=== PATIENT | male | born 1935 | race Caucasian/White ===

== ENCOUNTER 2017-03-26 10:22 | Emergency (ER) | payer MEDICARE ==
[~2017-03-26] VITALS: Ht 170.2 cm; Wt 74.0 kg
[~2017-03-26 10:22] MED LIST: ALBU2.5I INH; ALFU10TA2 PO; CARD240C6 PO; CHOL1CAP6 PO; CLOP75 PO; CO Q100C9 PO; COLE625 PO; COMBAER INH; FURO1TAB93 PO; GABA100C2 PO; GLYB1TAB51 PO; IPRA0.03; LANO0.2510 PO; LANTUSP SQ; LISI20 PO; NOVOLOGP2 SQ; OLIV250C PO; OMEGCAP28 PO; POTA20IN2 PO; PRAV10 PO; PRED1 PO; RAPA8CAP PO; ST J81CH PO; SYMB160A INH; TAB-TAB PO; TRIA.1%T TOP; VIT250TA PO; [UNRECOGNIZED DRUG - CODE] EX; [UNRECOGNIZED DRUG - OTHER] PO
[2017-03-26 10:26] VITALS: BP 129/59; PULSE 94; RESP 28; TEMP 97.8; O2SAT 96
[2017-03-26] MEDS ORDERED: GABA100C4 PO (11:04)
[2017-03-26] MEDS ORDERED: NOVOLOGP2 SQ (11:04)
[2017-03-26] MEDS ORDERED: PRED1 PO (11:04)
[2017-03-26] MEDS ORDERED: ASPI-110 PO (11:04)
[2017-03-26] MEDS ORDERED: TAMS0.4C4 PO (11:04)
[2017-03-26] MEDS ORDERED: VITA250T3 PO (11:04)
[2017-03-26] MEDS ORDERED: LANTUS2P SQ ×2 (11:04)
[2017-03-26] MEDS ORDERED: VENTAER INH (11:04)
[2017-03-26] MEDS ORDERED: SYMB80AE INH (11:04)
[2017-03-26 11:22] VITALS: O2SAT 97
--- NOTE | 2017-03-26 11:26 | PD ---
HPI Chief Complaint: Respiratory Symptoms Time Seen by Provider: 11:26 Travel History International Travel<30 days: No Contact w/Intl Traveler<30days: No Traveled to known affect area: No History of Present Illness HPI 81-year-old male with history of CAD, COPD, CABG, recent diagnosis of pulmonary aspergillosis, presents to the emergency department for evaluation of this. Patient states that he has been unable to fill his ITRACONAZOLE and will not be able to for 3 days due to [facility] not having it on stock. He states that he has been short of breath and feels that he needs his antibiotic today for this to get any better. I give him today's dose and the next 3 days dose to take home. States that he has not been feeling well however he is not feeling any acutely worse. Dates he has been taking his breathing treatments but his breathing has not been getting any better. Denies any significant pain. Denies any fever or chills. He has no other symptoms to report. Patient verbalizes marked frustration with this medication being so difficult to obtain. PFSH Past Medical History Hx Anticoagulant Therapy: No Arthritis: No Asthma: Yes Atrial Fibrillation: No Blood Disorders: No Heart Rhythm Problems: Yes Cancer: No Cardiac Catheterization: Yes (X7) Cardiovascular Problems: Yes High Cholesterol: Yes Chemotherapy: No Chest Pain: Yes Congestive Heart Failure: No COPD: Yes Cerebrovascular Accident: No Coronary Artery Disease: Yes Diabetes: Yes Patient Takes Glucophage: No Diminished Hearing: No Endocrine: Yes Gastrointestinal Disorders: No GERD: No Glaucoma: No Genitourinary: No Headaches: No Hepatitis: No Hiatal Hernia: No Hypertension: No Immune Disorder: No Musculoskeletal: No Neurologic: No Psychiatric: No Reproductive: No Respiratory: Yes Migraines: No Myocardial Infarction: Yes (X7) Pancreatitis: Yes Radiation Therapy: No Seizures: No Sleep Apnea: No Ulcer: No Past Surgical History AICD: No Appendectomy: No Arteriovenous Shunt: No Cardiac Surgery: Yes (ANGIOPLASTY AND STENT) Cholecystectomy: No Coronary Artery Bypass Graft: Yes Coronary Stent: Yes (X1) Insulin Pump: No Joint Replacement: No Pacemaker: No Tonsillectomy: Yes Other Surgery: Yes Social History Alcohol Use: No Tobacco Use: No Substance Use: No Allergies-Medications (Allergen,Severity, Reaction): Coded Allergies: Cephalosporins (Verified Allergy, Severe, 03/26/17) Chlor-Trimeton (Verified Allergy, Severe, "MAKES ME FEEL SICK, 04/03/13) Contrast Media (Verified Allergy, Severe, 03/26/17) Hydroxyzine (Verified Allergy, Severe, 03/26/17) Levofloxacin (Verified Allergy, Severe, 03/26/17) Penicillin (Verified Allergy, Severe, RASH,FEVER, 04/03/13) Rocephin (Verified Allergy, Severe, 03/26/17) Sulfa (Verified Allergy, Severe, 03/26/17) Versed (Verified Allergy, Severe, HURT ALL OVER, 04/03/13) Uncoded Allergies: metopro (Allergy, Severe, 03/26/17) Reported Meds & Prescriptions Reported Meds & Active Scripts Active Itraconazole 100 Mg Cap 100 Mg PO BID 7 Days Reported Astragalus Root (Tragacanth) 1 Pow Pow 500 Mg PO DAILY Fish Oil ([place]-3 Fatty Acids) 300 Mg Capsule 1,200 Mg PO Coq10 (Coenzyme Q10 (Ubidecarenone)) 30 Mg Cap 10 Mg PO DAILY Lisinopril 10 Mg Tab 10 Mg PO DAILY Tamsulosin (Tamsulosin HCl) 0.4 Mg Cap 0.4 Mg PO HS Symbicort Inh (Budesonide/Formoterol Fumarate) 80-4.5 Mcg/Act Aero 1 Puff INH Q12HR Novolog Inj (Insulin Aspart) 1,000 Unit/10 Ml Vial 0 SQ DIRECTED Sliding Scale as directed. Lantus Inj (Insulin Glargine) 1,000 Unit/10 Ml Vial 6 Units SQ HS Lantus Inj (Insulin Glargine) 1,000 Unit/10 Ml Vial 30 Units SQ AM Gabapentin 100 Mg Cap 100 Mg PO TID Prednisone 1 Mg Tab 1 Mg PO DAILY Aspirin 81 (Aspirin) 81 Mg Tabdr 81 Mg PO DAILY Vitamin C (Ascorbic Acid) 250 Mg Tab 250 Mg PO Ventolin Hfa 18 GM Inh (Albuterol Sulfate) 90 Mcg/Act Aer 2.5 Puff INH Q4-6H PRN Review of Systems Except as stated in HPI: all other systems reviewed are Neg Physical Exam Narrative GENERAL: Elderly male patient, lying in bed in no acute distress SKIN: Focused skin assessment warm/dry. HEAD: Atraumatic. Normocephalic. EYES: Pupils equal and round. No scleral icterus. No injection or drainage. ENT: No nasal bleeding or discharge. Mucous membranes pink and moist. NECK: Trachea midline. No JVD. CARDIOVASCULAR: Elevated rate and irregular rhythm. No murmur appreciated. RESPIRATORY: No accessory muscle use. Diminished to auscultation. Breath sounds equal bilaterally. GASTROINTESTINAL: Abdomen soft, non-tender, nondistended. Hepatic and splenic margins not palpable. MUSCULOSKELETAL: No obvious deformities. No clubbing. No cyanosis. No edema. NEUROLOGICAL: Awake and alert. No obvious cranial nerve deficits. Motor grossly within normal limits. Normal speech. PSYCHIATRIC: Appropriate mood and affect; insight and judgment normal. Data Data Last Documented VS Vital Signs Date Time Temp Pulse Resp B/P Pulse Ox O2 Delivery O2 Flow Rate FiO2 03/26/17 12:27 96 18 149/89 98 Room Air 03/26/17 11:22 2 03/26/17 10:26 97.8 Orders Complete Blood Count With Diff (03/26/17 11:20) Comprehensive Metabolic Panel (03/26/17 11:20) B-Type Natriuretic Peptide (03/26/17 11:20) Act Partial Throm Time (Ptt) (03/26/17 11:20) Prothrombin Time / Inr (Pt) (03/26/17 11:20) Ckmb (Isoenzyme) Profile (03/26/17 11:20) Troponin I (03/26/17 11:20) Urinalysis - C+S If Indicated (03/26/17 11:20) Blood Culture (03/26/17 11:20) Iv Access Insert/Monitor (03/26/17 11:20) Electrocardiogram (03/26/17 11:20) Ecg Monitoring (03/26/17 11:20) Oximetry (03/26/17 11:20) Oxygen Administration (03/26/17 11:20) Chest, Single Ap (03/26/17 11:20) Sodium Chloride 0.9% Flush (Ns Flush) (03/26/17 11:30) Albuterol-Ipratropium Neb (Duoneb Neb) (03/26/17 11:30) CKMB (03/26/17 11:25) CKMB% (03/26/17 11:25) Itraconazole (Sporanox) (03/26/17 12:15) Dexamethasone Inj (Decadron Inj) (8/12/17 12:45) Labs Laboratory Tests Test 03/26/17 03/26/17 11:25 12:26 White Blood Count 10.1 TH/MM3 Red Blood Count 4.36 MIL/MM3 Hemoglobin 13.6 GM/DL Hematocrit 40.5 % Mean Corpuscular Volume 92.9 FL Mean Corpuscular Hemoglobin 31.1 PG Mean Corpuscular Hemoglobin 33.5 % Concent Red Cell Distribution Width 13.7 % Platelet Count 177 TH/MM3 Mean Platelet Volume 8.8 FL Neutrophils (%) (Auto) 70.6 % Lymphocytes (%) (Auto) 13.4 % Monocytes (%) (Auto) 8.5 % Eosinophils (%) (Auto) 6.8 % Basophils (%) (Auto) 0.7 % Neutrophils # (Auto) 7.1 TH/MM3 Lymphocytes # (Auto) 1.3 TH/MM3 Monocytes # (Auto) 0.9 TH/MM3 Eosinophils # (Auto) 0.7 TH/MM3 Basophils # (Auto) 0.1 TH/MM3 CBC Comment DIFF FINAL Differential Comment Prothrombin Time 10.7 SEC Prothromb Time International 1.0 RATIO Ratio Activated Partial 26.5 SEC Thromboplast Time Sodium Level 140 MEQ/L Potassium Level 4.8 MEQ/L Chloride Level 105 MEQ/L Carbon Dioxide Level 28.4 MEQ/L Anion Gap 7 MEQ/L Blood Urea Nitrogen 33 MG/DL Creatinine 1.46 MG/DL Estimat Glomerular Filtration 46 ML/MIN Rate Random Glucose 210 MG/DL Calcium Level 9.1 MG/DL Total Bilirubin 0.6 MG/DL Aspartate Amino Transf 20 U/L (AST/SGOT) Alanine Aminotransferase 28 U/L (ALT/SGPT) Alkaline Phosphatase 82 U/L Total Creatine Kinase 145 U/L Creatine Kinase MB 3.7 NG/ML Troponin I LESS THAN 0.02 NG/ML B-Type Natriuretic Peptide 76 PG/ML Total Protein 7.2 GM/DL Albumin 3.4 GM/DL Urine Color LIGHT-YELLOW Urine Turbidity CLEAR Urine pH 5.0 Urine Specific [place] 1.007 Urine Protein NEG mg/dL Urine Glucose (UA) NEG mg/dL Urine Ketones NEG mg/dL Urine Occult Blood NEG Urine Nitrite NEG Urine Bilirubin NEG Urine Urobilinogen LESS THAN 2.0 MG/DL Urine Leukocyte Esterase NEG Urine RBC 1 /hpf Urine WBC LESS THAN 1 /hpf Microscopic Urinalysis Comment CULT NOT INDICATED MDM Medical Decision Making Medical Screen Exam Complete: Yes Emergency Medical Condition: Yes Medical Record Reviewed: Yes Differential Diagnosis Aspergillosis versus pneumonia versus influenza versus COPD versus COPD exacerbation Narrative Course 81-year-old male presents to the emergency department requesting itraconazole as he has been unable to obtain it as prescribed due to [facility] been out of it. Dr. Reyna has described 100 mg 2 times a day for the next 30 days for pulmonary aspergillosis. He prescribed this on March 15 in the patient has not yet filled it. He states that he was "holding off" at first but feels that since his breathing has not improved with his breathing treatments, he needs it filled now. Patient appears without distress. He is slightly tachycardic. Breathing treatment is provided with some improvement but not complete improvement in his symptoms. Laboratory Tests Test 03/26/17 03/26/17 11:25 12:26 White Blood Count 10.1 TH/MM3 Red Blood Count 4.36 MIL/MM3 Hemoglobin 13.6 GM/DL Hematocrit 40.5 % Mean Corpuscular Volume 92.9 FL Mean Corpuscular Hemoglobin 31.1 PG Mean Corpuscular Hemoglobin 33.5 % Concent Red Cell Distribution Width 13.7 % Platelet Count 177 TH/MM3 Mean Platelet Volume 8.8 FL Neutrophils (%) (Auto) 70.6 % Lymphocytes (%) (Auto) 13.4 % Monocytes (%) (Auto) 8.5 % Eosinophils (%) (Auto) 6.8 % Basophils (%) (Auto) 0.7 % Neutrophils # (Auto) 7.1 TH/MM3 Lymphocytes # (Auto) 1.3 TH/MM3 Monocytes # (Auto) 0.9 TH/MM3 Eosinophils # (Auto) 0.7 TH/MM3 Basophils # (Auto) 0.1 TH/MM3 CBC Comment DIFF FINAL Differential Comment Prothrombin Time 10.7 SEC Prothromb Time International 1.0 RATIO Ratio Activated Partial 26.5 SEC Thromboplast Time Sodium Level 140 MEQ/L Potassium Level 4.8 MEQ/L Chloride Level 105 MEQ/L Carbon Dioxide Level 28.4 MEQ/L Anion Gap 7 MEQ/L Blood Urea Nitrogen 33 MG/DL Creatinine 1.46 MG/DL Estimat Glomerular Filtration 46 ML/MIN Rate Random Glucose 210 MG/DL Calcium Level 9.1 MG/DL Total Bilirubin 0.6 MG/DL Aspartate Amino Transf 20 U/L (AST/SGOT) Alanine Aminotransferase 28 U/L (ALT/SGPT) Alkaline Phosphatase 82 U/L Total Creatine Kinase 145 U/L Creatine Kinase MB 3.7 NG/ML Troponin I LESS THAN 0.02 NG/ML B-Type Natriuretic Peptide 76 PG/ML Total Protein 7.2 GM/DL Albumin 3.4 GM/DL Urine Color LIGHT-YELLOW Urine Turbidity CLEAR Urine pH 5.0 Urine Specific [place] 1.007 Urine Protein NEG mg/dL Urine Glucose (UA) NEG mg/dL Urine Ketones NEG mg/dL Urine Occult Blood NEG Urine Nitrite NEG Urine Bilirubin NEG Urine Urobilinogen LESS THAN 2.0 MG/DL Urine Leukocyte Esterase NEG Urine RBC 1 /hpf Urine WBC LESS THAN 1 /hpf Microscopic Urinalysis Comment CULT NOT INDICATED Last Impressions Chest X-Ray 03/26/17 1120 Signed Impressions: Service Date/Time: Tuesday, March 26, 2017 11:17 - CONCLUSION: 1. Streaky opacity at the lung bases this may represent atelectasis or early infiltrate. 2. Status post median sternotomy with no perihilar edema. Kevin Shea MD Findings are discussed with the patient and his . I explained the patient that until he gets his infection taken care of, his symptoms will likely not improve. He is given a dose of itraconazole here. His tells me that [facility] has a partial supply so I provided him with a 7 day prescription so he can at least fill this. I have called [facility] and [facility] in neither of them have this in stock. I planed to the patient that if he does not get better or symptoms get acutely worse he'll need to come back to the emergency department. Him and his agree with this plan of care. They'll be discharged at this time. Diagnosis Primary Impression: Pulmonary aspergillosis Referrals: Primary Care Physician Director Of Provider Relations Patient Instructions: COPD (Chronic Obstructive Pulmonary Disease) (ED), Community Acquired Pneumonia (GEN), General Instructions Additional Instructions: Follow-up with your shake cutter Follow-up with your primary care provider I have provided you with a seven-day prescription for your itraconazole. First is has been given here in the emergency department. Take as prescribed. Monitor blood glucose closely as you received a steroid here in the ED; this may cause a transient increase in your blood glucose. Return immediately with any acute worsening of symptoms Med/Other Pt SpecificInfo: Prescription(s) given Scripts Itraconazole 100 Mg [id number] Mg PO BID 7 Days Ref 0 Prov:Ashlyn Talley 03/26/17 Disposition: 01 DISCHARGE HOME Condition: Stable Ashlyn Talley Mar 26, 2017 11:26
[2017-03-26] MEDS ORDERED: SODIUM CHLORIDE 0.9% FLUSH 10 ML FLUSH IVF PRN (11:30)
[2017-03-26] MEDS ORDERED: RESP: ALBUTEROL 2.5 MG/IPRATROPIUM 0.5 MG NEB (SCH) INH ONE (11:30)
--- NOTE | 2017-03-26 11:41 | RADRPT ---
EXAM DATE/TIME: 03/26/2017 11:17 [facility] COMPARISON: No previous studies available for comparison. INDICATIONS : Short of breath. MEDICAL HISTORY : Carcinoma, prostatic. Diabetes mellitus type II. Bronchitis SURGICAL HISTORY : CABG. ENCOUNTER: Initial ACUITY: 2 days PAIN SCORE: 0/10 LOCATION: Bilateral chest FINDINGS: A single view of the chest demonstrates of the lungs to be symmetrically aerated without evidence of mass, and solid if infiltrate or effusion. There is streaky opacity at the lung bases. The patient is status post median sternotomy for bypass grafting procedure. There are multiple overlying electrocar diogram leads. The cardiomediastinal contours are unremarkable. Osseous structures are intact. CONCLUSION: 1. Streaky opacity at the lung bases this may represent atelectasis or early infiltrate. 2. Status post median sternotomy with no perihilar edema. Kevin Shea MD on March 26, 2017 at 11:38 Board Certified Radiologist. This report was verified electronically.
[2017-03-26 11:43] LABS: AUTOMATED NEUTROPHIL # 7.1 TH/MM3 (1.8-7.7); BASOPHIL # 0.1 TH/MM3 (0-0.2); BASOPHIL % 0.7 % (0.0-2.0); EOSINOPHIL # 0.7 TH/MM3 (0-0.4); EOSINOPHIL % 6.8 % (0.0-4.0); HEMATOCRIT 40.5 % (39.0-51.0); HEMO FLAGS DIFF FINAL; LYMPH % 13.4 % (9.0-44.0); LYMPHOCYTE # 1.3 TH/MM3 (1.0-4.8); MEAN CELL VOLUME 92.9 FL (80.0-100.0); MEAN CORPUSCULAR HEMOGLOBIN 31.1 PG (27.0-34.0); MEAN CORPUSCULAR HGB CONC 33.5 % (32.0-36.0); MONO % 8.5 % (0.0-8.0); NEUT % 70.6 % (16.0-70.0); PLATELET COUNT 177 TH/MM3 (150-450); RED BLOOD COUNT 4.36 MIL/MM3 (4.50-5.90); RED CELL DISTRIBUTION WIDTH 13.7 % (11.6-17.2); WHITE BLOOD COUNT 10.1 TH/MM3 (4.0-11.0)
[2017-03-26 11:53] LABS: APTT (PATIENT) 26.5 SEC (24.3-30.1); PROTHROMBIN TIME - PATIENT 10.7 SEC (9.8-11.6)
[2017-03-26 11:54] LABS: ANION GAP 7 MEQ/L (5-15); AST (GOT) 20 U/L (15-37); BICARBONATE 28.4 MEQ/L (21.0-32.0); BLOOD UREA NITROGEN 33 MG/DL (7-18); CHLORIDE 105 MEQ/L (98-107); GLOMERULAR FILTRATION RATE 46 ML/MIN (>89); POTASSIUM 4.8 MEQ/L (3.5-5.1); SODIUM (NA) 140 MEQ/L (136-145)
[2017-03-26 12:00] LABS: ALKALINE PHOSPHATASE 82 U/L (45-117); ALT (GPT) 28 U/L (12-78); CREATINE KINASE 145 U/L (39-308); TOTAL BILIRUBIN ADULT 0.6 MG/DL (0.2-1.0)
[2017-03-26 12:13] LABS: CKMB 3.7 NG/ML (0.5-3.6)
[2017-03-26] MEDS ORDERED: ITRACONAZOLE 100 MG CAP PO ONE (12:15)
[2017-03-26] MEDS ORDERED: COQ130CA PO (12:21)
[2017-03-26] MEDS ORDERED: OMEG300C5 PO (12:21)
[2017-03-26] MEDS ORDERED: LISI10TA3 PO (12:21)
[2017-03-26] MEDS ORDERED: ASTRPOW4 PO (12:21)
[2017-03-26 12:27] VITALS: BP 149/89; PULSE 96; RESP 18; O2SAT 98
[2017-03-26] MEDS ORDERED: DEXAMETHASONE SOD PHOS 4 MG/ML VIAL IV PUSH ONE (12:45)
[2017-03-26 12:47] LABS: BLOOD, URINE NEG (NEG); COMMENT (UR) CULT NOT INDICATED; CULTURE IF INDICATED CULT NOT INDICATED; GLUCOSE,URINE NEG (NEG); KETONE, URINE NEG (NEG); NITRITE,URINE NEG (NEG); URINE COLOR LIGHT-YELLOW (YELLW/STRAW)
[2017-03-26] MEDS ORDERED: ITRA100C PO (12:56)
--- NOTE | 2017-03-27 12:25 | EKG ---
Date Performed: 03/26/2017 Time Performed: 11:22:11 PTAGE: 81 years EKG: Sinus rhythm WITH OCCASIONAL SUPRAVENTRICULAR PREMATURE COMPLEXES BORDERLINE ECG PREVIOUS TRACING 08/13/11 Compared to prior tracing no significant change DOCTOR: Gio Sears Interpretating Date/Time 03/27/2017 12:22:36
== END 2017-03-26 13:33 | disposition home or self-care (01) ==
LOC: NEPE 10:22
DX: B44.9 Aspergillosis, unspecified (principal); I25.10 Atherosclerotic heart disease of native coronary artery without angina pectoris; J44.9 Chronic obstructive pulmonary disease, unspecified; E11.9 Type 2 diabetes mellitus without complications; I25.2 Old myocardial infarction; E78.00 Pure hypercholesterolemia, unspecified; K85.90 Acute pancreatitis without necrosis or infection, unspecified; Z79.4 Long term (current) use of insulin; Z79.899 Other long term (current) drug therapy
CPT/HCPCS: 71010; 80053; 81001; 82550; 82552; 83880; 84484; 85025; 85610; 85730; 87040; 93005; 94664; 96374; 99285; J1100

== ENCOUNTER 2017-04-08 09:44 | Inpatient (IN) | payer MEDICARE ==
[2017-04-08] VITALS (7 sets, daily range): BP systolic 101–124; BP diastolic 50–68; PULSE 64–88; RESP 18–21; TEMP 98.2–99.1; O2SAT 93–97
[~2017-04-08] VITALS: Ht 175.3 cm; Wt 78.5 kg
[~2017-04-08 09:44] MED LIST changes: -ALBU2.5I INH; -ALFU10TA2 PO; +ASPI-110 PO; +ASTRPOW4 PO; -CARD240C6 PO; -CHOL1CAP6 PO; -CLOP75 PO; -CO Q100C9 PO; -COLE625 PO; -COMBAER INH; +COQ130CA PO; -FURO1TAB93 PO; -GABA100C2 PO; +GABA100C4 PO; -GLYB1TAB51 PO; -IPRA0.03; +ITRA100C PO; -LANO0.2510 PO; +LANTUS2P SQ; -LANTUSP SQ; +LISI10TA3 PO; -LISI20 PO; -OLIV250C PO; +OMEG300C5 PO; -OMEGCAP28 PO; -POTA20IN2 PO; -PRAV10 PO; -RAPA8CAP PO; -ST J81CH PO; -SYMB160A INH; +SYMB80AE INH; -TAB-TAB PO; +TAMS0.4C4 PO; -TRIA.1%T TOP; +VENTAER INH; -VIT250TA PO; +VITA250T3 PO; -[UNRECOGNIZED DRUG - CODE] EX; -[UNRECOGNIZED DRUG - OTHER] PO
--- NOTE | 2017-04-08 11:07 | PD ---
HPI Chief Complaint: Respiratory Distress Time Seen by Provider: 10:58 Travel History International Travel<30 days: No Contact w/Intl Traveler<30days: No Traveled to known affect area: No History of Present Illness HPI 81-year-old male came to the emergency room with history of difficulty breathing this morning. Patient has history of COPD and has been recently diagnosed with pulmonary aspergillosis. He took his inhaler but did not feel better. After that he took his 's oxygen from the concentrator and says that usually that helps within 20 minutes but when it didn't he decided to come to the emergency room. He checked his oxygen saturation at home and it was 76% on room air. However upon arrival in the ER triage his oxygen saturation was 96 % on room air. Patient says that when he walks around it drops. Patient was discharged from the hospital not too long ago after being treated for pulmonary aspergillosis. He was discharged home on Itraconazole. He does not appear to be in any significant distress. There is a sputum sample that he has collected in a specimen cup. [facility] Past Medical History Narrative Medical List of his past medical, surgical, social and family history is reviewed from the nursing note. Hx Anticoagulant Therapy: No Arthritis: No Asthma: Yes Atrial Fibrillation: No Blood Disorders: No Heart Rhythm Problems: Yes Cancer: No Cardiac Catheterization: Yes (X7) Cardiovascular Problems: Yes High Cholesterol: Yes Chemotherapy: No Chest Pain: Yes Congestive Heart Failure: No COPD: Yes Cerebrovascular Accident: No Coronary Artery Disease: Yes Diabetes: Yes Diminished Hearing: No Endocrine: Yes Gastrointestinal Disorders: No GERD: No Glaucoma: No Genitourinary: No Headaches: No Hepatitis: No Hiatal Hernia: No Hypertension: No Immune Disorder: No Musculoskeletal: No Neurologic: No Psychiatric: No Reproductive: No Respiratory: Yes Migraines: No Myocardial Infarction: Yes (X7) Pancreatitis: Yes Radiation Therapy: No Seizures: No Sleep Apnea: No Ulcer: No ?: Not Past Surgical History AICD: No Appendectomy: No Arteriovenous Shunt: No Cardiac Surgery: Yes (ANGIOPLASTY AND STENT) Cholecystectomy: No Coronary Artery Bypass Graft: Yes Coronary Stent: Yes (X1) Insulin Pump: No Joint Replacement: No Pacemaker: No Tonsillectomy: Yes Other Surgery: Yes Social History Alcohol Use: No Tobacco Use: No Substance Use: No Allergies-Medications (Allergen,Severity, Reaction): Coded Allergies: Sulfa (Sulfonamide Antibiotics) (Unverified Allergy, Severe, 03/29/17) cefepime (Unverified Allergy, Severe, 03/29/17) ceftaroline fosamil (Unverified Allergy, Severe, 03/29/17) ceftriaxone (Unverified Allergy, Severe, 03/29/17) chlorpheniramine (Unverified Allergy, Severe, "MAKES ME FEEL SICK, 03/29/17 ) diatrizoate meglumine (Unverified Allergy, Severe, 03/29/17) gadobenic acid (Unverified Allergy, Severe, 03/29/17) gadodiamide (Unverified Allergy, Severe, 03/29/17) gadoteridol (Unverified Allergy, Severe, 03/29/17) hydroxyzine (Unverified Allergy, Severe, 03/29/17) iodixanol (Unverified Allergy, Severe, 03/29/17) iohexol (Unverified Allergy, Severe, 03/29/17) levofloxacin (Unverified Allergy, Severe, 03/29/17) midazolam (Unverified Allergy, Severe, HURT ALL OVER, 03/29/17) penicillin G (Unverified Allergy, Severe, RASH,FEVER, 03/29/17) Uncoded Allergies: metopro (Allergy, Severe, 03/26/17) Comments This extensive list of his allergies reviewed from the nursing note. Reported Meds & Prescriptions Reported Meds & Active Scripts Active Reported Itraconazole 100 Mg Cap 100 Mg PO BID Astragalus Root (Tragacanth) 1 Pow Pow 500 Mg PO DAILY Fish Oil ([place]-3 Fatty Acids) 300 Mg Capsule 1,200 Mg PO Coq10 (Coenzyme Q10 (Ubidecarenone)) 30 Mg Cap 10 Mg PO DAILY Lisinopril 10 Mg Tab 10 Mg PO DAILY Tamsulosin (Tamsulosin HCl) 0.4 Mg Cap 0.4 Mg PO HS Symbicort Inh (Budesonide/Formoterol Fumarate) 80-4.5 Mcg/Act Aero 1 Puff INH Q12HR Novolog Inj (Insulin Aspart) 1,000 Unit/10 Ml Vial 0 SQ DIRECTED Sliding Scale as directed. Lantus Inj (Insulin Glargine) 1,000 Unit/10 Ml Vial 6 Units SQ HS Lantus Inj (Insulin Glargine) 1,000 Unit/10 Ml Vial 30 Units SQ AM Gabapentin 100 Mg Cap 100 Mg PO TID Prednisone 1 Mg Tab 1 Mg PO DAILY Aspirin 81 (Aspirin) 81 Mg Tabdr 81 Mg PO DAILY Vitamin C (Ascorbic Acid) 250 Mg Tab 250 Mg PO Ventolin Hfa 18 GM Inh (Albuterol Sulfate) 90 Mcg/Act Aer 2.5 Puff INH Q4-6H PRN Narrative Medication List of his home medications reviewed from the nursing note. Review of Systems Except as stated in HPI: all other systems reviewed are Neg Physical Exam Narrative GENERAL: Patient is awake alert, no obvious distress SKIN: Focused skin assessment warm/dry. HEAD: Atraumatic. Normocephalic. EYES: Pupils equal and round. No scleral icterus. No injection or drainage. ENT: No nasal bleeding or discharge. Mucous membranes pink and moist. NECK: Trachea midline. No JVD. CARDIOVASCULAR: Regular rate and rhythm. No murmur appreciated. RESPIRATORY: No accessory muscle use. Clear to auscultation. Breath sounds equal bilaterally. GASTROINTESTINAL: Abdomen soft, non-tender, nondistended. Hepatic and splenic margins not palpable. MUSCULOSKELETAL: No obvious deformities. No clubbing. No cyanosis. No edema. NEUROLOGICAL: Awake and alert. No obvious cranial nerve deficits. Motor grossly within normal limits. Normal speech. PSYCHIATRIC: Appropriate mood and affect; insight and judgment normal. Data Data Last Documented VS Vital Signs Date Time Temp Pulse Resp B/P (MAP) Pulse Ox O2 Delivery O2 Flow Rate FiO2 04/08/17 11:09 18 96 Room Air 04/08/17 10:11 75 04/08/17 10:10 99.0 Orders Orders Electrocardiogram (04/08/17 09:57) Complete Blood Count With Diff (04/08/17 11:01) Basic Metabolic Panel (Bmp) (04/08/17 11:01) Chest, Pa & Lat (04/08/17 11:01) Blood Culture (04/08/17 11:01) Iv Access Insert/Monitor (04/08/17 11:01) Ecg Monitoring (04/08/17 11:01) Oxygen Administration (04/08/17 11:01) Oximetry (04/08/17 11:01) Troponin I (04/08/17 11:06) B-Type Natriuretic Peptide (04/08/17 11:07) Lactic Acid (04/08/17 12:07) Azithromycin Inj (Zithromax Inj) (04/08/17 12:15) Admit Order (Ed Use Only) (04/08/17 12:53) Labs Laboratory Tests Test 04/08/17 11:05 White Blood Count 16.6 TH/MM3 Red Blood Count 3.60 MIL/MM3 Hemoglobin 11.2 GM/DL Hematocrit 33.4 % Mean Corpuscular Volume 92.7 FL Mean Corpuscular Hemoglobin 31.0 PG Mean Corpuscular Hemoglobin Concent 33.5 % Red Cell Distribution Width 13.9 % Platelet Count 139 TH/MM3 Mean Platelet Volume 10.3 FL Neutrophils (%) (Auto) 85.4 % Lymphocytes (%) (Auto) 5.7 % Monocytes (%) (Auto) 6.6 % Eosinophils (%) (Auto) 2.1 % Basophils (%) (Auto) 0.2 % Neutrophils # (Auto) 14.2 TH/MM3 Lymphocytes # (Auto) 0.9 TH/MM3 Monocytes # (Auto) 1.1 TH/MM3 Eosinophils # (Auto) 0.3 TH/MM3 Basophils # (Auto) 0.0 TH/MM3 CBC Comment DIFF FINAL Differential Comment Blood Urea Nitrogen 36 MG/DL Creatinine 1.49 MG/DL Random Glucose 167 MG/DL Calcium Level 8.2 MG/DL Sodium Level 136 MEQ/L Potassium Level 3.8 MEQ/L Chloride Level 101 MEQ/L Carbon Dioxide Level 25.8 MEQ/L Anion Gap 9 MEQ/L Estimat Glomerular Filtration Rate 45 ML/MIN Troponin I LESS THAN 0.02 NG/ML B-Type Natriuretic Peptide 415 PG/ML MDM Medical Decision Making Medical Screen Exam Complete: Yes Emergency Medical Condition: Yes Medical Record Reviewed: Yes Interpretation(s) Twelve-lead EKG was reviewed by me. Normal sinus rhythm, normal axis, peaked T waves. Heart rate of 71 bpm. Differential Diagnosis Pneumonia, bronchitis, COPD exacerbation, CHF Narrative Course 1 PM blood test results of back and patient has leukocytosis. Chest x-ray shows an early infiltrate. Patient has extensive list of antibiotic allergies. The only thing that patient felt comfortable and was safe to receive was IV Zithromax. I discussed the case with the hospitalist who has agreed to admit. I discussed with the patient as well as his for an extended amount of time regarding his diagnosis and findings and answered all the questions to the best of my ability. Procedures EKG Prior to Arrival: No Diagnosis Primary Impression: Pneumonia Qualified Codes: J18.1 - Lobar pneumonia, unspecified organism Additional Impression: Respiratory distress Admitting Information Admitting Physician Requests: Riaz Hernandez MD Apr 08, 2017 11:07
--- NOTE | 2017-04-08 11:50 | RADRPT ---
EXAM DATE/TIME: 04/08/2017 11:13 [facility] COMPARISON: CHEST SINGLE AP, March 26, 2017, 11:17. INDICATIONS : Short of breath. MEDICAL HISTORY : Chronic obstructive pulmonary disease. Aspergillus infection found recently. SURGICAL HISTORY : CABG. ENCOUNTER: Initial ACUITY: 1 day PAIN SCORE: 4/10 LOCATION: Bilateral chest FINDINGS: AP and lateral views of the chest demonstrate a normal-sized cardiac silhouette in this patient post median sternotomy and CABG. Epicardial pacing wire remains present. There is new mild interstitial op acity in the right mid to upper lung zone. Linear subpleural opacities are visualized in the right lo wer lung zone likely representing [place] B-lines. There is blunting of the costophrenic sulci bilater ally on the lateral projection. No acute osseous abnormality is visualized. CONCLUSION: Mild interstitial opacity in the right midlung zone with [place] B-lines on the right. These findings favor asymmetric pulmonary edema as the cause. The right midlung zone changes could also be related t o infection. There are trace bilateral pleural effusions. Ronnell Fernandes MD on April 08, 2017 at 11:46 Board Certified Radiologist. This report was verified electronically.
[2017-04-08 11:52] LABS: AUTOMATED NEUTROPHIL # 14.2 TH/MM3 (1.8-7.7); BASOPHIL % 0.2 % (0.0-2.0); EOSINOPHIL # 0.3 TH/MM3 (0-0.4); EOSINOPHIL % 2.1 % (0.0-4.0); HEMATOCRIT 33.4 % (39.0-51.0); HEMO FLAGS DIFF FINAL; LYMPH % 5.7 % (9.0-44.0); LYMPHOCYTE # 0.9 TH/MM3 (1.0-4.8); MEAN CELL VOLUME 92.7 FL (80.0-100.0); MEAN CORPUSCULAR HGB CONC 33.5 % (32.0-36.0); MONO % 6.6 % (0.0-8.0); NEUT % 85.4 % (16.0-70.0); PLATELET COUNT 139 TH/MM3 (150-450); RED CELL DISTRIBUTION WIDTH 13.9 % (11.6-17.2); WHITE BLOOD COUNT 16.6 TH/MM3 (4.0-11.0)
[2017-04-08 11:54] LABS: BICARBONATE 25.8 MEQ/L (21.0-32.0); POTASSIUM 3.8 MEQ/L (3.5-5.1)
[2017-04-08] MEDS ORDERED: AZITHROMYCIN INJ 500 MG in SODIUM CHLOR 0.9% 250 ML INJ 250 ML IV ONE (12:15)
[2017-04-08] MEDS ORDERED: SODIUM CHLOR 0.9% 1000 ML INJ 1,000 ML IV SCH (13:38)
[2017-04-08] MEDS ORDERED: NALOXONE HCL 0.4 MG/ML AMP IV PRN (13:45)
[2017-04-08] MEDS ORDERED: BISACODYL 10 MG SUPP RECTAL PRN (13:45)
[2017-04-08] MEDS ORDERED: ACETAMINOPHEN 325 MG TAB PO PRN (13:45)
[2017-04-08] MEDS ORDERED: SODIUM CHLORIDE 0.9% FLUSH 10 ML FLUSH IV FLUSH PRN (13:45)
[2017-04-08] MEDS ORDERED: ONDANSETRON HCL 4 MG/2 ML VIAL IVP PRN (13:45)
--- NOTE | 2017-04-08 15:37 | HHI.HP ---
HPI Service [facility] Primary Care Physician Germán Monzon MD Admission Diagnosis pneumonia, respiratory distress Diagnoses: Chief Complaint: sob, cp (Jessa Esteban) Travel History International Travel<30 Days: No Contact w/Intl Traveler <30 Da: No Traveled to Known Affected Are: No (Jessa Esteban) History of Present Illness This a pleasant 81-year-old male with significant past medical history of COPD, asthma, chronic bronchitis, CAD, prior myocardial infarction, type 2 diabetes. Patient presented to the emergency room with complaint of worsening shortness of breath. According to the patient, he has been feeling sick for the last 2 weeks. He went to see his primary care physician who ordered sputum culture, culture came back positive for pulmonary aspergillosis and he was instructed to start taking Itraconazole. Patient was actually seen here on March 26, 2017 and was given his first IV dose at that time as the pharmacy did not have the medication. Patient states that he has been using nebulizers at home without much relief. He denies any fever, has had chills. Has had increased cough with sputum that is dark brown. He has been using his 's oxygen. He doesn' t follow-up regularly with the outside salesman. Dr. Reyna is his financial management whom he sees regularly for management of his asthma and pulmonary disorder. He is on chronic oral steroids. Patient states that he checked his oxygen at home and was 76 on room air. When he arrived in the emergency room, he sats were 96 % on room air. Patient indicated that when he walks his oxygen drops. Patient came in caring a sputum sample from home. Patient was evaluated in emergency room, laboratory workup was completed. CBC remarkable for leukocytosis, WBC 16.6. Chest x-ray shows early infiltrate. BMP remarkable for chronic kidney disease, creatinine 1.49. B natruretic peptide 4:15, lactic acid 1.3 . Patient has extensive list of antibiotics, he received IV Zithromax. At this time, patient is hemodynamically stable. He is noted with frequent PVCs on telemetry monitoring. Denies any chest pain, no palpitations. Patient also endorses that he has a chronic ulcerated area to the right great toe, he has been under the care of a assistant associate professor who has done approximately 2 grafts and he receives daily wound care. Patient is admitted for further evaluation and treatment. (Jessa Esteban) Review of Systems Constitutional: COMPLAINS OF: Fatigue, Weight loss, Chills, Dizziness Respiratory: COMPLAINS OF: Cough, Wheezing, Sputum production Cardiovascular: COMPLAINS OF: Dyspnea on Exertion Genitourinary: COMPLAINS OF: Nocturia Other CHRONIC rIGH FOOT ULCER , being followed by Dr Leigh . Otherwise ROS is negative for 12 systems. (Indira Tom MD) Past Family Social History Past Medical History Coronary artery disease Stents Hypertension Hyperlipidemia Recent diagnosis of aspergillosis COPD Chronic bronchitis Asthma Type 2 diabetes Peripheral neuropathy Chronic right great toe ulceration, has been treated by assistant associate professor for the last 4 months Past Surgical History Cardiac catheter with stent and angioplasty Tonsillectomy Reported Medications Reported Meds & Active Scripts Active Reported Astragalus Root (Tragacanth) 1 Pow Pow 500 Mg PO DAILY Fish Oil ([place]-3 Fatty Acids) 300 Mg Capsule 1,200 Mg PO Coq10 (Coenzyme Q10 (Ubidecarenone)) 30 Mg Cap 10 Mg PO DAILY Lisinopril 10 Mg Tab 10 Mg PO DAILY Tamsulosin (Tamsulosin HCl) 0.4 Mg Cap 0.4 Mg PO HS Symbicort Inh (Budesonide/Formoterol Fumarate) 80-4.5 Mcg/Act Aero 1 Puff INH Q12HR Novolog Inj (Insulin Aspart) 1,000 Unit/10 Ml Vial 0 SQ DIRECTED Sliding Scale as directed. Lantus Inj (Insulin Glargine) 1,000 Unit/10 Ml Vial 6 Units SQ HS Lantus Inj (Insulin Glargine) 1,000 Unit/10 Ml Vial 30 Units SQ AM Gabapentin 100 Mg Cap 100 Mg PO TID Prednisone 1 Mg Tab 1 Mg PO DAILY Aspirin 81 (Aspirin) 81 Mg Tabdr 81 Mg PO DAILY Vitamin C (Ascorbic Acid) 250 Mg Tab 250 Mg PO Ventolin Hfa 18 GM Inh (Albuterol Sulfate) 90 Mcg/Act Aer 2.5 Puff INH Q4-6H PRN (Jessa Esteban) Allergies: Coded Allergies: Sulfa (Sulfonamide Antibiotics) (Unverified Allergy, Severe, 03/29/17) cefepime (Unverified Allergy, Severe, 03/29/17) ceftaroline fosamil (Unverified Allergy, Severe, 03/29/17) ceftriaxone (Unverified Allergy, Severe, 03/29/17) chlorpheniramine (Unverified Allergy, Severe, "MAKES ME FEEL SICK, 03/29/17 ) diatrizoate meglumine (Unverified Allergy, Severe, 03/29/17) gadobenic acid (Unverified Allergy, Severe, 03/29/17) gadodiamide (Unverified Allergy, Severe, 03/29/17) gadoteridol (Unverified Allergy, Severe, 03/29/17) hydroxyzine (Unverified Allergy, Severe, 03/29/17) iodixanol (Unverified Allergy, Severe, 03/29/17) iohexol (Unverified Allergy, Severe, 03/29/17) levofloxacin (Unverified Allergy, Severe, 03/29/17) midazolam (Unverified Allergy, Severe, HURT ALL OVER, 03/29/17) penicillin G (Unverified Allergy, Severe, RASH,FEVER, 03/29/17) Uncoded Allergies: metopro (Allergy, Severe, 03/26/17) Active Ordered Medications Inpatient Medications Acetaminophen (Tylenol) 650 mg Q4H PRN PO TEMP > 100.4; Start 04/08/17 at 13:45 Albuterol/ Ipratropium (Duoneb Neb) 1 ampule QID NEB PRN NEB WHEEZING; Start at 13:45 Aspirin (Ecotrin Ec) 81 mg DAILY PO ; Start 04/09/17 at 09:00 Azithromycin 500 mg/Sodium Chloride 250 ml @ 250 mls/hr Q24H IV ; Start at 12:00; Status UNV Bisacodyl (Dulcolax Supp) 10 mg DAILY PRN RECTAL SEVERE CONSITIPATION; Start at 13:45 Budesonide/ Formoterol Fumarate (Symbicort 80-4.5 Mcg Inh) 1 puff Q12HR INH ; Start 04/08/17 at 21:00 Gabapentin (Neurontin) 100 mg TID PO ; Start 04/08/17 at 18:00 Lisinopril (Prinivil) 10 mg DAILY PO ; Start 04/09/17 at 09:00 Naloxone HCl (Narcan Inj) 0.4 mg UNSCH PRN IV SEE LABEL COMMENTS; Start at 13:45 Ondansetron HCl (Zofran Inj) 4 mg Q6H PRN IVP NAUSEA OR VOMITING; Start at 13:45 Prednisone (Deltasone) 1 mg DAILY PO ; Start 04/09/17 at 09:00 Senna/Docusate Sodium (Yana-Colace) 1 tab BID PO ; Start 04/08/17 at 21:00 Sodium Chloride (NS Flush) 2 ml BID IV FLUSH ; Start 04/08/17 at 21:00 Tamsulosin HCl (Flomax) 0.4 mg HS PO ; Start 04/09/17 at 21:00 Family History Reviewed, non contributory Social History , lives with . Has grown children. Quit smoking 20 years, no substance abuse, no ETOH (Jessa Esteban) Physical Exam Vital Signs Vital Signs Date Time Temp Pulse Resp B/P (MAP) Pulse Ox O2 Delivery O2 Flow Rate FiO2 04/08/17 15:08 64 18 101/56 (71) 96 Room Air 04/08/17 13:32 69 18 114/62 (79) 97 Nasal Cannula 2.00 04/08/17 11:09 18 96 Room Air 04/08/17 11:09 97 Room Air 04/08/17 10:11 75 18 95 Room Air 04/08/17 10:10 99.0 73 18 124/63 (83) 96 Room Air Physical Exam GENERAL: This is a well-nourished, well-developed patient, in no apparent distress. SKIN: No rashes, ecchymoses or lesions. Cool and dry. HEAD: Atraumatic. Normocephalic. No temporal or scalp tenderness. EYES: Pupils equal round and reactive. Extraocular motions intact. No scleral icterus. No injection or drainage. ENT: Nose without bleeding, purulent drainage or septal hematoma. Throat without erythema, tonsillar hypertrophy or exudate. Uvula midline. Airway patent. NECK: Trachea midline. No JVD or lymphadenopathy. Supple, nontender, no meningeal signs. CARDIOVASCULAR: Regular rate and rhythm without murmurs, gallops, or rubs. RESPIRATORY: Diminished, faint ronchi. + cough, sputum brown GASTROINTESTINAL: Abdomen soft, non-tender, nondistended. No hepato-splenomegaly , or palpable masses. No guarding. MUSCULOSKELETAL: Right foot with chronic ulcer to plantar area great toe, fibrous tissue noted, no exudate, no odor. Right pedal edema trace, pedal pulses 2+. No other joint abnormality. NEUROLOGICAL: Awake, alert, oriented x 3. No focal deficits. Laboratory Laboratory Tests Test 04/08/17 11:05 04/08/17 12:57 White Blood Count 16.6 Red Blood Count 3.60 Hemoglobin 11.2 Hematocrit 33.4 Mean Corpuscular Volume 92.7 Mean Corpuscular Hemoglobin 31.0 Mean Corpuscular Hemoglobin Concent 33.5 Red Cell Distribution Width 13.9 Platelet Count 139 Mean Platelet Volume 10.3 Neutrophils (%) (Auto) 85.4 Lymphocytes (%) (Auto) 5.7 Monocytes (%) (Auto) 6.6 Eosinophils (%) (Auto) 2.1 Basophils (%) (Auto) 0.2 Neutrophils # (Auto) 14.2 Lymphocytes # (Auto) 0.9 Monocytes # (Auto) 1.1 Eosinophils # (Auto) 0.3 Basophils # (Auto) 0.0 CBC Comment DIFF FINAL Differential Comment Blood Urea Nitrogen 36 Creatinine 1.49 Random Glucose 167 Calcium Level 8.2 Sodium Level 136 Potassium Level 3.8 Chloride Level 101 Carbon Dioxide Level 25.8 Anion Gap 9 Estimat Glomerular Filtration Rate 45 Troponin I LESS THAN 0.02 B-Type Natriuretic Peptide 415 Lactic Acid Level 1.3 Date/Time Source Procedure Growth Status 04/08/17 11:05 Blood Peripheral Aerobic Blood Culture Pending Received 04/08/17 11:05 Blood Peripheral Anaerobic Blood Culture Pending Received (Jessa Esteban) Result Diagram: 04/08/17 1105 04/08/17 1105 Imaging Last Impressions Chest X-Ray 04/08/17 1101 Signed Impressions: Service Date/Time: Saturday, April 08, 2017 11:13 - CONCLUSION: Mild interstitial opacity in the right midlung zone with Edita B-lines on the right. These findings favor asymmetric pulmonary edema as the cause. The right midlung zone changes could also be related to infection. There are trace bilateral pleural effusions. Ronnell Fernandes MD (Jessa Esteban) Caprini VTE Risk Assessment Caprini VTE Risk Assessment: Mod/High Risk (score >= 2) Caprini Risk Assessment Model Point Value = 1 Point Value = 2 Point Value = 3 Point Value = 5 Age 41-60 Minor surgery BMI > 25 kg/m2 Swollen legs Varicose veins or History of unexplained or recurrent spontaneous Oral contraceptives or hormone replacement Sepsis (< 1 month) Serious lung disease, including pneumonia (< 1 month) Abnormal pulmonary function Acute myocardial infarction Congestive heart failure (< 1 month) History of inflammatory bowel disease Medical patient at bed rest Age 61-74 Arthroscopic surgery Major open surgery (> 45 min) Laparoscopic surgery (> 45 min) Malignancy Confined to bed (> 72 hours) Immobilizing plaster cast Central venous access Age >= 75 History of VTE Family history of VTE Factor V Leiden Prothrombin [id number] Lupus anticoagulant Anticardiolipin antibodies Elevated serum homocysteine Heparin-induced thrombocytopenia Other congenital or acquired thrombophilia Stroke (< 1 month) Elective arthroplasty Hip, pelvis, or leg fracture Acute spinal cord injury (< 1 month) Prophylaxis Regimen Total Risk Factor Score Risk Level Prophylaxis Regimen 0-1 Low Early ambulation 2 Moderate Order ONE of the following: *Sequential Compression Device (SCD) *Heparin 5000 units SQ BID 3-4 Higher Order ONE of the following medications: *Heparin 5000 units SQ TID *Enoxaparin/Lovenox 40 mg SQ daily (WT < 150 kg, CrCl > 30 mL/min) *Enoxaparin/Lovenox 30 mg SQ daily (WT < 150 kg, CrCl > 10-29 mL/min) *Enoxaparin/Lovenox 30 mg SQ BID (WT < 150 kg, CrCl > 30 mL/min) AND/OR *Sequential Compression Device (SCD) 5 or more Highest Order ONE of the following medications: *Heparin 5000 units SQ TID (Preferred with Epidurals) *Enoxaparin/Lovenox 40 mg SQ daily (WT < 150 kg, CrCl > 30 mL/min) *Enoxaparin/Lovenox 30 mg SQ daily (WT < 150 kg, CrCl > 10-29 mL/min) *Enoxaparin/Lovenox 30 mg SQ BID (WT < 150 kg, CrCl > 30 mL/min) AND *Sequential Compression Device (SCD) (Jessa Esteban) Assessment and Plan Problem List: (1) Pulmonary aspergillosis ICD Codes: B44.1 - Other pulmonary aspergillosis Status: Acute (2) Respiratory distress ICD Codes: R06.00 - Dyspnea, unspecified Status: Acute (3) Pneumonia ICD Codes: J18.9 - Pneumonia, unspecified organism Status: Acute (4) Diabetes 1.5, managed as type 2 ICD Codes: E10.9 - Type 1 diabetes mellitus without complications Status: Chronic (5) Chronic ulcer of right foot ICD Codes: L97.519 - Non-pressure chronic ulcer of other part of right foot with unspecified severity Status: Chronic (6) Neuropathy ICD Codes: G62.9 - Polyneuropathy, unspecified Status: Chronic (7) Coronary artery disease ICD Codes: I25.10 - Atherosclerotic heart disease of [place] coronary artery without angina pectoris Status: Chronic (8) Renal insufficiency ICD Codes: N28.9 - Disorder of kidney and ureter, unspecified (9) Leukocytosis ICD Codes: D72.829 - Elevated white blood cell count, unspecified Status: Acute (10) Asthma ICD Codes: J45.909 - Unspecified asthma, uncomplicated Status: Chronic (11) COPD (chronic obstructive pulmonary disease) ICD Codes: J44.9 - Chronic obstructive pulmonary disease, unspecified Status: Chronic Assessment and Plan Admit to Dr. Tom 81-year-old elderly male with history of COPD, bronchitis, asthma. Presented to emergency room with increasing shortness of breath, reported hypoxia at home , recent diagnosis of pulmonary aspergillosis. Pulmonary aspergillosis COPD Asthma -Consult pulmonology for evaluation -Consult infectious disease for assistance with antibiotic management -We will obtain a sputum culture -Continue with Zithromax for now, patient has multiple allergies -DuoNeb's 4 times a day as needed -Continue with by mouth steroids -Continue Symbicort -continue with supplemental oxygen Chronic kidney disease -Monitor renal function closely -Continue with cautious hydration Type 2 diabetes -Accu-Cheks before meals and at bedtime with insulin therapy Chronic right great toe ulceration Peripheral neuropathy -Consult wound care -Continue with ortho shoe Hypertension -Continue home meds CAD -Continue home meds Home medications reviewed, initiated as indicated Heparin for DVT prophylaxis Plan of care discussed with the patient, attending and registered nurse. Further management of the patient will be dependent on the hospital course This patient was seen by myself and Dr. Tom, this H&P is written on his behalf (Jessa Esteban) Physician Certification 2 Midnight Certification Type: Admission for Inpatient Services Order for Inpatient Services The services are ordered in accordance with Medicare regulations or non- Medicare payer requirements, as applicable. In the case of services not specified as inpatient-only, they are appropriately provided as inpatient services in accordance with the 2-midnight benchmark. Estimated LOS (days): 2 2 days is the estimated time the patient will need to remain in the hospital, assuming treatment plan goals are met and no additional complications. Post-Hospital Plan: Home Health (Jessa Esteban) Problem Qualifiers (1) Pneumonia: Qualified Codes: J18.1 - Lobar pneumonia, unspecified organism (2) Chronic ulcer of right foot: Qualified Codes: L97.512 - Non-pressure chronic ulcer of other part of right foot with fat layer exposed (3) Coronary artery disease: Qualified Codes: I25.10 - Atherosclerotic heart disease of [place] coronary artery without angina pectoris (4) Leukocytosis: Qualified Codes: D72.829 - Elevated white blood cell count, unspecified (5) Asthma: Qualified Codes: J45.909 - Unspecified asthma, uncomplicated (6) COPD (chronic obstructive pulmonary disease): Qualified Codes: J44.0 - Chronic obstructive pulmonary disease with acute lower respiratory infection Jessa Esteban Apr 08, 2017 15:37 Indira Tom MD Apr 09, 2017 09:23
[2017-04-08] MEDS ORDERED: GLUCAGON 1 MG/ML VIAL OTHER PRN (16:00)
[2017-04-08] MEDS: INSULIN ASPART SUPPLEMENTAL SCALE SQ SCH ×2 (16:00→21:00)
[2017-04-08] MEDS ORDERED: DEXTROSE 50% IN WATER 50 ML VIAL(D50) IV PRN (16:00)
--- NOTE | 2017-04-08 17:56 | HHI.PR ---
Objective Objective Results - Vital Signs Date Time Temp Pulse Resp B/P (MAP) Pulse Ox O2 Delivery O2 Flow Rate FiO2 04/08/17 16:00 98.2 75 19 114/50 (71) 93 04/08/17 15:08 64 18 101/56 (71) 96 Room Air 04/08/17 13:32 69 18 114/62 (79) 97 Nasal Cannula 2.00 04/08/17 11:09 18 96 Room Air 04/08/17 11:09 97 Room Air 04/08/17 10:11 75 18 95 Room Air 04/08/17 10:10 99.0 73 18 124/63 (83) 96 Room Air Result Diagram: 04/08/17 1105 04/08/17 1105 Imaging Last Impressions Chest X-Ray 04/08/17 1101 Signed Impressions: Service Date/Time: Saturday, April 08, 2017 11:13 - CONCLUSION: Mild interstitial opacity in the right midlung zone with Edita B-lines on the right. These findings favor asymmetric pulmonary edema as the cause. The right midlung zone changes could also be related to infection. There are trace bilateral pleural effusions. Ronnell Fernandes MD Other Results Laboratory Tests Test 04/08/17 11:05 04/08/17 12:57 White Blood Count 16.6 Red Blood Count 3.60 Hemoglobin 11.2 Hematocrit 33.4 Mean Corpuscular Volume 92.7 Mean Corpuscular Hemoglobin 31.0 Mean Corpuscular Hemoglobin Concent 33.5 Red Cell Distribution Width 13.9 Platelet Count 139 Mean Platelet Volume 10.3 Neutrophils (%) (Auto) 85.4 Lymphocytes (%) (Auto) 5.7 Monocytes (%) (Auto) 6.6 Eosinophils (%) (Auto) 2.1 Basophils (%) (Auto) 0.2 Neutrophils # (Auto) 14.2 Lymphocytes # (Auto) 0.9 Monocytes # (Auto) 1.1 Eosinophils # (Auto) 0.3 Basophils # (Auto) 0.0 CBC Comment DIFF FINAL Differential Comment Blood Urea Nitrogen 36 Creatinine 1.49 Random Glucose 167 Calcium Level 8.2 Sodium Level 136 Potassium Level 3.8 Chloride Level 101 Carbon Dioxide Level 25.8 Anion Gap 9 Estimat Glomerular Filtration Rate 45 Troponin I LESS THAN 0.02 B-Type Natriuretic Peptide 415 Lactic Acid Level 1.3 Date/Time Source Procedure Growth Status 04/08/17 11:05 Blood Peripheral Aerobic Blood Culture Pending Received 04/08/17 11:05 Blood Peripheral Anaerobic Blood Culture Pending Received 04/08/17 17:05 Sputum Expectorated Sputum Fungal Smear Pending Received 04/08/17 17:05 Sputum Expectorated Sputum Fungal Culture Pending Received Physical Exam Physical Exam pt is seen & examined d/w PT d/w Jessa possible Pneumonia hx asthma hx aspergillosis multipple drug allergies DM ch R foot ulcer see orders will f/u Indira Tom MD Apr 08, 2017 17:56
[2017-04-08] MEDS: GABAPENTIN 100 MG CAP PO SCH (18:09)
--- NOTE | 2017-04-08 19:39 | PD.ID.CON ---
History of Present Illness Service ID Consult Requested By Dr Tom Reason for Consult aspergillosis Primary Care Physician Germán Monzon MD Diagnoses: History of Present Illness Pt 's history obtained thru dgtr -in-law who is a nurse 81 yo tobacco positive , quit > 20 yrs ago developped worsening SOB x months to years He went to allergologist for asthma treatment , he gets Rx 'd with intermittent systemic sterroids He developped chronic productive cough He has spuitum culture done @ Dr Bishop 's office and his sputum grew Aspergillaus and also serologies showe aspergillus antibodies He was started on Itraconazole He has fevers. chills x 1 week, low grade No weight loss He uses NC O2 @ home PRN with increasing use lately He presented to the hospital with SOB and his CXR showed interstitial opacity in the right midlung zone He has no fever on presentation, but WBC is 16K + Past Family Social History Allergies: Coded Allergies: Sulfa (Sulfonamide Antibiotics) (Unverified Allergy, Severe, 03/29/17) cefepime (Unverified Allergy, Severe, 03/29/17) ceftaroline fosamil (Unverified Allergy, Severe, 03/29/17) ceftriaxone (Unverified Allergy, Severe, 03/29/17) chlorpheniramine (Unverified Allergy, Severe, "MAKES ME FEEL SICK, 03/29/17 ) diatrizoate meglumine (Unverified Allergy, Severe, 03/29/17) gadobenic acid (Unverified Allergy, Severe, 03/29/17) gadodiamide (Unverified Allergy, Severe, 03/29/17) gadoteridol (Unverified Allergy, Severe, 03/29/17) hydroxyzine (Unverified Allergy, Severe, 03/29/17) iodixanol (Unverified Allergy, Severe, 03/29/17) iohexol (Unverified Allergy, Severe, 03/29/17) levofloxacin (Unverified Allergy, Severe, 03/29/17) midazolam (Unverified Allergy, Severe, HURT ALL OVER, 03/29/17) penicillin G (Unverified Allergy, Severe, RASH,FEVER, 03/29/17) Uncoded Allergies: metopro (Allergy, Severe, 03/26/17) Past Medical History Coronary artery disease Stents Hypertension Hyperlipidemia Recent diagnosis of aspergillosis COPD Chronic bronchitis Asthma Type 2 diabetes Peripheral neuropathy Chronic right great toe ulceration, has been treated by male infertility specialist for the last 4 months Past Surgical History Cardiac catheter with stent and angioplasty Tonsillectomy CABG x 3 about 5 yrs ago Active Ordered Medications Medications where reviewed in EMR Antibiotics Include: david Family History Reviewed, non contributory Social History , lives with . Has grown child . Quit smoking 20 years, no substance abuse, no ETOH Physical Exam Vital Signs Vital Signs Date Time Temp Pulse Resp B/P (MAP) Pulse Ox O2 Delivery O2 Flow Rate FiO2 04/08/17 16:00 98.2 75 19 114/50 (71) 93 04/08/17 15:08 64 18 101/56 (71) 96 Room Air 04/08/17 13:32 69 18 114/62 (79) 97 Nasal Cannula 2.00 04/08/17 11:09 18 96 Room Air 04/08/17 11:09 97 Room Air 04/08/17 10:11 75 18 95 Room Air 04/08/17 10:10 99.0 73 18 124/63 (83) 96 Room Air Physical Exam CONSTITUTIONAL/GENERAL: This is an adequately nourished patient, in no apparent distress. TUBES/LINES/DRAINS: SKIN: No jaundice, rashes, or lesions. Skin temperature appropriate. Not diaphoretic. HEAD: Atraumatic. Normocephalic. EYES: Pupils equal and round and reactive. Extraocular motions intact. No scleral icterus. No injection or drainage. Fundi not examined. ENT: Hearing grossly normal. Nose without bleeding or purulent drainage. Throat without visible erythema, exudates, masses, or lesions. NECK: Trachea midline. Supple, nontender. CARDIOVASCULAR: Regular rate and rhythm without murmurs, gallops, or rubs. No JVD. Peripheral pulses symmetric. RESPIRATORY/CHEST: Symmetric, unlabored respirations. Clear to auscultation. Breath sounds equal bilaterally. No wheezes, rales, or rhonchi. GASTROINTESTINAL: Abdomen soft, non-tender, nondistended. No hepato-splenomegaly , or palpable masses. No guarding. Bowel sounds present. MUSCULOSKELETAL: Extremities without clubbing, cyanosis, or edema. No joint tenderness or effusion noted. No calf tenderness. No mottling or clubbing. LYMPHATICS: No palpable cervical or supraclavicular adenopathy. NEUROLOGICAL: Awake and alert. Motor and sensory grossly within normal limits. Follows commands. Clear speech. Moves all extremities. PSYCHIATRIC: No obvious anxiety/depression. no apparent hallucinations or other psychotic thought process. Laboratory Laboratory Tests Test 04/08/17 11:05 04/08/17 12:57 White Blood Count 16.6 Red Blood Count 3.60 Hemoglobin 11.2 Hematocrit 33.4 Mean Corpuscular Volume 92.7 Mean Corpuscular Hemoglobin 31.0 Mean Corpuscular Hemoglobin Concent 33.5 Red Cell Distribution Width 13.9 Platelet Count 139 Mean Platelet Volume 10.3 Neutrophils (%) (Auto) 85.4 Lymphocytes (%) (Auto) 5.7 Monocytes (%) (Auto) 6.6 Eosinophils (%) (Auto) 2.1 Basophils (%) (Auto) 0.2 Neutrophils # (Auto) 14.2 Lymphocytes # (Auto) 0.9 Monocytes # (Auto) 1.1 Eosinophils # (Auto) 0.3 Basophils # (Auto) 0.0 CBC Comment DIFF FINAL Differential Comment Blood Urea Nitrogen 36 Creatinine 1.49 Random Glucose 167 Calcium Level 8.2 Sodium Level 136 Potassium Level 3.8 Chloride Level 101 Carbon Dioxide Level 25.8 Anion Gap 9 Estimat Glomerular Filtration Rate 45 Troponin I LESS THAN 0.02 B-Type Natriuretic Peptide 415 Lactic Acid Level 1.3 Date/Time Source Procedure Growth Status 04/08/17 11:05 Blood Peripheral Aerobic Blood Culture Pending Received 04/08/17 11:05 Blood Peripheral Anaerobic Blood Culture Pending Received 04/08/17 17:05 Sputum Expectorated Sputum Fungal Smear Pending Received 04/08/17 17:05 Sputum Expectorated Sputum Fungal Culture Pending Received Result Diagram: 04/08/17 1105 04/08/17 1105 Imaging Last Impressions Chest X-Ray 04/08/17 1101 Signed Impressions: Service Date/Time: Saturday, April 08, 2017 11:13 - CONCLUSION: Mild interstitial opacity in the right midlung zone with Edita B-lines on the right. These findings favor asymmetric pulmonary edema as the cause. The right midlung zone changes could also be related to infection. There are trace bilateral pleural effusions. Ronnell Fernandes MD Assessment and Plan Assessment and Plan COPD , asthma , with worsning asthma exacerbations Aspergilla in the sputum BPAA vs invasive aspergillosis (less likelY) Atypical PNA - cont azythromycin - fu sputum clx Discussed Condition With pt and his dgtr in Vidya Garrido MD Apr 08, 2017 19:39
[2017-04-08] MEDS: RESP: ALBUTEROL 2.5 MG/IPRATROPIUM 0.5 MG NEB (PRN) NEB (20:11)
[2017-04-08] MEDS ORDERED: ITRA100C PO (20:56)
[2017-04-08] MEDS: DOCUSATE SODIUM 50 MG/SENNA 8.6 MG TAB PO SCH (21:00)
[2017-04-08] MEDS: SODIUM CHLORIDE 0.9% FLUSH 10 ML FLUSH IV FLUSH SCH (21:00)
--- NOTE | 2017-04-08 21:09 | MB ---
cc: NANCY GRIGGS DATE OF CONSULTATION 04/08/[address] Tom REASON FOR CONSULTATION Evaluate for shortness of breath and chronic bronchitis. HISTORY OF PRESENT ILLNESS Mr. Skinner is an 81-year-old male who has a longstanding history of asthma and chronic bronchitis. He was following with Dr. He and Dr. Kevin Reyna for the last 40 years or so. He recently saw Dr. Kevin Reyna and he had a sputum test done. 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 He was started on nitroconazole. He came to the hospital with worsening of his shortness of breath. He has occasional cough, small amount of sputum production, no fever or chills. No night sweats. He did notice some swelling in his legs. In the hospital, he had a workup done. His chest x-ray shows mild interstitial opacity right mid Edita B lines suggestive of pulmonary edema. His CBC showed WBC count 16.6, hemoglobin 11.2, hematocrit 33.4 MCV 92, platelet count 139, sodium 130, potassium 3.8, chloride 101, CO2 25, BUN 36, creatinine 1.49. PAST MEDICAL HISTORY 1. History of coronary artery disease status post coronary artery bypass graft 2. History of bronchial asthma, 3. Chronic bronchitis 4. Cancer of the prostate status post radiation treatment 5. History of recent callus surgery on the foot. MEDICATIONS Currently, 1. Flovent 0.4 mg 2. Zithromax 5 mg a day 3. aspirin 81 mg a day 4. Lisinopril 10 mg a day 5. Prednisone 1 mg a day, 6. Neurontin 100 mg three times a day 7. Albuterol/Atrovent ALLERGIES SULFA CEFEPIME CEFTRIAXONE CHLORPHENIRAMINE GADOBENIC ACID SOCIAL HISTORY Has history of smoking which he quit 20 years ago. No alcohol abuse. 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 FAMILY HISTORY He is . He has one son. REVIEW OF SYSTEMS Normally he is up, around and active. Weight is stable. No headache or dizziness. No seizure, stroke or epilepsy. PHYSICAL EXAMINATION GENERAL: A pleasant elderly male not in acute distress. VITAL SIGNS: Blood pressure 114/50, heart rate 75, respiration 19, temperature 98.2 HEENT: Pupils are equal and reactive. He has bilateral cataract surgery done. Oral mucosa and nasal mucosa normal. NECK: JVP not raised. CHEST: Equal bilaterally. He has basilar rales. CARDIOVASCULAR: S1, S2 normal. ABDOMEN: Benign. EXTREMITIES: 1+ pedal edema. FINANCIAL SERVICES AUDITOR: Alert and oriented times three. No focal deficit. IMPRESSION 1. Bronchial asthma. 2. Chronic bronchitis. 3. Likely developing CHF 4. History of aspergillosis 5. History of CA of the prostate. 6. Coronary artery disease Status post coronary artery bypass graft. PLAN I discussed with the patient. He will check his PFT pulmonary function study. Continue aerosol treatment, supplement his oxygen. ID is consulted. Further treatment will depend on the course in the hospital. Thank you, Dr. Tom, for this consultation. MD PORFIRIO Starkey/ /6:39 PM /8:50 PM MTDCooper
--- NOTE | 2017-04-08 21:25 | RADRPT ---
EXAM DATE/TIME: 04/08/2017 21:04 [place] COMPARISON: CHEST PA & LAT, April 08, 2017, 11:13. INDICATIONS : Pulmonary disease, dyspnea RADIATION DOSE: 9.41 CTDIvol (mGy) MEDICAL HISTORY : Cardiovascular disease. Pancreatitis. Diabetes mellitus type 1. SURGICAL HISTORY : CABG ENCOUNTER: Initial ACUITY: 1 day PAIN SCALE: 0/10 LOCATION: chest TECHNIQUE: Volumetric scanning of the chest was performed. Using automated exposure control and adjustment of t he mA and/or kV according to patient size, radiation dose was kept as low as reasonably achievable to obtain optimal diagnostic quality images. DICOM format image data is available electronically for r eview and comparison. Follow-up recommendations for detected pulmonary nodules are based at a minimum on nodule size and pa tient risk factors according to Fleischner Society Guidelines. FINDINGS: A central interstitial and alveolar infiltrate is seen of the right mid lung. There is streaky atelec tasis in both bases, right worse than left. Small to moderate right and small left pleural effusions are present. There are scattered mediastinal lymph nodes. Largest mediastinal lymph node is pretracheal in locatio n and measures 14 x 22 mm. No hilar lymphadenopathy demonstrated on these noncontrast images. Heart size within normal limits. Patient has had previous median sternotomy CONCLUSION: 1. There is an atypical appearing nonspecific pneumonia in the right midlung, most likely infectious or inflammatory. 2. Small to moderate right and small left pleural effusions. 3. Streaky atelectasis at both bases, right worse than left. 4. Upper limits of normal to mildly enlarged mediastinal lymph nodes. Ronnell Sheffield MD on April 08, 2017 at 21:20 Board Certified Radiologist. This report was verified electronically.
[2017-04-08] MEDS ORDERED: ITRACONAZOLE 100 MG CAP PO ONE (22:00)
[2017-04-08] MEDS: HEPARIN SODIUM - SQ 10,000 UNITS/ML VIAL SQ SCH (22:10)
[2017-04-08] MEDS: BUDESONIDE-FORMOTEROL 80/4.5 MCG INHALER INH SCH (22:20)
[2017-04-09] VITALS (9 sets, daily range): BP systolic 111–148; BP diastolic 54–65; PULSE 68–96; RESP 20–21; TEMP 98–100.2; O2SAT 92–97
[2017-04-09] MEDS: RESP: ALBUTEROL 2.5 MG/IPRATROPIUM 0.5 MG NEB (PRN) NEB ×3 (00:24→20:40)
[2017-04-09] MEDS: INSULIN ASPART SUPPLEMENTAL SCALE SQ SCH ×4 (06:11→21:16)
[2017-04-09 08:05] LABS: AUTOMATED NEUTROPHIL # 13.7 TH/MM3 (1.8-7.7); BASOPHIL % 0.1 % (0.0-2.0); EOSINOPHIL # 0.2 TH/MM3 (0-0.4); EOSINOPHIL % 0.9 % (0.0-4.0); HEMATOCRIT 34.7 % (39.0-51.0); HEMO FLAGS DIFF FINAL; LYMPH % 5.4 % (9.0-44.0); LYMPHOCYTE # 0.9 TH/MM3 (1.0-4.8); MEAN CORPUSCULAR HEMOGLOBIN 30.7 PG (27.0-34.0); MONO % 8.5 % (0.0-8.0); NEUT % 85.1 % (16.0-70.0); PLATELET COUNT 162 TH/MM3 (150-450); RED BLOOD COUNT 3.73 MIL/MM3 (4.50-5.90); WHITE BLOOD COUNT 16.1 TH/MM3 (4.0-11.0)
[2017-04-09] MEDS: DOCUSATE SODIUM 50 MG/SENNA 8.6 MG TAB PO SCH ×2 (08:38→21:01)
[2017-04-09] MEDS: LISINOPRIL 10 MG TAB PO SCH (08:38)
[2017-04-09] MEDS: ASPIRIN EC 81 MG TABEC PO SCH (08:38)
[2017-04-09] MEDS: GABAPENTIN 100 MG CAP PO SCH ×3 (08:39→17:20)
[2017-04-09] MEDS: HEPARIN SODIUM - SQ 10,000 UNITS/ML VIAL SQ SCH ×2 (08:39→21:01)
[2017-04-09] MEDS: predniSONE 1 MG TAB PO SCH (08:40)
[2017-04-09 08:41] LABS: BICARBONATE 22.8 MEQ/L (21.0-32.0)
[2017-04-09] MEDS: SODIUM CHLORIDE 0.9% FLUSH 10 ML FLUSH IV FLUSH SCH ×2 (08:41→21:01)
[2017-04-09] MEDS: BUDESONIDE-FORMOTEROL 80/4.5 MCG INHALER INH SCH ×2 (08:44→21:02)
[2017-04-09] MEDS: AZITHROMYCIN INJ 500 MG in SODIUM CHLOR 0.9% 250 ML INJ 250 ML IV SCH (12:44)
--- NOTE | 2017-04-09 13:35 | HHI.PR ---
Subjective History of Present Illness Still coughing a lot, producing brownish sputum No Fever or chills Denies chest pain No nausea or vomiting Good appetite No melena or bright red blood per rectum Offers no other complaints Vitals/Results Vital Signs Vital Signs Date Time Temp Pulse Resp B/P (MAP) Pulse Ox O2 Delivery O2 Flow Rate FiO2 04/09/17 08:00 98.5 79 20 111/54 (73) 96 04/09/17 07:15 Room Air 04/09/17 05:47 92 Nasal Cannula 3.00 04/09/17 04:00 99.7 96 21 120/61 (80) 93 04/09/17 00:00 98.9 81 20 148/65 (92) 96 04/08/17 22:25 Nasal Cannula 3.00 04/08/17 20:14 93 Nasal Cannula 3.00 04/08/17 20:00 99.1 88 21 118/68 (85) 94 04/08/17 20:00 99.1 88 21 118/64 (82) 94 04/08/17 16:00 98.2 75 19 114/50 (71) 93 04/08/17 15:08 64 18 101/56 (71) 96 Room Air CBC/BMP: 04/09/17 0728 04/09/17 0728 Lab Results Laboratory Tests Test 04/09/17 07:28 White Blood Count 16.1 TH/MM3 Red Blood Count 3.73 MIL/MM3 Hemoglobin 11.5 GM/DL Hematocrit 34.7 % Mean Corpuscular Volume 93.0 FL Mean Corpuscular Hemoglobin 30.7 PG Mean Corpuscular Hemoglobin Concent 33.0 % Red Cell Distribution Width 14.0 % Platelet Count 162 TH/MM3 Mean Platelet Volume 10.5 FL Neutrophils (%) (Auto) 85.1 % Lymphocytes (%) (Auto) 5.4 % Monocytes (%) (Auto) 8.5 % Eosinophils (%) (Auto) 0.9 % Basophils (%) (Auto) 0.1 % Neutrophils # (Auto) 13.7 TH/MM3 Lymphocytes # (Auto) 0.9 TH/MM3 Monocytes # (Auto) 1.4 TH/MM3 Eosinophils # (Auto) 0.2 TH/MM3 Basophils # (Auto) 0.0 TH/MM3 CBC Comment DIFF FINAL Differential Comment Blood Urea Nitrogen 31 MG/DL Creatinine 1.43 MG/DL Random Glucose 155 MG/DL Calcium Level 8.1 MG/DL Sodium Level 138 MEQ/L Potassium Level 4.0 MEQ/L Chloride Level 105 MEQ/L Carbon Dioxide Level 22.8 MEQ/L Anion Gap 10 MEQ/L Estimat Glomerular Filtration Rate 47 ML/MIN Microbiology Microbiology 04/08/17 Gram Stain - Final, Resulted 04/08/17 Sputum Culture, Resulted Pending 04/08/17 Fungal Smear - Final, Resulted NO FUNGAL ELEMENTS SEEN. 04/08/17 Fungal Culture, Resulted Pending Physical Exam General General Appearance: No Acute Distress, Comfortable Appearance Remarks Elderly male resting in bed Eyes Eye Exam: Pupils Equal, Sclera White Ears & Nose Ears & Nose Exam: Nasal Mucosa [place] Throat Throat Exam: Oral Mucosa [place] & Moist Neck Neck Exam: Neck Supple, Trachea Midline Pulmonary Resp Exam: Breath Sounds Equal, No Distress, Rhonchi Cardiology CV Exam: Regular, Normal Sinus Rhythm Gastrointestinal/Abdomen GI Exam: Soft, Non-Tender, Bowel Sounds Present Musculoskeletal MS Remarks Chronic right big toe ulcer appears clean no drainage no pus Integumentary Skin Exam: Warm, Dry Extremeties Extremities Exam: No Edema, Pedal Pulses Palpable Neurologic Neuro Exam: Alert, Awake, Oriented, Speech Clear, Moving All Extremities Psychiatric Psych Exam: Appropriate Responses VTE Prophylaxis VTE Prophylaxis Meds: Heparin Assessment/Plan Assessment/Plan Pulmonary aspergillosis COPD Asthma -sputum culture [p] -Continue with Zithromax for now, patient has multiple allergies -ID input appreciated -CT chest done, results noted -DuoNeb's 4 times a day as needed -Continue with by mouth steroids -Continue Symbicort -continue with supplemental oxygen -MULTIPLE DRUG ALLERGIES. Chronic kidney disease -Monitor renal function closely -Continue with cautious hydration Type 2 diabetes -Accu-Cheks before meals and at bedtime with insulin therapy Chronic right great toe ulceration Peripheral neuropathy -Consult wound care -Continue with ortho shoe Hypertension -Continue home meds CAD -s/p stenting in past. -Continue home meds History of prostate cancer, status post radiation treatment Currently in remission. Home medications reviewed, initiated as indicated Heparin for DVT prophylaxis Discussed patient in detail Disposition [id number] Yasmin Will follow Indira Tom MD Apr 09, 2017 13:35
--- NOTE | 2017-04-09 18:23 | HHI.PR ---
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 Has SOB, wheezing Cough with sp No Fever Objective Vital Signs Vital Signs Date Time Temp Pulse Resp B/P (MAP) Pulse Ox O2 Delivery O2 Flow Rate FiO2 04/09/17 12:00 98.0 68 20 126/58 (80) 96 04/09/17 08:30 78 04/09/17 08:00 98.5 79 20 111/54 (73) 96 04/09/17 07:15 Room Air 04/09/17 05:47 92 Nasal Cannula 3.00 04/09/17 04:00 99.7 96 21 120/61 (80) 93 04/09/17 00:00 98.9 81 20 148/65 (92) 96 04/08/17 22:25 Nasal Cannula 3.00 04/08/17 20:14 93 Nasal Cannula 3.00 04/08/17 20:00 99.1 88 21 118/68 (85) 94 04/08/17 20:00 99.1 88 21 118/64 (82) 94 I/O 04/08/17 04/08/17 04/08/17 04/09/17 04/09/17 04/09/17 06:59 14:59 22:59 06:59 14:59 22:59 Intake Total 560 ml Output Total 850 ml Balance -290 ml Intake Oral 560 ml Output Urine Total 850 ml # Bowel Movements 0 Result Diagram: 04/09/1772704/09/17727 Objective Remarks GENERAL: Elderly male mild sob SKIN: Warm and dry. HEAD: Normocephalic. EYES: No scleral icterus. No injection or drainage. NECK: Supple, trachea midline. No JVD or lymphadenopathy. CARDIOVASCULAR: Regular rate and rhythm without murmurs, gallops, or rubs. RESPIRATORY: Breath sounds equal bilaterally. No accessory muscle use. Exp rhonchi GASTROINTESTINAL: Abdomen soft, non-tender, nondistended. MUSCULOSKELETAL: No cyanosis, or edema. BACK: Nontender without obvious deformity. No CVA tenderness. A/P Assessment and Plan Bronchial asthma exac Ch. Bronchitis Aspergillous in sp H/O ca prostate CAD PLAN: Aerosol nebs Solumedrol 40 mg q 8 hrs Cont Abx Supplement 02 Check sputum culture Davis Valentino MD Apr 09, 2017 18:23
--- NOTE | 2017-04-09 18:52 | EKG ---
Date Performed: 04/08/2017 Time Performed: 09:57:15 PTAGE: 81 years EKG: Sinus rhythm WITH OCCASIONAL SUPRAVENTRICULAR PREMATURE COMPLEXES BORDERLINE ECG Compared to prior tracing no sig nificant change DOCTOR: Bruce Whelan Interpretating Date/Time 04/09/2017 18:50:55
[2017-04-09] MEDS: TAMSULOSIN HCL 0.4 MG CAP PO SCH (21:01)
[2017-04-09] MEDS: FAMOTIDINE 20 MG TAB PO SCH (21:01)
[2017-04-09] MEDS: methylPREDNISolone SOD SUCC 40 MG/1 ML VIAL IV PUSH SCH (22:44)
[2017-04-10] VITALS (8 sets, daily range): BP systolic 106–136; BP diastolic 53–61; PULSE 60–82; RESP 20–22; TEMP 97.2–99.4; O2SAT 93–97
[2017-04-10] MEDS: methylPREDNISolone SOD SUCC 40 MG/1 ML VIAL IV PUSH SCH ×3 (05:07→20:44)
[2017-04-10] MEDS: RESP: ALBUTEROL 2.5 MG/IPRATROPIUM 0.5 MG NEB (PRN) NEB (05:30)
[2017-04-10] MEDS: INSULIN ASPART SUPPLEMENTAL SCALE SQ SCH ×4 (06:13→20:48)
[2017-04-10] MEDS: DOCUSATE SODIUM 50 MG/SENNA 8.6 MG TAB PO SCH ×2 (08:01→20:45)
[2017-04-10] MEDS: HEPARIN SODIUM - SQ 10,000 UNITS/ML VIAL SQ SCH ×2 (08:01→20:45)
[2017-04-10] MEDS: SODIUM CHLORIDE 0.9% FLUSH 10 ML FLUSH IV FLUSH SCH ×2 (08:01→20:44)
[2017-04-10] MEDS: ASPIRIN EC 81 MG TABEC PO SCH (08:01)
[2017-04-10] MEDS: GABAPENTIN 100 MG CAP PO SCH ×3 (08:02→17:00)
[2017-04-10] MEDS: predniSONE 1 MG TAB PO SCH (08:02)
[2017-04-10] MEDS: BUDESONIDE-FORMOTEROL 80/4.5 MCG INHALER INH SCH ×2 (08:07→20:45)
[2017-04-10] MEDS: LISINOPRIL 10 MG TAB PO SCH (08:10)
[2017-04-10 10:37] LABS: HEMATOCRIT 35.5 % (39.0-51.0); MEAN CELL VOLUME 94.3 FL (80.0-100.0); MEAN CORPUSCULAR HEMOGLOBIN 31.4 PG (27.0-34.0); MEAN CORPUSCULAR HGB CONC 33.3 % (32.0-36.0); PLATELET COUNT 160 TH/MM3 (150-450); RED BLOOD COUNT 3.77 MIL/MM3 (4.50-5.90); RED CELL DISTRIBUTION WIDTH 14.3 % (11.6-17.2); REVIEW FLAG FINAL; WHITE BLOOD COUNT 11.8 TH/MM3 (4.0-11.0)
[2017-04-10] MEDS ORDERED: DEXTROSE 50% IN WATER 50 ML VIAL(D50) IV PRN (12:15)
[2017-04-10] MEDS ORDERED: GLUCAGON 1 MG/ML VIAL OTHER PRN (12:15)
[2017-04-10] MEDS: AZITHROMYCIN INJ 500 MG in SODIUM CHLOR 0.9% 250 ML INJ 250 ML IV SCH (12:43)
--- NOTE | 2017-04-10 15:48 | HHI.PR ---
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 Has SOB, wheezing Cough with sp No Fever BS went high, on insulin has diarrhoea Objective Vital Signs Vital Signs Date Time Temp Pulse Resp B/P (MAP) Pulse Ox O2 Delivery O2 Flow Rate FiO2 04/10/17 12:00 97.5 71 20 120/57 (78) 94 04/10/17 08:20 60 04/10/17 08:00 97.3 71 20 106/53 (70) 97 04/10/17 08:00 97.3 67 20 106/53 (70) 97 04/10/17 07:15 Nasal Cannula 3.50 04/10/17 04:00 97.8 73 20 112/59 (76) 94 04/10/17 00:00 99.4 82 22 122/58 (79) 93 04/09/17 20:41 95 Nasal Cannula 4.00 04/09/17 20:00 Nasal Cannula 3.00 04/09/17 20:00 72 04/09/17 20:00 100.2 76 20 145/61 (89) 93 04/09/17 16:00 98.2 77 20 128/57 (80) 97 I/O 04/09/17 04/09/17 04/09/17 04/10/17 04/10/17 04/10/17 06:59 14:59 22:59 06:59 14:59 22:59 Intake Total 560 ml 720 ml 240 ml Output Total 850 ml 425 ml 700 ml Balance -290 ml 295 ml -460 ml Intake Oral 560 ml 720 ml 240 ml Output Urine Total 850 ml 425 ml 700 ml # Bowel Movements 0 Result Diagram: 04/10/17 1000 04/10/17 1330 Objective Remarks GENERAL: Elderly male mild sob SKIN: Warm and dry. HEAD: Normocephalic. EYES: No scleral icterus. No injection or drainage. NECK: Supple, trachea midline. No JVD or lymphadenopathy. CARDIOVASCULAR: Regular rate and rhythm without murmurs, gallops, or rubs. RESPIRATORY: Breath sounds equal bilaterally. No accessory muscle use. Exp rhonchi GASTROINTESTINAL: Abdomen soft, non-tender, nondistended. MUSCULOSKELETAL: No cyanosis, or edema. BACK: Nontender without obvious deformity. No CVA tenderness. A/P Assessment and Plan Bronchial asthma exac Ch. Bronchitis Aspergillous in sp H/O ca prostate CAD PLAN: Aerosol nebs Decrease Solumedrol 40 mg q128 hrs Cont Abx Supplement 02 Check sputum culture DW . Davis Valentino MD Apr 10, 2017 15:48
--- NOTE | 2017-04-10 16:12 | HHI.PR ---
Subjective History of Present Illness Cough is much better Breathing is okay Blood sugars are running high Also reports swelling in the legs No Fever or chills Denies chest pain No nausea or vomiting Good appetite No melena or bright red blood per rectum Offers no other complaints Vitals/Results Vital Signs Vital Signs Date Time Temp Pulse Resp B/P (MAP) Pulse Ox O2 Delivery O2 Flow Rate FiO2 04/10/17 12:00 97.5 71 20 120/57 (78) 94 04/10/17 08:20 60 04/10/17 08:00 97.3 71 20 106/53 (70) 97 04/10/17 08:00 97.3 67 20 106/53 (70) 97 04/10/17 07:15 Nasal Cannula 3.50 04/10/17 04:00 97.8 73 20 112/59 (76) 94 04/10/17 00:00 99.4 82 22 122/58 (79) 93 04/09/17 20:41 95 Nasal Cannula 4.00 04/09/17 20:00 Nasal Cannula 3.00 04/09/17 20:00 72 04/09/17 20:00 100.2 76 20 145/61 (89) 93 CBC/BMP: 04/10/17 1000 04/10/17 1330 Lab Results Laboratory Tests Test 04/10/17 10:00 04/10/17 13:30 White Blood Count 11.8 TH/MM3 Red Blood Count 3.77 MIL/MM3 Hemoglobin 11.8 GM/DL Hematocrit 35.5 % Mean Corpuscular Volume 94.3 FL Mean Corpuscular Hemoglobin 31.4 PG Mean Corpuscular Hemoglobin Concent 33.3 % Red Cell Distribution Width 14.3 % Platelet Count 160 TH/MM3 Mean Platelet Volume 10.4 FL Random Glucose 556 MG/DL Physical Exam General General Appearance: No Acute Distress, Comfortable Appearance Remarks Elderly male resting in bed Eyes Eye Exam: Pupils Equal, Sclera White Ears & Nose Ears & Nose Exam: Nasal Mucosa [place] Throat Throat Exam: Oral Mucosa [place] & Moist Neck Neck Exam: Neck Supple, Trachea Midline Pulmonary Resp Exam: Breath Sounds Equal, No Distress, Rhonchi Cardiology CV Exam: Regular, Normal Sinus Rhythm Gastrointestinal/Abdomen GI Exam: Soft, Non-Tender, Bowel Sounds Present Musculoskeletal MS Remarks Chronic right big toe ulcer appears clean no drainage no pus Integumentary Skin Exam: Warm, Dry Extremeties Extremities Exam: Pedal Pulses Palpable Extremeties Remarks Bilateral pedal edema 2+ pitting type Neurologic Neuro Exam: Alert, Awake, Oriented, Speech Clear, Moving All Extremities Psychiatric Psych Exam: Appropriate Responses VTE Prophylaxis VTE Prophylaxis Meds: Heparin Assessment/Plan Assessment/Plan Pulmonary aspergillosis COPD Asthma -sputum culture normal flaco -Continue with Zithromax -CT chest done, results noted -DuoNeb's 4 times a day as needed -Taper steroids -Continue Symbicort -continue with supplemental oxygen -Start IV Lasix 20 mm of due to lower with potassium replacement -Check 2-D echocardiogram to assess LV function. -Fluid restriction -MULTIPLE DRUG ALLERGIES. Chronic kidney disease -Monitor renal function closely -Continue with cautious hydration Type 2 diabetes -Diabetic diet -Resume insulin -Accu-Cheks before meals and at bedtime with high-dose insulin therapy -Controlled blood sugar Chronic right great toe ulceration Peripheral neuropathy -Continue with ortho shoe Hypertension -Continue home meds CAD -s/p stenting in past. -Continue home meds History of prostate cancer, status post radiation treatment Currently in remission. Heparin for DVT prophylaxis Discussed patient Discussed with STEPHAN Hyatt labs Will follow Indira Tom MD Apr 10, 2017 16:12
[2017-04-10] MEDS: FUROSEMIDE 20 MG/2 ML VIAL IV PUSH SCH (18:23)
[2017-04-10] MEDS: TAMSULOSIN HCL 0.4 MG CAP PO SCH (20:43)
[2017-04-10] MEDS: POTASSIUM CHLORIDE 10 MEQ CONTROLLED RELEASE TAB PO SCH (20:43)
[2017-04-10] MEDS: FAMOTIDINE 20 MG TAB PO SCH (20:43)
[2017-04-10] MEDS: INSULIN DETEMIR 100 UNITS/ML VIAL SQ SCH (20:49)
[2017-04-11] VITALS (10 sets, daily range): BP systolic 128–177; BP diastolic 56–76; PULSE 56–92; RESP 16–20; TEMP 97.3–97.8; O2SAT 94–98
[2017-04-11] MEDS: RESP: ALBUTEROL 2.5 MG/IPRATROPIUM 0.5 MG NEB (PRN) NEB ×2 (04:22→22:24)
[2017-04-11] MEDS: INSULIN ASPART SUPPLEMENTAL SCALE SQ SCH ×4 (05:50→21:28)
[2017-04-11 06:13] LABS: HEMATOCRIT 34.3 % (39.0-51.0); MEAN CELL VOLUME 92.1 FL (80.0-100.0); MEAN CORPUSCULAR HEMOGLOBIN 31.3 PG (27.0-34.0); PLATELET COUNT 171 TH/MM3 (150-450); RED BLOOD COUNT 3.72 MIL/MM3 (4.50-5.90); RED CELL DISTRIBUTION WIDTH 13.6 % (11.6-17.2); REVIEW FLAG FINAL; WHITE BLOOD COUNT 11.4 TH/MM3 (4.0-11.0)
[2017-04-11 06:59] LABS: BICARBONATE 21.6 MEQ/L (21.0-32.0); POTASSIUM 4.2 MEQ/L (3.5-5.1)
[2017-04-11] MEDS: INSULIN DETEMIR 100 UNITS/ML VIAL SQ SCH ×2 (09:00→21:29)
[2017-04-11] MEDS: DOCUSATE SODIUM 50 MG/SENNA 8.6 MG TAB PO SCH ×2 (09:00→21:30)
[2017-04-11] MEDS: BUDESONIDE-FORMOTEROL 80/4.5 MCG INHALER INH SCH ×2 (09:00→21:31)
[2017-04-11] MEDS: FUROSEMIDE 20 MG/2 ML VIAL IV PUSH SCH ×2 (09:05→18:12)
[2017-04-11] MEDS: POTASSIUM CHLORIDE 10 MEQ CONTROLLED RELEASE TAB PO SCH ×2 (09:06→21:30)
[2017-04-11] MEDS: methylPREDNISolone SOD SUCC 40 MG/1 ML VIAL IV PUSH SCH (09:06)
[2017-04-11] MEDS: ASPIRIN EC 81 MG TABEC PO SCH (09:06)
[2017-04-11] MEDS: GABAPENTIN 100 MG CAP PO SCH ×3 (09:06→18:11)
[2017-04-11] MEDS: LISINOPRIL 10 MG TAB PO SCH (09:06)
[2017-04-11] MEDS: HEPARIN SODIUM - SQ 10,000 UNITS/ML VIAL SQ SCH ×2 (09:07→21:30)
[2017-04-11] MEDS: SODIUM CHLORIDE 0.9% FLUSH 10 ML FLUSH IV FLUSH SCH ×2 (09:08→21:31)
--- NOTE | 2017-04-11 10:44 | HHI.PR ---
Subjective Subjective Remarks Right toe wounds open to air, has been in outpatient treatment for several months Has outpatient treatment orders, Afebrile Shortness of breath, more pronounced today patient states Coughing up brown sputum Occasional cough (Charmaine Dey) Review of Systems Constitutional Constitutional: Fatigue, Weakness Constitutional Remarks 10 point review obtained positives noted More weak today (Charmaine Dey) Pulmonary Respiratory: Coughing, Shortness of Breath (Charmaine Dey) Musculoskeletal MS: Weakness (Charmaine Dey) Integumentary Skin: Wounds (right posterior great toe) (Charmaine Dey) Psychiatric Psychiatric: Normal Mood, Anxiety (over multiple current conditions) (Charmaine Dey) Vitals/Results Vital Signs Vital Signs Date Time Temp Pulse Resp B/P (MAP) Pulse Ox O2 Delivery O2 Flow Rate FiO2 04/11/17 08:04 97.3 92 19 177/76 (109) 98 04/11/17 04:25 95 21 04/11/17 04:00 97.4 60 20 130/62 (84) 95 04/11/17 03:46 Room Air 04/11/17 00:00 97.8 70 20 132/66 (88) 97 04/11/17 00:00 Room Air 04/10/17 20:00 97.2 72 20 136/61 (86) 96 04/10/17 20:00 Nasal Cannula 3.00 04/10/17 19:51 71 04/10/17 16:00 97.4 68 20 128/60 (82) 95 04/10/17 12:00 97.5 71 20 120/57 (78) 94 (Charmaine Dey) CBC/BMP: 04/11/17 0528 04/11/17 0528 Lab Results Laboratory Tests Test 04/10/17 13:30 04/11/17 05:28 Random Glucose 556 MG/DL 249 MG/DL White Blood Count 11.4 TH/MM3 Red Blood Count 3.72 MIL/MM3 Hemoglobin 11.7 GM/DL Hematocrit 34.3 % Mean Corpuscular Volume 92.1 FL Mean Corpuscular Hemoglobin 31.3 PG Mean Corpuscular Hemoglobin Concent 34.0 % Red Cell Distribution Width 13.6 % Platelet Count 171 TH/MM3 Mean Platelet Volume 10.7 FL Blood Urea Nitrogen 61 MG/DL Creatinine 1.38 MG/DL Calcium Level 8.2 MG/DL Sodium Level 130 MEQ/L Potassium Level 4.2 MEQ/L Chloride Level 98 MEQ/L Carbon Dioxide Level 21.6 MEQ/L Anion Gap 10 MEQ/L Estimat Glomerular Filtration Rate 49 ML/MIN Imaging Remarks Last Impressions Chest X-Ray 04/08/17 1101 Signed Impressions: Service Date/Time: Saturday, April 08, 2017 11:13 - CONCLUSION: Mild interstitial opacity in the right midlung zone with Edita B-lines on the right. These findings favor asymmetric pulmonary edema as the cause. The right midlung zone changes could also be related to infection. There are trace bilateral pleural effusions. Ronnell Fernandes MD Chest CT 04/08/17 0000 Signed Impressions: Service Date/Time: Saturday, April 08, 2017 21:04 - CONCLUSION: 1. There is an atypical appearing nonspecific pneumonia in the right midlung, most likely infectious or inflammatory. 2. Small to moderate right and small left pleural effusions. 3. Streaky atelectasis at both bases, right worse than left. 4. Upper limits of normal to mildly enlarged mediastinal lymph nodes. Ronnell Sheffield MD Current Medications Administered Medications Medications (Trade) Dose Ordered Sig/Will Route PRN Reason Start Time Stop Time Status Last Admin Dose Admin Sodium Chloride (NS Flush) 2 ml BID IV FLUSH 04/08/17 21:00 04/11/17 09:08 Senna/Docusate Sodium (Yana-Colace) 1 tab BID PO 04/08/17 21:00 04/10/17 08:01 Aspirin (Ecotrin Ec) 81 mg DAILY PO 04/09/17 09:00 04/11/17 09:06 Budesonide/ Formoterol Fumarate (Symbicort 80-4.5 Mcg Inh) 1 puff Q12HR INH 04/08/17 21:00 04/11/17 09:00 Gabapentin (Neurontin) 100 mg TID PO 04/08/17 18:00 04/11/17 09:06 Lisinopril (Prinivil) 10 mg DAILY PO 04/09/17 09:00 04/11/17 09:06 Prednisone (Deltasone) 1 mg DAILY PO 04/09/17 09:00 04/10/17 08:02 Tamsulosin HCl (Flomax) 0.4 mg HS PO 04/09/17 21:00 04/10/17 20:43 Albuterol/ Ipratropium (Duoneb Neb) 1 ampule QID NEB PRN NEB WHEEZING 04/08/17 13:45 04/11/17 04:22 Azithromycin 500 mg/Sodium Chloride 250 ml @ 250 mls/hr Q24H IV 04/09/17 12:00 04/10/17 12:43 Heparin Sodium (Porcine) (Heparin Inj) 5,000 units Q12HR SQ 04/08/17 21:00 04/11/17 09:07 Famotidine (Pepcid) 20 mg HS PO 04/09/17 21:00 04/10/17 20:43 Methylprednisolone Sodium Succinate (SoluMEDROL INJ) 40 mg Q12HR IV PUSH 04/10/17 21:00 04/11/17 09:06 Insulin Detemir (Levemir Inj) 15 units HS SQ 04/10/17 21:00 04/10/17 20:49 Insulin Aspart (NovoLOG SUPPLEMENTAL SCALE) 1 ACHS SLIDING SCALE SQ 04/10/17 16:00 04/11/17 05:50 Furosemide (Lasix Inj) 20 mg BID@09,18 IV PUSH 04/10/17 18:00 04/11/17 09:05 Potassium Chloride (KCl) 10 meq Q12HR PO 04/10/17 21:00 04/11/17 09:06 (Charmaine Dey) Physical Exam General General Appearance: No Acute Distress, Comfortable, Pale, Anxious (Charmaine DeyP) Eyes Eye Exam: Pupils Equal, Sclera White (Charmaine DeyP) Ears & Nose Ears & Nose Exam: Nasal Mucosa [place] (Charmaine DeyP) Throat Throat Exam: Oral Mucosa [place] & Moist (Charmaine DeyP) Neck Neck Exam: Neck Supple, Trachea Midline (Charmaine DeyP) Pulmonary Resp Exam: Breath Sounds Equal, No Distress, Rhonchi, Decreased Bases, Diminished Breath Sounds Resp Remarks Bibasilar rales (Charmaine Dey) Cardiology CV Exam: Regular, Normal Sinus Rhythm (Charmaine Dey) Gastrointestinal/Abdomen GI Exam: Soft, Non-Tender, Bowel Sounds Present GI Remarks Loose stools, acute on chronic patient states worse with taking antibiotics (Charmaine Dey) Integumentary Skin Exam: Warm, Dry (Charmaine Dey) Extremeties Extremities Exam: Pedal Pulses Palpable, Moderate Edema (lower extremities) (Charmaine Dey) Neurologic Neuro Exam: Alert, Awake, Oriented, Speech Clear, Moving All Extremities Neuro Remarks Anxiety and focus, conversation jumps around (Charmaine Dey) Psychiatric Psych Exam: Appropriate Responses (Charmaine Dey) VTE Prophylaxis VTE Prophylaxis Meds: Heparin (Charmaine Dey) Assessment/Plan Assessment/Plan Pulmonary aspergillosis, previously being treated before this hospital admission COPD, chronic bronchitis, asthma sputum culture normal flaco, patient states brown thick Treatment with Zithromax , DuoNeb's, oxygen, steroids Possible Congestive heart failure, pulmonary edema Continues with bilateral lower extremity edema, IV Lasix continues, monitor I&O Chronic kidney disease -Monitor renal function closely -Continue with cautious hydration Type 2 diabetes, uncontrolled -Diabetic diet, Accu-Cheks before meals and at bedtime, currently steroids are being tapered, Chronic right great toe ulceration, has been seen for the past several months and when care outpatient therapy Will have nurse wound care team evaluate and set a plan of care, currently wound is open to air needs a dry dressing intact Hypertension -Continue home meds CAD -s/p stenting in past., Continue medical management Heparin for DVT prophylaxis Discussed patient Discussed with RN Discussed with patient Discuss with Dr. tom, seen on his behalf (Charmaine Dey) Assessment/Plan pt is seen & examined d/w PT & his at bedside chaneg abx to po taper steroids cont IV l;asix, inc dsoe fluid restriction echo [p] consult card , dr austin am labs will f/u (Indira Tom MD) Charmaine Dey Apr 11, 2017 10:44 Indira Tom MD Apr 11, 2017 13:04
[2017-04-11] MEDS: AZITHROMYCIN INJ 500 MG in SODIUM CHLOR 0.9% 250 ML INJ 250 ML IV SCH (12:33)
--- NOTE | 2017-04-11 13:19 | PD.WCN.NOT ---
Wound Consult Description: Consult received for wound management for R great toe Communicated with: RN Danika Littlejohn morriston and spoke with Doctor Tom regarding orders Recommendation: Please follow outpatient podiatry orders from Doctor Leigh for continuity of care as follows: Acetic acid solution: Mix together the indicated amounts of white vinegar and sterile water: 1/4 cup of white vinegar (acetic acid) 3/4 cup sterile water Soak gauze in acetic acid solution and place on wound for 30 minutes let dry and then remove. Apply Betadine , alginate (Maxorb II), and a sterile 2x2, and wrap with dry dressing. Change dressing every other day Additional Information: Patient seen on for evaluation of R toe wound management. Patient states ,"I see a fingerprint clerk regularly, Doctor Leigh and she wrote orders."Removed gauze wrap in place to reveal wound to R great toe plantar surface. Wound bed is noted with 100% dry red clean tissue. Wound has scant serous drainage that is without odor. Wound measures ~2cm x~2cm x~0.1cmPeriwound is noted with mild hyperkeratotic tissue.Changed dressing per Doctor Leigh's order as follows: Applied vinegar and sterile water over wound bed and left in place to dry for 30 minutes. Removed acetic acid solution soaked gauze. Applied povidone-iodine solution over wound bed and covered with small piece of calcium alginate ( Maxorb II) dressing. Covered with sterile 2x2 gauze. Secured dressing with dry 4x4 gauze pad, rolled gauze and paper tape. Qing Grewal [facility] Apr 11, 2017 13:19
--- NOTE | 2017-04-11 14:48 | RADRPT ---
EXAM DATE/TIME: 04/11/2017 13:42 [place] COMPARISON: CHEST SINGLE AP, March 26, 2017, 11:17. INDICATIONS : Shortness of breath; CHF. MEDICAL HISTORY : Cardiovascular disease. Pancreatitis. Diabetes mellitus type 1. SURGICAL HISTORY : CABG. ENCOUNTER: Subsequent ACUITY: 2 weeks PAIN SCORE: 0/10 LOCATION: Bilateral chest FINDINGS: A single portable frontal view of the chest show small bilateral pleural effusions and bibasilar infi ltrates. These are new. Median sternotomy wires. Normal heart size. CONCLUSION: New small bilateral pleural effusions and bibasilar infiltrates. Guy Banuelos Jr., MD on April 11, 2017 at 14:46 Board Certified Radiologist. This report was verified electronically.
--- NOTE | 2017-04-11 20:44 | ECHRPT ---
Indication: heart failure CONCLUSIONS Normal left ventricular size. Wall thickness is normal. The left ventricular systolic function is normal with an estimated ejection fraction in the range of 60-65%. Mitral anular calcification. Calcification of the posterior mitral valve leaflet. Trace aortic valve regurgitation. Aortic valve sclerosis is present. There is mild tricuspid valve regurgitation. There is estimated moderate pulmonary hypertension present (58 mmHg). BP: / HR: Rhythm: Sinus MEASUREMENTS (Male / Female) Normal Values Technical Quality:Technically difficult study 2D ECHO LV Diastolic Diameter PLAX 4.4 cm 4.2 - 5.9 / 3.9 - 5.3 cm LV Systolic Diameter PLAX 3.1 cm IVS Diastolic Thickness 0.8 cm 0.6 - 1.0 / 0.6 - 0.9 cm LVPW Diastolic Thickness 0.6 cm 0.6 - 1.0 / 0.6 - 0.9 cm LV Relative Wall Thickness 0.3 RV Internal Dim ED PLAX 1.6 cm LA Systolic Diameter LX 3.3 cm 3.0 - 4.0 / 2.7 - 3.8 cm DOPPLER MV Peak Velocity 189.0 cm/s MV Peak Gradient 14.3 mmHg MV Mean Velocity 93.8 cm/s MV Mean Gradient 5.0 mmHg MV Area PHT 3.3 cm MR Peak Velocity 429.0 cm/s MR Peak Gradient 73.6 mmHg Mitral E Point Velocity 165.0 cm/s Mitral A Point Velocity 112.0 cm/s Mitral E to A Ratio 1.5 TR Peak Velocity 345.0 cm/s TR Peak Gradient 47.6 mmHg FINDINGS LEFT VENTRICLE Normal left ventricular size. Wall thickness is normal. The left ventricular systolic function is normal with an estimated ejection fraction in the range of 60-65%. MITRAL VALVE Severe thickening of the teresa anulus. Mitral anular calcification. AORTIC VALVE Trace aortic valve regurgitation. Aortic valve sclerosis is present. TRICUSPID VALVE There is mild tricuspid valve regurgitation. There is estimated moderate pulmonary hypertension present (58 mmHg). Bruce Whelan MD, FACC (Electronically Signed) Final Date:11 April 2017 20:43
--- NOTE | 2017-04-11 21:19 | HHI.PR ---
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 Has SOB, wheezing Cough with sp No Fever Objective Vital Signs Vital Signs Date Time Temp Pulse Resp B/P (MAP) Pulse Ox O2 Delivery O2 Flow Rate FiO2 04/11/17 16:04 97.5 70 18 130/60 (83) 94 04/11/17 12:04 97.5 71 19 131/59 (83) 95 04/11/17 08:04 97.3 92 19 177/76 (109) 98 04/11/17 08:00 96 Room Air 3.00 21 04/11/17 08:00 86 04/11/17 04:25 95 21 04/11/17 04:00 97.4 60 20 130/62 (84) 95 04/11/17 03:46 Room Air 04/11/17 00:00 97.8 70 20 132/66 (88) 97 04/11/17 00:00 Room Air I/O 04/10/17 04/10/17 04/10/17 04/11/17 04/11/17 04/11/17 07:00 15:00 23:00 07:00 15:00 23:00 Intake Total 240 ml 960 ml 280 ml 250 ml Output Total 700 ml 300 ml 600 ml Balance -460 ml 660 ml -320 ml 250 ml Intake Oral 240 ml 960 ml 280 ml IV Total 250 ml Output Urine Total 700 ml 300 ml 600 ml # Voids 2 # Bowel Movements 1 0 Result Diagram: 04/11/1752704/11/17527 Objective Remarks GENERAL: Elderly male mild sob SKIN: Warm and dry. HEAD: Normocephalic. EYES: No scleral icterus. No injection or drainage. NECK: Supple, trachea midline. No JVD or lymphadenopathy. CARDIOVASCULAR: Regular rate and rhythm without murmurs, gallops, or rubs. RESPIRATORY: Breath sounds equal bilaterally. No accessory muscle use. Exp rhonchi GASTROINTESTINAL: Abdomen soft, non-tender, nondistended. MUSCULOSKELETAL: No cyanosis, or edema. BACK: Nontender without obvious deformity. No CVA tenderness. A/P Assessment and Plan Bronchial asthma exac Ch. 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 Davis Valentino MD Apr 11, 2017 21:19
[2017-04-11] MEDS: TAMSULOSIN HCL 0.4 MG CAP PO SCH (21:30)
[2017-04-11] MEDS: FAMOTIDINE 20 MG TAB PO SCH (21:30)
[2017-04-12] VITALS (10 sets, daily range): BP systolic 114–126; BP diastolic 52–70; PULSE 62–86; RESP 16–20; TEMP 97–97.8; O2SAT 95–98
--- NOTE | 2017-04-12 05:21 | MB ---
cc: SALLY SEO DO DATE OF CONSULTATION April 11, 2017 IMPRESSIONS 1. Shortness of breath, progressive. Positive sputum culture for aspergillosi. The patient has had some hemoptysis and a productive cough of brownish sputum. Rule out invasive aspergillosis versus colonization. 2. Diabetes uncontrolled. 3. Atherosclerotic heart disease, [place] [employer] Functional Class II. History of coronary bypass grafting x 3 approximately 3 years ago including a TRIPATHI graft to the LAD, reverse saphenous vein graft, circ marginal branch and reverse saphenous vein graft to the right posterior descending artery. 4. Dyslipidemia. 5. Lower extremity edema. 6. Nonhealing ulcer great toe right foot. Rule out osteomyelitis although the patient states this was healing slowly. 7. Hypothyroidism. 8. History of abdominal aortic aneurysm. 9. Remote tobacco usage. COPD. The patient does have oxygen at home. RECOMMENDATIONS Cardiac-marin, the patient seems to be very stable. He is having no anginal symptoms, no real signs of congestive heart failure though a CT scan suggested bilateral pleural effusions. CLINICAL DATA Mr. Skinner is an 81-year-old male with known coronary artery disease admitted to the hospital with shortness of breath. He apparently has a nonhealing ulcer for 3 months. This has been gradually debrided by his filter tank tender helper who he has been seeing twice a month. It is unclear if cultures have ever been taken of his wound on his toe. He began to develop progressive shortness of breath with productive cough. He has even had some hemoptysis. He has been started on several antibiotics including Cipro which he has been taking for the past two weeks. He went to his warm in worker; a sputum culture demonstrated aspergillosis and he was started on antifungal medication. He states he took three of these a day for several days and was okay. He then increased it to four a day and he began to feel very poorly. His shortness of breath apparently progressed, he did have some lower extremity edema. He has had no angina. He has had no palpitations, dizzy spells or syncope. Since he has had this infection he states his blood sugars have been very difficult to control. He has been on steroids intermittently. He tells me he has not been on steroids in the recent past. OTHER MEDICATIONS 1. Local Acetic acid/vinegar solution for his great toe. 2. Clindamycin 150 t.i.d. intermittently. 3. Atorvastatin either 20 or 40 mg at night. 4. Potassium chloride 20 mEq daily. 5. Lasix 40 mg daily which she uses on a p.r.n. basis. 6. Symbicort inhaler. 7. Flomax 0.4 daily. 8. Short-acting and long-acting insulin - Lantus and NovoLog. 9. Gabapentin 100 t.i.d. 10. Multivitamins. 11. Montelukast 10 mg daily. 12. Fish oil capsules. 13. Astragalus capsules. 14. Aspirin 81 daily. 15. Lisinopril 10 daily. 16. CoQ10. 17. Turmeric. He has no history of recent congestive heart failure or cardiac arrhythmias. He has had no anginal type symptoms but as I recall he did not have angina prior to his surgical revascularization. He has no history of seizure or stroke. There is no history of TIA. There is a history of COPD and a history of asthma. He does have chronic bronchitis. His cardiac risk factors include hypertension, dyslipidemia, diabetes and remote tobacco usage. He has no history of pericardial heart disease. He has no history of GI bleeding, acid peptic disease. There is no history of liver or gallbladder disease. I believe there is a history of mild renal insufficiency. There is no history of thyroid disease or DVT/hypercoagulable state. PAST SURGICAL HISTORY 1. Coronary artery bypass grafting surgery x 3 in April of 2013. 2. He has had cardiac catheterization. 3. He has had previous PCI including a stent to his RCA and PDA. 4. He has had some lower extremity revascularization procedures in the past. 5. Treatment for cancer of the prostate. He has had no recent chest pain or syncope. He has had no fever or shaking chills. Highest temperature recorded since being hospitalized is 100.2. PHYSICAL EXAMINATION GENERAL: Physical exam at this time demonstrates an alert, oriented male sitting up in bed. The does not appear to be toxic. He is in no apparent distress. He is breathing oxygen per nasal cannula although it was off his nose when I entered the room. VITAL SIGNS: His most recent vital signs include a blood pressure of 132/66. His heart rate is 65-70. HEENT EXAM: Anicteric sclerae. NECK: Jugular venous pressures are normal. There are no carotid bruits. LUNGS: He has rhonchi in his right lung field. No definite rales are noted. CARDIOVASCULAR: Jugular venous pressures did not appear to be elevated. Cardiac exam demonstrates distant heart sounds. Regular rate and rhythm. No S3. He has got a 1-1/6 systolic ejection murmur. ABDOMEN: Soft and nontender. No obvious masses noted. EXTREMITIES: Demonstrate 2+ edema detention up the shins bilaterally. He has a bandage over his great toe on the right side which was not removed. Peripheral pulses are diminished. RADIOLOGY STUDIES Chest x-ray demonstrates pleural effusions and infiltrate right mid-lung field. LABORATORY FINDINGS White cell count today was 11,400, hematocrit 34%, platelet count is 171. A recent chemistry profile today - 'lytes 130, 4.2, 98, 22 with a BUN of 61, a creatinine of 1.4. Blood sugar fasting this morning was 249. Fasting blood sugar yesterday was 556. ELECTROCARDIOGRAM A 12-lead electrocardiogram demonstrates normal sinus rhythm. There is a nonspecific interventricular conduction delay and nonspecific ST-T changes. DISCUSSION This is an 81-year-old male with known coronary artery disease and poorly controlled diabetes admitted to the hospital with pneumonia in a compromised host. Cultures apparently have demonstrated aspergillosis, unclear if this is colonization or invasive aspergillosis. CT scan failed to demonstrate any cavitating lesions. Cardiac-marin, the patient appears to be doing well. I would continue all of his previous medications including aspirin, lisinopril, continue atorvastatin as previously prescribed. DO HERMES Arora/TEJAL /5:19 PM /5:00 AM
[2017-04-12] MEDS: INSULIN ASPART SUPPLEMENTAL SCALE SQ SCH ×4 (05:57→20:40)
[2017-04-12] MEDS: RESP: ALBUTEROL 2.5 MG/IPRATROPIUM 0.5 MG NEB (PRN) NEB (06:22)
[2017-04-12] MEDS: GABAPENTIN 100 MG CAP PO SCH ×3 (08:36→18:21)
[2017-04-12] MEDS: predniSONE 10 MG TAB PO SCH (08:36)
[2017-04-12] MEDS: LISINOPRIL 10 MG TAB PO SCH (08:36)
[2017-04-12] MEDS: POTASSIUM CHLORIDE 10 MEQ CONTROLLED RELEASE TAB PO SCH ×2 (08:36→20:01)
[2017-04-12] MEDS: AZITHROMYCIN 250 MG TAB PO SCH (08:36)
[2017-04-12] MEDS: DOCUSATE SODIUM 50 MG/SENNA 8.6 MG TAB PO SCH ×2 (08:36→20:03)
[2017-04-12] MEDS: ASPIRIN EC 81 MG TABEC PO SCH (08:36)
[2017-04-12] MEDS: HEPARIN SODIUM - SQ 10,000 UNITS/ML VIAL SQ SCH ×2 (08:37→20:02)
[2017-04-12] MEDS: FUROSEMIDE 20 MG/2 ML VIAL IV PUSH SCH ×2 (08:37→18:22)
[2017-04-12] MEDS: BUDESONIDE-FORMOTEROL 80/4.5 MCG INHALER INH SCH ×2 (08:37→20:00)
[2017-04-12] MEDS: INSULIN DETEMIR 100 UNITS/ML VIAL SQ SCH ×2 (09:00→20:39)
[2017-04-12] MEDS: SODIUM CHLORIDE 0.9% FLUSH 10 ML FLUSH IV FLUSH SCH ×2 (09:04→20:00)
--- NOTE | 2017-04-12 09:12 | HHI.PR ---
Subjective Subjective Remarks Patient is sitting on side of the bed Alert oriented no active shortness of breath noted Talkative and seems to be feeling better today Afebrile Still have some mild diarrhea (Charmaine Dey) Review of Systems Constitutional Constitutional: Fatigue, Weakness Constitutional Remarks 10 point review obtained positives noted Less weak today (Charmaine Dey) Pulmonary Respiratory: Coughing, Shortness of Breath (Charmaine Dey) GI/Abdomen GI/Abdominal Exam: Diarrhea (patient states he has had multiple antibiotics which caused his diarrhea) (Charmaine Dey) Musculoskeletal MS: Weakness (Charmaine Dey) Integumentary Skin: Wounds (right posterior great toe) (Charmaine Dey) Psychiatric Psychiatric: Normal Mood, Anxiety (over multiple current conditions) (Charmaine Dey) Vitals/Results Vital Signs Vital Signs Date Time Temp Pulse Resp B/P (MAP) Pulse Ox O2 Delivery O2 Flow Rate FiO2 04/12/17 06:24 97.8 66 18 126/70 (88) 98 04/12/17 04:46 62 04/12/17 01:20 97.6 64 16 126/60 (82) 98 04/11/17 22:27 96 Nasal Cannula 3.00 04/11/17 21:48 97.8 66 16 128/56 (80) 98 04/11/17 20:00 56 04/11/17 20:00 Room Air 04/11/17 16:04 97.5 70 18 130/60 (83) 94 04/11/17 12:04 97.5 71 19 131/59 (83) 95 (Charmaine Dye) CBC/BMP: 04/11/17 0528 04/11/17 0528 Imaging Remarks Last Impressions Chest X-Ray 04/11/17 0000 Signed Impressions: Service Date/Time: Tuesday, April 11, 2017 13:42 - CONCLUSION: New small bilateral pleural effusions and bibasilar infiltrates. Guy Banuelos Jr., MD Chest CT 04/08/17 0000 Signed Impressions: Service Date/Time: Saturday, April 08, 2017 21:04 - CONCLUSION: 1. There is an atypical appearing nonspecific pneumonia in the right midlung, most likely infectious or inflammatory. 2. Small to moderate right and small left pleural effusions. 3. Streaky atelectasis at both bases, right worse than left. 4. Upper limits of normal to mildly enlarged mediastinal lymph nodes. Ronnell Sheffield MD (Charmaine Dey M. SPRING MACHINE OPERATOR) Physical Exam General General Appearance: No Acute Distress, Comfortable, Pale, Anxious ([place],Charmaine M. SPRING MACHINE OPERATOR) Eyes Eye Exam: Pupils Equal, Sclera White (Yissel,Charmaine M. SPRING MACHINE OPERATOR) Ears & Nose Ears & Nose Exam: Nasal Mucosa [place] (Yissel,Charmaine M. SPRING MACHINE OPERATOR) Throat Throat Exam: Oral Mucosa [place] & Moist ([place] M. SPRING MACHINE OPERATOR) Neck Neck Exam: Neck Supple, Trachea Midline (YisselCharmaine M. SPRING MACHINE OPERATOR) Pulmonary Resp Exam: Breath Sounds Equal, No Distress, Rhonchi, Decreased Bases, Diminished Breath Sounds Resp Remarks Bibasilar rales (Yissel,Susan M. SPRING MACHINE OPERATOR) Cardiology CV Exam: Regular, Normal Sinus Rhythm (Yissel,Charmaine M. SPRING MACHINE OPERATOR) Gastrointestinal/Abdomen GI Exam: Soft, Non-Tender, Bowel Sounds Present GI Remarks Loose stools, acute on chronic patient states worse with taking antibiotics ([place],Charmaine M. SPRING MACHINE OPERATOR) Integumentary Skin Exam: Warm, Dry ([place] M. SPRING MACHINE OPERATOR) Extremeties Extremities Exam: Pedal Pulses Palpable, Moderate Edema (lower extremities) (Yissel,Charmaine M. SPRING MACHINE OPERATOR) Neurologic Neuro Exam: Alert, Awake, Oriented, Speech Clear, Moving All Extremities Neuro Remarks Anxiety and focus, conversation jumps around (Yissel,Charmaine M. SPRING MACHINE OPERATOR) Psychiatric Psych Exam: Appropriate Responses ([place]issel,Charmaine M. SPRING MACHINE OPERATOR) VTE Prophylaxis VTE Prophylaxis Meds: Heparin ([place] M. SPRING MACHINE OPERATOR) Assessment/Plan Assessment/Plan Vital signs reviewed afebrile Labs reviewed, CT scan noted no cavitary lesions, still has some acute kidney injury which may be at his baseline Pulmonary aspergillosis, been on a treatment regimen for approximately one month, possible invasive versus colonized Appreciate pulmonary input COPD, chronic bronchitis, asthma States less sputum today, cough improved, still occasional mild hemoptysis or brown sputum Treatment antibiotics , DuoNeb's, oxygen, steroids, sputum culture shows heavy growth of normal flaco, 8-25 Possible Congestive heart failure, pulmonary edema Continues with bilateral lower extremity edema, IV Lasix continues, monitor I&O Chronic kidney disease -Monitor renal function closely, still present but no acute changes this may be close to his baseline, has also been receiving some IV Lasix with some diuresis -Continue with cautious hydration Type 2 diabetes, uncontrolled, still having some spikes in blood sugar , decrease steroids -Diabetic diet, Accu-Cheks before meals and at bedtime, Chronic right great toe ulceration, has been seen for the past several months and when care outpatient therapy dry dressing intact, patient has his outpatient instructions with him. Ulceration is healing, no erythema or edema noted Hypertension Monitor, medical management CAD -s/p stenting in past., Continue medical management Patient has slow but gradual improvement, we'll have physical therapy to come ambulate, and assist him with his mobility and strengthening Patient has been very active at home, and is very motivated to keep his independence Discussed with patient Discussed with nurse Nury with Dr. tom, seen on his behalf (Charmaine Dey) Assessment/Plan pt is seen & examined d/w PT in detail, d/w charmaine clinically improving ss for dc planning/possible dc home in am see orders will f/u (Indira Tom MD) Charmaine Dey Apr 12, 2017 09:12 Indira Tom MD Apr 12, 2017 13:12
[2017-04-12 15:31] LABS: BICARBONATE 26.5 MEQ/L (21.0-32.0); POTASSIUM 4.5 MEQ/L (3.5-5.1)
[2017-04-12] MEDS: TAMSULOSIN HCL 0.4 MG CAP PO SCH (20:01)
[2017-04-12] MEDS: FAMOTIDINE 20 MG TAB PO SCH (20:01)
--- NOTE | 2017-04-12 20:10 | HHI.PR ---
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 Has SOB, wheezing Cough with sp No Fever [place] dizzy disoriented this AM, better now Objective Vital Signs Vital Signs Date Time Temp Pulse Resp B/P (MAP) Pulse Ox O2 Delivery O2 Flow Rate FiO2 04/12/17 17:26 95 Nasal Cannula 3.00 04/12/17 16:03 97.6 67 18 116/54 (74) 95 04/12/17 12:04 97.0 72 18 116/54 (74) 95 04/12/17 08:30 97 Nasal Cannula 3.00 04/12/17 08:04 97.1 73 18 114/56 (75) 97 04/12/17 08:00 86 04/12/17 08:00 96 Room Air 21 04/12/17 06:24 97.8 66 18 126/70 (88) 98 04/12/17 04:46 62 04/12/17 01:20 97.6 64 16 126/60 (82) 98 04/11/17 22:27 96 Nasal Cannula 3.00 04/11/17 21:48 97.8 66 16 128/56 (80) 98 I/O 04/11/17 04/11/17 04/11/17 04/12/17 04/12/17 04/12/17 07:00 15:00 23:00 07:00 15:00 23:00 Intake Total 280 ml 250 ml 720 ml 480 ml Output Total 600 ml Balance -320 ml 250 ml 720 ml 480 ml Intake Oral 280 ml 720 ml 480 ml IV Total 250 ml Output Urine Total 600 ml # Voids 5 # Bowel Movements 0 Result Diagram: 04/11/17 0528 04/12/17 1450 Objective Remarks GENERAL: Elderly male mild sob SKIN: Warm and dry. HEAD: Normocephalic. EYES: No scleral icterus. No injection or drainage. NECK: Supple, trachea midline. No JVD or lymphadenopathy. CARDIOVASCULAR: Regular rate and rhythm without murmurs, gallops, or rubs. RESPIRATORY: Breath sounds equal bilaterally. No accessory muscle use. Exp rhonchi GASTROINTESTINAL: Abdomen soft, non-tender, nondistended. MUSCULOSKELETAL: No cyanosis, or edema. BACK: Nontender without obvious deformity. No CVA tenderness. A/P Assessment and Plan Bronchial asthma exac Ch. 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 Krause, no need for Anti fungals . Davis Valentino MD Apr 12, 2017 20:10
[2017-04-13] VITALS (7 sets, daily range): BP systolic 104–147; BP diastolic 52–68; PULSE 56–79; RESP 19–20; TEMP 97.3–98.1; O2SAT 94–98
[2017-04-13] MEDS: RESP: ALBUTEROL 2.5 MG/IPRATROPIUM 0.5 MG NEB (PRN) NEB (05:05)
[2017-04-13] MEDS: INSULIN ASPART SUPPLEMENTAL SCALE SQ SCH ×2 (05:52→11:47)
[2017-04-13] MEDS: INSULIN DETEMIR 100 UNITS/ML VIAL SQ SCH (09:13)
[2017-04-13] MEDS: FUROSEMIDE 20 MG/2 ML VIAL IV PUSH SCH (09:15)
[2017-04-13] MEDS: predniSONE 10 MG TAB PO SCH (09:15)
[2017-04-13] MEDS: AZITHROMYCIN 250 MG TAB PO SCH (09:15)
[2017-04-13] MEDS: POTASSIUM CHLORIDE 10 MEQ CONTROLLED RELEASE TAB PO SCH (09:15)
[2017-04-13] MEDS: SODIUM CHLORIDE 0.9% FLUSH 10 ML FLUSH IV FLUSH SCH (09:15)
[2017-04-13] MEDS: LISINOPRIL 10 MG TAB PO SCH (09:15)
[2017-04-13] MEDS: GABAPENTIN 100 MG CAP PO SCH ×2 (09:15→11:46)
[2017-04-13] MEDS: ASPIRIN EC 81 MG TABEC PO SCH (09:15)
[2017-04-13] MEDS: BUDESONIDE-FORMOTEROL 80/4.5 MCG INHALER INH SCH (09:16)
[2017-04-13] MEDS: DOCUSATE SODIUM 50 MG/SENNA 8.6 MG TAB PO SCH (09:16)
[2017-04-13] MEDS: HEPARIN SODIUM - SQ 10,000 UNITS/ML VIAL SQ SCH (09:16)
--- NOTE | 2017-04-13 11:08 | HHI.PR ---
Subjective Subjective Remarks Patient is sitting on side of the bed Alert oriented no active shortness of breath noted Talkative, hoping to go home (Charmaine Dey) Review of Systems Constitutional Constitutional: Fatigue (improved), Weakness (improved) Constitutional Remarks 10 point review obtained positives noted Less weak today (Charmaine Dey) Pulmonary Respiratory: Coughing (improved), Shortness of Breath (controlled) (Charmaine Dey) GI/Abdomen GI/Abdominal Exam: Diarrhea (patient states he has had multiple antibiotics which caused his diarrhea) (Charmaine Dey) Musculoskeletal MS: Weakness (Charmaine Dey) Integumentary Skin: Wounds (right posterior great toe) (Charmaine Dey) Psychiatric Psychiatric: Normal Mood, Anxiety (over multiple current conditions) (Charmaine Dey) Vitals/Results Vital Signs Vital Signs Date Time Temp Pulse Resp B/P (MAP) Pulse Ox O2 Delivery O2 Flow Rate FiO2 04/13/17 08:00 97.8 70 19 111/56 (74) 96 04/13/17 07:59 79 04/13/17 05:06 98 Nasal Cannula 2.00 04/13/17 04:00 97.3 56 20 108/52 (70) 94 04/13/17 00:00 97.5 60 20 104/53 (70) 94 04/12/17 20:00 64 04/12/17 20:00 Nasal Cannula 3.00 04/12/17 20:00 97.5 67 20 115/52 (73) 96 04/12/17 17:26 95 Nasal Cannula 3.00 04/12/17 16:03 97.6 67 18 116/54 (74) 95 04/12/17 12:04 97.0 72 18 116/54 (74) 95 (Charmaine Dey) CBC/BMP: 04/11/17 0528 04/12/17 1450 Lab Results Laboratory Tests Test 04/12/17 14:50 Blood Urea Nitrogen 58 MG/DL Creatinine 1.57 MG/DL Random Glucose 318 MG/DL Calcium Level 8.5 MG/DL Sodium Level 139 MEQ/L Potassium Level 4.5 MEQ/L Chloride Level 103 MEQ/L Carbon Dioxide Level 26.5 MEQ/L Anion Gap 10 MEQ/L Estimat Glomerular Filtration Rate 43 ML/MIN Imaging Remarks Last Impressions Chest X-Ray 04/11/17 0000 Signed Impressions: Service Date/Time: Tuesday, April 11, 2017 13:42 - CONCLUSION: New small bilateral pleural effusions and bibasilar infiltrates. Guy Banuelos Jr., MD Chest CT 04/08/17 0000 Signed Impressions: Service Date/Time: Saturday, April 08, 2017 21:04 - CONCLUSION: 1. There is an atypical appearing nonspecific pneumonia in the right midlung, most likely infectious or inflammatory. 2. Small to moderate right and small left pleural effusions. 3. Streaky atelectasis at both bases, right worse than left. 4. Upper limits of normal to mildly enlarged mediastinal lymph nodes. Ronnell Sheffield MD (HamshireCharmaine smalls M. MAMMAL KEEPER) Physical Exam General General Appearance: No Acute Distress, Comfortable, Pale, Anxious (Yissel,Susan M. MAMMAL KEEPER) Eyes Eye Exam: Pupils Equal, Sclera White ([place],Charmaine M. MAMMAL KEEPER) Ears & Nose Ears & Nose Exam: Nasal Mucosa [place] (Yissel,Charmaine M. MAMMAL KEEPER) Throat Throat Exam: Oral Mucosa [place] & Moist ([place],Charmaine M. MAMMAL KEEPER) Neck Neck Exam: Neck Supple, Trachea Midline (Yissel,Charmaine M. MAMMAL KEEPER) Pulmonary Resp Exam: Breath Sounds Equal, No Distress (at rest), Decreased Bases ( improved less cough) Resp Remarks Bibasilar rales ([place],Charmaine M. MAMMAL KEEPER) Cardiology CV Exam: Regular, Normal Sinus Rhythm (Yissel,Charmaine M. MAMMAL KEEPER) Gastrointestinal/Abdomen GI Exam: Soft, Non-Tender, Bowel Sounds Present GI Remarks Loose stools improved, acute on chronic patient states worse with taking antibiotics (Yissel,Charmaine M. MAMMAL KEEPER) Integumentary Skin Exam: Warm, Dry (YisselCharmaine M. MAMMAL KEEPER) Extremeties Extremities Exam: Pedal Pulses Palpable, Moderate Edema (lower extremities) (Yissel,Charmaine M. MAMMAL KEEPER) Neurologic Neuro Exam: Alert, Awake, Oriented, Speech Clear, Moving All Extremities Neuro Remarks Anxiety and focus, conversation jumps around (Charmaine Dey) Psychiatric Psych Exam: Appropriate Responses (Charmaine Dey) VTE Prophylaxis VTE Prophylaxis Meds: Heparin (Charmaine Dey) Assessment/Plan Assessment/Plan Vital signs reviewed afebrile Labs reviewed, CT scan noted no cavitary lesions, still having some elevated blood sugars, now on by mouth steroids Pulmonary aspergillosis, been on a treatment regimen for approximately one month, possible invasive versus colonized Appreciate pulmonary input, no need for antifungal's COPD, chronic bronchitis, asthma Clinical improvement with symptoms of cough, sputum production, now on by mouth steroids prednisone 10 mg daily Continue antibiotics , DuoNeb's, oxygen, steroids, sputum culture shows heavy growth of normal flaco, 8-25 Possible Congestive heart failure, pulmonary edema Continues with bilateral lower extremity edema, IV Lasix continues, monitor I&O Chronic kidney disease -Monitor renal function closely, still present but no acute changes this may be close to his baseline, has also been receiving some IV Lasix with some diuresis -Continue with cautious hydration Type 2 diabetes, uncontrolled, still having some spikes in blood sugar , now on by mouth steroids -Diabetic diet, Accu-Cheks before meals and at bedtime, Chronic right great toe ulceration, has been seen for the past several months and when care outpatient therapy dry dressing intact, patient has his outpatient instructions with him. Ulceration is healing, no erythema or edema noted, now has open toed supportive diabetic shoe Slip free Stock left foot Hypertension Monitor, medical management CAD -s/p stenting in past., Continue medical management Sitting on side of bed, hoping to go home, states he is feeling better, voice clear, decreased sputum production, physical therapy Patient has been very active at home, and is very motivated to keep his independence Discussed with patient Discussed with nurse Arrington with Dr. tom, seen on his behalf (Charmaine Dey) Assessment/Plan pt is seen & examined d/w PT & his daughter in law d/w Charmaine medically stable for dc dC home today see MRS see Orders f/u pcp f/u pulmonary (Indira Tom MD) Charmaine Dey Apr 13, 2017 11:08 Indira Tom MD Apr 13, 2017 14:37
[2017-04-13] MEDS ORDERED: PRED10 PO (15:24)
[2017-04-13] MEDS ORDERED: POTA-243 PO (15:24)
[2017-04-13] MEDS ORDERED: FURO1TAB60 PO (15:24)
[2017-04-13] MEDS ORDERED: AZIT250T3 PO (15:24)
--- NOTE | 2017-04-13 16:33 | HHI.IDPN ---
Subjective Subjective Remarks doing well breathing is good afebrile Antibiotics azithromucin Allergies: Coded Allergies: Sulfa (Sulfonamide Antibiotics) (Unverified Allergy, Severe, 03/29/17) cefepime (Unverified Allergy, Severe, 03/29/17) ceftaroline fosamil (Unverified Allergy, Severe, 03/29/17) ceftriaxone (Unverified Allergy, Severe, 03/29/17) chlorpheniramine (Unverified Allergy, Severe, "MAKES ME FEEL SICK, 03/29/17 ) diatrizoate meglumine (Unverified Allergy, Severe, 03/29/17) gadobenic acid (Unverified Allergy, Severe, 03/29/17) gadodiamide (Unverified Allergy, Severe, 03/29/17) gadoteridol (Unverified Allergy, Severe, 03/29/17) hydroxyzine (Unverified Allergy, Severe, 03/29/17) iodixanol (Unverified Allergy, Severe, 03/29/17) iohexol (Unverified Allergy, Severe, 03/29/17) levofloxacin (Unverified Allergy, Severe, 03/29/17) midazolam (Unverified Allergy, Severe, HURT ALL OVER, 03/29/17) penicillin G (Unverified Allergy, Severe, RASH,FEVER, 03/29/17) Uncoded Allergies: metopro (Allergy, Severe, 03/26/17) Objective . Vital Signs Date Time Temp Pulse Resp B/P (MAP) Pulse Ox O2 Delivery O2 Flow Rate FiO2 04/13/17 12:00 97.7 68 19 132/61 (84) 96 04/13/17 09:00 Nasal Cannula 3.00 04/13/17 08:00 97.8 70 19 111/56 (74) 96 04/13/17 07:59 79 04/13/17 05:06 98 Nasal Cannula 2.00 04/13/17 04:00 97.3 56 20 108/52 (70) 94 04/13/17 00:00 97.5 60 20 104/53 (70) 94 04/12/17 20:00 64 04/12/17 20:00 Nasal Cannula 3.00 04/12/17 20:00 97.5 67 20 115/52 (73) 96 04/12/17 17:26 95 Nasal Cannula 3.00 . Laboratory Tests Test 04/12/17 14:50 Blood Urea Nitrogen 58 MG/DL Creatinine 1.57 MG/DL Random Glucose 318 MG/DL Calcium Level 8.5 MG/DL Sodium Level 139 MEQ/L Potassium Level 4.5 MEQ/L Chloride Level 103 MEQ/L Carbon Dioxide Level 26.5 MEQ/L Anion Gap 10 MEQ/L Estimat Glomerular Filtration Rate 43 ML/MIN Imaging Last Impressions Chest X-Ray 04/11/17 0000 Signed Impressions: Service Date/Time: Tuesday, April 11, 2017 13:42 - CONCLUSION: New small bilateral pleural effusions and bibasilar infiltrates. Guy Banuelos Jr., MD Chest CT 04/08/17 0000 Signed Impressions: Service Date/Time: Saturday, April 08, 2017 21:04 - CONCLUSION: 1. There is an atypical appearing nonspecific pneumonia in the right midlung, most likely infectious or inflammatory. 2. Small to moderate right and small left pleural effusions. 3. Streaky atelectasis at both bases, right worse than left. 4. Upper limits of normal to mildly enlarged mediastinal lymph nodes. Ronnell Sheffield MD Physical Exam CONSTITUTIONAL/GENERAL: This is an adequately nourished patient, in no apparent distress. TUBES/LINES/DRAINS: SKIN: No jaundice, rashes, or lesions. CARDIOVASCULAR: Regular rate and rhythm without murmurs, gallops, or rubs. No JVD. Peripheral pulses symmetric. RESPIRATORY/CHEST: Symmetric, unlabored respirations. Clear to auscultation. Breath sounds equal bilaterally. No wheezes, rales, or rhonchi. GASTROINTESTINAL: Abdomen soft, non-tender, nondistended. MUSCULOSKELETAL: Extremities without clubbing, cyanosis, or edema. NEUROLOGICAL: Awake and alert. Motor and sensory grossly within normal limits. Follows commands. Clear speech. Moves all extremities. PSYCHIATRIC: No obvious anxiety/depression. no apparent hallucinations or other psychotic thought process. 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
--- NOTE | 2017-04-13 17:10 | HHI.PR ---
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 Has SOB, wheezing Cough with sp No Fever Objective Vital Signs Vital Signs Date Time Temp Pulse Resp B/P (MAP) Pulse Ox O2 Delivery O2 Flow Rate FiO2 04/13/17 12:00 97.7 68 19 132/61 (84) 96 04/13/17 12:00 Nasal Cannula 3.00 04/13/17 09:00 Nasal Cannula 3.00 04/13/17 08:00 97.8 70 19 111/56 (74) 96 04/13/17 07:59 79 04/13/17 05:06 98 Nasal Cannula 2.00 04/13/17 04:00 97.3 56 20 108/52 (70) 94 04/13/17 00:00 97.5 60 20 104/53 (70) 94 04/12/17 20:00 64 04/12/17 20:00 Nasal Cannula 3.00 04/12/17 20:00 97.5 67 20 115/52 (73) 96 04/12/17 17:26 95 Nasal Cannula 3.00 I/O 04/12/17 04/12/17 04/12/17 04/13/17 04/13/17 04/13/17 06:59 14:59 22:59 06:59 14:59 22:59 Intake Total 720 ml 480 ml 280 ml 220 ml Output Total 400 ml 600 ml Balance 720 ml 480 ml -120 ml -380 ml Intake Oral 720 ml 480 ml 280 ml 220 ml Output Urine Total 400 ml 600 ml # Voids 5 # Bowel Movements 0 0 Result Diagram: 04/11/17 0528 04/12/17 1450 Objective Remarks GENERAL: Elderly male mild sob SKIN: Warm and dry. HEAD: Normocephalic. EYES: No scleral icterus. No injection or drainage. NECK: Supple, trachea midline. No JVD or lymphadenopathy. CARDIOVASCULAR: Regular rate and rhythm without murmurs, gallops, or rubs. RESPIRATORY: Breath sounds equal bilaterally. No accessory muscle use. Exp rhonchi GASTROINTESTINAL: Abdomen soft, non-tender, nondistended. MUSCULOSKELETAL: No cyanosis, or edema. BACK: Nontender without obvious deformity. No CVA tenderness. A/P Assessment and Plan Bronchial asthma exac Ch. 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 Krause, no need for Anti fungals .Stable from pulm standpoint Davis Valentino MD Apr 13, 2017 17:10
--- NOTE | 2017-04-13 18:44 | HHI.DS ---
Discharge Summary Admission Date Apr 08, 2017 at 12:55 Discharge Date: Apr 13, 2017 Admitting Diagnosis pneumonia, respiratory distress (1) Pulmonary aspergillosis ICD Codes: B44.1 - Other pulmonary aspergillosis Status: Acute (2) Respiratory distress ICD Codes: R06.00 - Dyspnea, unspecified Status: Acute (3) Pneumonia ICD Codes: J18.9 - Pneumonia, unspecified organism Status: Acute (4) Diabetes 1.5, managed as type 2 ICD Codes: E10.9 - Type 1 diabetes mellitus without complications Status: Chronic (5) Chronic ulcer of right foot ICD Codes: L97.519 - Non-pressure chronic ulcer of other part of right foot with unspecified severity Status: Chronic (6) Neuropathy ICD Codes: G62.9 - Polyneuropathy, unspecified Status: Chronic (7) Coronary artery disease ICD Codes: I25.10 - Atherosclerotic heart disease of [place] coronary artery without angina pectoris Status: Chronic (8) Renal insufficiency ICD Codes: N28.9 - Disorder of kidney and ureter, unspecified (9) Leukocytosis ICD Codes: D72.829 - Elevated white blood cell count, unspecified Status: Acute (10) Asthma ICD Codes: J45.909 - Unspecified asthma, uncomplicated Status: Chronic (11) COPD (chronic obstructive pulmonary disease) ICD Codes: J44.9 - Chronic obstructive pulmonary disease, unspecified Status: Chronic Brief History 81-year-old male with significant past medical history of COPD, asthma, chronic bronchitis, CAD, prior myocardial infarction, type 2 diabetes. Patient presented to the emergency room with complaint of worsening shortness of breath. According to the patient, he had been feeling sick for the last 2 weeks. He went to see his primary care physician who ordered sputum culture, culture came back positive for pulmonary aspergillosis and he was instructed to start taking Itraconazole. Patient was actually seen here on March 26, 2017 and was given his first IV dose at that time as the pharmacy did not have the medication. Patient stated that he has been using nebulizers at home without much relief. He denied any fever, had had chills. Had increased cough with sputum , dark brown. He had been using his 's oxygen. He doesn't follow- up regularly with the conveyor maintenance mechanic. Dr. Reyna was his developmental specialist whom he saw regularly for management of his asthma and pulmonary disorder. He was on chronic oral steroids. Patient stated that he checked his oxygen at home and was 76 on room air. CBC/BMP: 04/11/17 0528 04/12/17 1450 Significant Findings Laboratory Tests Test 04/11/17 05:28 04/12/17 14:50 White Blood Count 11.4 TH/MM3 (4.0-11.0) Red Blood Count 3.72 MIL/MM3 (4.50-5.90) Hemoglobin 11.7 GM/DL (13.0-17.0) Hematocrit 34.3 % (39.0-51.0) Blood Urea Nitrogen 61 MG/DL (7-18) 58 MG/DL (7-18) Creatinine 1.38 MG/DL (0.60-1.30) 1.57 MG/DL (0.60-1.30) Random Glucose 249 MG/DL (74-106) 318 MG/DL (74-106) Calcium Level 8.2 MG/DL (8.5-10.1) Sodium Level 130 MEQ/L (136-145) Estimat Glomerular Filtration Rate 49 ML/MIN (>89) 43 ML/MIN (>89) Imaging Last Impressions Chest X-Ray 04/11/17 0000 Signed Impressions: Service Date/Time: Tuesday, April 11, 2017 13:42 - CONCLUSION: New small bilateral pleural effusions and bibasilar infiltrates. Guy Banuelos Jr., MD Chest CT 04/08/17 0000 Signed Impressions: Service Date/Time: Saturday, April 08, 2017 21:04 - CONCLUSION: 1. There is an atypical appearing nonspecific pneumonia in the right midlung, most likely infectious or inflammatory. 2. Small to moderate right and small left pleural effusions. 3. Streaky atelectasis at both bases, right worse than left. 4. Upper limits of normal to mildly enlarged mediastinal lymph nodes. Ronnell Sheffield MD PE at Discharge General Appearance: No Acute Distress, Comfortable, Pale, Anxious Eyes Eye Exam: Pupils Equal, Sclera White Ears & Nose Ears & Nose Exam: Nasal Mucosa [place] Throat Throat Exam: Oral Mucosa [place] & Moist Neck Neck Exam: Neck Supple, Trachea Midline Pulmonary Resp Exam: Breath Sounds Equal, No Distress (at rest), Decreased Bases ( improved less cough Resp Remarks Bibasilar rales Cardiology CV Exam: Regular, Normal Sinus Rhythm Gastrointestinal/Abdomen GI Exam: Soft, Non-Tender, Bowel Sounds Present GI Remarks Loose stools improved, acute on chronic patient states worse with taking antibiotics Integumentary Skin Exam: Warm, Dry Extremeties Extremities Exam: Pedal Pulses Palpable, Moderate Edema (lower extremities) Neurologic Neuro Exam: Alert, Awake, Oriented, Speech Clear, Moving All Extremities Neuro Remarks Anxiety and focus, conversation jumps around Psychiatric Psych Exam: Appropriate Responses VTE Prophylaxis VTE Prophylaxis Meds: Heparin Hospital Course When he arrived in the emergency room, he sats were 96% on room air. Patient indicated that when he walks his oxygen drops. Patient came in caring a sputum sample from home. Patient was evaluated in emergency room, laboratory workup was completed. CBC remarkable for leukocytosis, WBC 16.6. Chest x-ray shows early infiltrate. BMP remarkable for chronic kidney disease, creatinine 1.49. B natruretic peptide 4:15, lactic acid 1.3 . Patient has extensive list of antibiotics, he received IV Zithromax. At this time, patient is hemodynamically stable. He is noted with frequent PVCs on telemetry monitoring. Denies any chest pain, no palpitations. Patient also endorses that he has a chronic ulcerated area to the right great toe, he had been under the care of a family dentist who has done approximately 2 grafts and he receives daily wound care. Patient was admitted for further evaluation and treatment. Consulting physician included pulmonary, infectious disease, hospitalist managed medical admission and discharge and follow-up visits. Diagnosis listed were used to treat this patient during his hospital stay. Vital signs reviewed every 4hr and when necessary, afebrile noted on last day Labs reviewed, CT scan noted no cavitary lesions, still having some elevated blood sugars, initially maintained on IV steroids, when stable transition to by mouth steroids Pulmonary aspergillosis, been on a treatment regimen for approximately one month, possible invasive versus colonized Appreciate pulmonary input, no need for antifungal's COPD, chronic bronchitis, asthma Clinical improvement with symptoms of cough, sputum production, now on by mouth steroids prednisone 10 mg daily Continue antibiotics , DuoNeb's, oxygen, steroids, sputum culture shows heavy growth of normal flaco, 8-25 Possible Congestive heart failure, pulmonary edema Continues with bilateral lower extremity edema, IV Lasix continues, monitor I&O Chronic kidney disease -Monitor renal function closely, still present but no acute changes this may be close to his baseline, has also been receiving some IV Lasix with some diuresis -Continue with cautious hydration Type 2 diabetes, uncontrolled, still having some spikes in blood sugar , now on by mouth steroids -Diabetic diet, Accu-Cheks before meals and at bedtime, Chronic right great toe ulceration, has been seen for the past several months and when care outpatient therapy dry dressing intact, patient has his outpatient instructions with him. Ulceration is healing, no erythema or edema noted, now has open toed supportive diabetic shoe Slip free Stock left foot Hypertension Monitor, medical management CAD -s/p stenting in past., Continue medical management On a.m. of discharge patient was Sitting on side of bed, hoping to go home, states he is feeling better, voice clear, decreased sputum production, physical therapy Patient has been very active at home, and is very motivated to keep his independence On day of discharge Dr. Tom examined patient pt is seen & examined d/w PT & his daughter in law d/w Charmaine medically stable for dc dC home today see MRS see Orders f/u pcp f/u pulmonary Pt Condition on Discharge: Stable Discharge Disposition: Discharge Home Discharge Instructions DIET: Follow Instructions for: Heart Healthy Diet, Diabetic Diet Fluid Restrictions: 1400cc/day Activities you can perform: Full Weight Bearing Follow up Referrals: Cardiology - 3 Weeks PCP Follow-up - 1 Week Pulmonology - 2 Weeks New Medications: Furosemide (Lasix) 40 Mg Tab 40 MG PO DAILY for chf, #30 TAB 0 Refills Azithromycin (Azithromycin) 250 Mg Tab 500 MG PO DAILY for infection for 3 Days, #6 TAB Potassium Chloride ER (Klor-Con 10) 10 Meq Tab 10 MEQ PO Q24 for low k for 30 Days, #30 TAB Prednisone (Prednisone) 10 Mg Tab 10 MG PO DAILY for copd for 3 Days, #3 TAB Continued Medications: Albuterol 18 GM Inh (Ventolin Hfa 18 GM Inh) 90 Mcg/Act Aer 2.5 PUFF INH Q4-6H PRN for SHORTNESS OF BREATH, #1 INHALER 0 Refills Ascorbic Acid (Vitamin C) 250 Mg Tab 250 MG PO for Nutritional Supplement, TAB [address] (Aspirin 81) 81 Mg Tabdr 81 MG PO DAILY, TAB 0 Refills Budesonide-Formoterol Inh (Symbicort Inh) 80-4.5 Mcg/Act Aero 1 PUFF INH Q12HR for Asthma Management, #1 INHALER 0 Refills Coenzyme Q10 (Ubidecarenone) (Coq10) 30 Mg Cap 10 MG PO DAILY Gabapentin (Gabapentin) 100 Mg Cap 100 MG PO TID, #90 CAP 0 Refills Insulin Aspart Inj (Novolog Inj) 1,000 Unit/10 Ml Vial 0 SQ DIRECTED for Blood Sugar Management, #10 ML 0 Refills Sliding Scale as directed. Insulin Glargine Inj (Lantus Inj) 1,000 Unit/10 Ml Vial 30 UNITS SQ am for Blood Sugar Management, VIAL 0 Refills Insulin Glargine Inj (Lantus Inj) 1,000 Unit/10 Ml Vial 6 UNITS SQ HS for Blood Sugar Management, VIAL 0 Refills Lisinopril (Lisinopril) 10 Mg Tab 10 MG PO DAILY, #30 TAB 0 Refills [place]-3 Fatty Acids (Fish Oil) 300 Mg Capsule 1200 MG PO Prednisone (Prednisone) 1 Mg Tab 1 MG PO DAILY, TAB 0 Refills Tamsulosin (Tamsulosin) 0.4 Mg Cap 0.4 MG PO HS for Manage Prostate Problems, #30 CAP 0 Refills Discontinued Medications: Itraconazole (Itraconazole) 100 Mg Cap 100 MG PO BID for Fungal Infection, CAP 0 Refills Tragacanth (Astragalus Root) 1 Pow Pow 500 MG PO DAILY Charmaine Dey Apr 13, 2017 18:44
== END 2017-04-13 16:56 | disposition home or self-care (01) | DRG 867 ==
LOC: NEPE 09:44 → NEDA 12:55 → N04A 17:03
PROVIDERS: ADMIT Specialist; ATTEND Specialist
DX: B44.1 Other pulmonary aspergillosis (principal); J18.9 Pneumonia, unspecified organism; N17.9 Acute kidney failure, unspecified; I13.0 Hypertensive heart and chronic kidney disease with heart failure and stage 1 through stage 4 chronic kidney disease, or unspecified chronic kidney disease; J44.0 Chronic obstructive pulmonary disease with (acute) lower respiratory infection; I50.9 Heart failure, unspecified; E10.22 Type 1 diabetes mellitus with diabetic chronic kidney disease; E10.621 Type 1 diabetes mellitus with foot ulcer; R04.2 Hemoptysis; J44.1 Chronic obstructive pulmonary disease with (acute) exacerbation; E10.65 Type 1 diabetes mellitus with hyperglycemia; G62.9 Polyneuropathy, unspecified; E78.5 Hyperlipidemia, unspecified; I25.10 Atherosclerotic heart disease of native coronary artery without angina pectoris; N18.9 Chronic kidney disease, unspecified; R09.02 Hypoxemia; L97.519 Non-pressure chronic ulcer of other part of right foot with unspecified severity; E03.9 Hypothyroidism, unspecified; I25.2 Old myocardial infarction; Z99.81 Dependence on supplemental oxygen; Z79.52 Long term (current) use of systemic steroids; Z79.4 Long term (current) use of insulin; Z88.1 Allergy status to other antibiotic agents; Z87.891 Personal history of nicotine dependence; Z92.3 Personal history of irradiation; Z85.46 Personal history of malignant neoplasm of prostate; Z95.5 Presence of coronary angioplasty implant and graft; Z95.1 Presence of aortocoronary bypass graft; Z86.79 Personal history of other diseases of the circulatory system
CPT/HCPCS: 71010; 71020; 71250; 80048; 82947; 82948; 83605; 83880; 84484; 85025; 85027; 87040; 87070; 87102; 87205; 87206; 93005; 93306; 94640; 94664; J0456; J1644; J1815; J1940; J2920; J7050; J7512

== ENCOUNTER 2017-05-31 23:46 | Observation (INO) | payer MEDICARE ==
[~2017-05-31] VITALS: Ht 170.2 cm; Wt 68.0 kg
[~2017-05-31 23:46] MED LIST changes: -ASTRPOW4 PO; +AZIT250T3 PO; +FURO1TAB60 PO; -ITRA100C PO; +POTA-243 PO; +PRED10 PO
[2017-05-31 23:59] VITALS: BP 152/70; PULSE 70; RESP 16; O2SAT 97
[2017-06-01] VITALS (12 sets, daily range): BP systolic 132–152; BP diastolic 60–85; PULSE 58–72; RESP 16–24; TEMP 97.7–98.2; O2SAT 94–99
[2017-06-01] MEDS ORDERED: LANTUS2P SQ (00:11)
[2017-06-01] MEDS ORDERED: PRED5TAB PO (00:12)
[2017-06-01] MEDS ORDERED: POTA-163 PO (00:13)
[2017-06-01] MEDS ORDERED: NOVOLOGP2 SQ (00:14)
[2017-06-01] MEDS ORDERED: ATOR40TA16 PO (00:14)
[2017-06-01] MEDS ORDERED: SODIUM CHLORIDE 0.9% FLUSH 10 ML FLUSH IVF PRN (00:15)
[2017-06-01 00:20] LABS: BASOPHIL % 0.3 % (0.0-2.0); EOSINOPHIL # 0.3 TH/MM3 (0-0.4); EOSINOPHIL % 1.8 % (0.0-4.0); HEMATOCRIT 38.3 % (39.0-51.0); HEMO FLAGS DIFF FINAL; LYMPH % 7.9 % (9.0-44.0); LYMPHOCYTE # 1.2 TH/MM3 (1.0-4.8); MEAN CELL VOLUME 91.8 FL (80.0-100.0); MEAN CORPUSCULAR HEMOGLOBIN 31.3 PG (27.0-34.0); MEAN CORPUSCULAR HGB CONC 34.1 % (32.0-36.0); MONO % 3.5 % (0.0-8.0); NEUT % 86.5 % (16.0-70.0); PLATELET COUNT 180 TH/MM3 (150-450); RED BLOOD COUNT 4.17 MIL/MM3 (4.50-5.90); RED CELL DISTRIBUTION WIDTH 15.3 % (11.6-17.2)
--- NOTE | 2017-06-01 00:22 | PD ---
HPI Chief Complaint: Chest Pain Time Seen by Provider: 00:01 Travel History International Travel<30 days: No Contact w/Intl Traveler<30days: No Traveled to known affect area: No History of Present Illness HPI The patient is an 82 year old male who presents to the [facility] emergency department with a history of chest pain and he reports began while he was sitting preparing to go to bed. He reports the pain is in the left side of his chest towards the center. He reports that the pain was sharp in character. He reports that the pain is coming and going. He last had the pain 30 minutes ago. He did used to sublingual and glycerin. He also took 2 baby aspirin this evening. The patient's furniture builder is . He reports that he last had a chemical stress test done 2 months ago. He reports that he was recently admitted to the hospital related to congestive heart failure exacerbation. The patient also reports that he has a history of chronic bronchitis. Approximately a week ago he was treated for bronchitis with an injection of steroid and a steroid taper. He reports that he was not placed on any antibiotic as he does have a history of multiple antibiotic allergies and was not having any fever with this. He reports that his cough symptoms have improved. He denies having any lower extremity edema. The patient is noted to have a postop shoe in place on the right foot. He reports that he has a chronic wound that is slowly healing on his right great toe. He reports that this wound is been there for the last 5 months. He denies any worsening of the wound, increased pain, or drainage. The patient reports that the chest pain was associated with shortness of breath. He reports that there was not radiation of the pain. He denies having any nausea or diaphoresis associated with this. He reports that his symptoms are different from his prior episodes of angina. On review of systems, the patient denies having any known recent fevers, neck pain, abdominal pain, vomiting, diarrhea, urinary symptoms, or neurologic symptoms. The patient reports that he has been moving his bowels regularly. [facility] Past Medical History Narrative Medical The patient's past medical history is significant for chronic bronchitis, asthma , diabetes mellitus, peripheral neuropathy, chronic right great toe wound, COPD , history of aspergillosis, hyperlipidemia, hypertension, coronary artery disease status post coronary artery bypass grafting and stent placement. The patient additionally reports having a history of congestive heart failure, history of prostate cancer. Hx Anticoagulant Therapy: No Arthritis: No Asthma: Yes Atrial Fibrillation: No Blood Disorders: No Heart Rhythm Problems: No Cancer: No Cardiac Catheterization: Yes (X7) Cardiovascular Problems: Yes High Cholesterol: No Chemotherapy: No Chest Pain: No Congestive Heart Failure: No COPD: Yes Cerebrovascular Accident: No Coronary Artery Disease: Yes Diabetes: Yes Diminished Hearing: No Endocrine: Yes Gastrointestinal Disorders: No GERD: No Glaucoma: No Genitourinary: Yes Headaches: No Hepatitis: No Hiatal Hernia: No Hypertension: No Immune Disorder: No Musculoskeletal: Yes Neurologic: No Psychiatric: No Reproductive: No Respiratory: Yes Migraines: No Myocardial Infarction: Yes (X7) Pancreatitis: Yes Radiation Therapy: No Seizures: No Sleep Apnea: No Ulcer: No Past Surgical History Narrative Surgical The patient's past surgical history is significant for cardiac catheterization with stent placement and angioplasty many years ago, tonsillectomy, coronary artery bypass grafting of 3 vessels. Abdominal Surgery: No AICD: No Appendectomy: No Arteriovenous Shunt: No Cardiac Surgery: Yes (TRIPLE BYPASS) Cholecystectomy: No Coronary Artery Bypass Graft: Yes Coronary Stent: Yes (X1) Ear Surgery: No Endocrine Surgery: No Eye Surgery: Yes (CATARACT SURGERY) Genitourinary Surgery: No Gynecologic Surgery: No Insulin Pump: No Joint Replacement: No Oral Surgery: No Pacemaker: No Thoracic Surgery: No Tonsillectomy: Yes Other Surgery: Yes Social History Alcohol Use: No Tobacco Use: No Substance Use: No Allergies-Medications (Allergen,Severity, Reaction): Coded Allergies: Sulfa (Sulfonamide Antibiotics) (Verified Allergy, Severe, 06/01/17) cefepime (Verified Allergy, Severe, 06/01/17) ceftaroline fosamil (Verified Allergy, Severe, 06/01/17) ceftriaxone (Verified Allergy, Severe, 06/01/17) chlorpheniramine (Verified Allergy, Severe, "MAKES ME FEEL SICK, 06/01/17) diatrizoate meglumine (Verified Allergy, Severe, 06/01/17) doxycycline (Verified Allergy, Severe, 06/01/17) gadobenic acid (Verified Allergy, Severe, 06/01/17) gadodiamide (Verified Allergy, Severe, 06/01/17) gadoteridol (Verified Allergy, Severe, 06/01/17) hydroxyzine (Verified Allergy, Severe, 06/01/17) iodixanol (Verified Allergy, Severe, 06/01/17) iohexol (Verified Allergy, Severe, 06/01/17) levofloxacin (Verified Allergy, Severe, 06/01/17) midazolam (Verified Allergy, Severe, HURT ALL OVER, 06/01/17) penicillin G (Verified Allergy, Severe, RASH,FEVER, 06/01/17) Uncoded Allergies: metopro (Allergy, Severe, 03/26/17) Reported Meds & Prescriptions Reported Meds & Active Scripts Active Lasix (Furosemide) 40 Mg Tab 40 Mg PO DAILY Reported Novolog Inj (Insulin Aspart) 1,000 Unit/10 Ml Vial 0 SQ DIRECTED Sliding Scale as directed. Atorvastatin (Atorvastatin Calcium) 40 Mg Tab 40 Mg PO HS Potassium Chloride ER (Potassium Chloride) 20 Meq Tab 20 Meq PO DAILY Prednisone 5 Mg Tab 5 Mg PO DAILY Lantus Inj (Insulin Glargine) 1,000 Unit/10 Ml Vial 15 Units SQ HS Fish Oil ([place]-3 Fatty Acids) 300 Mg Capsule 1,200 Mg PO Coq10 (Coenzyme Q10 (Ubidecarenone)) 30 Mg Cap 10 Mg PO DAILY Lisinopril 10 Mg Tab 10 Mg PO DAILY Tamsulosin (Tamsulosin HCl) 0.4 Mg Cap 0.4 Mg PO HS Symbicort Inh (Budesonide/Formoterol Fumarate) 80-4.5 Mcg/Act Aero 1 Puff INH Q12HR Novolog Inj (Insulin Aspart) 1,000 Unit/10 Ml Vial 0 SQ DIRECTED Sliding Scale as directed. Gabapentin 100 Mg Cap 100 Mg PO TID Aspirin 81 (Aspirin) 81 Mg Tabdr 81 Mg PO DAILY Vitamin C (Ascorbic Acid) 250 Mg Tab 250 Mg PO Ventolin Hfa 18 GM Inh (Albuterol Sulfate) 90 Mcg/Act Aer 2.5 Puff INH Q4-6H PRN Review of Systems General / Constitutional: No: Fever Eyes: No: Visual changes HENT: No: Headaches, Congestion Cardiovascular: Positive: Chest Pain or Discomfort, Dyspnea on exertion Respiratory: Positive: Cough, Shortness of Breath Gastrointestinal: No: Abdominal Pain Genitourinary: No: Dysuria Musculoskeletal: No: Pain Skin: No Rash Neurologic: Positive: Weakness (generalized weakness earlier today), No: Focal Abnormalities, Change in Mentation, Slurred Speech, Sensory Disturbance Psychiatric: No: Depression Endocrine: No: Polydipsia Hematologic/Lymphatic: No: Easy Bruising Physical Exam Narrative General: The patient is a well-developed well-nourished male in no acute distress. Head and Neck exam: Head is normocephalic atraumatic. Eyes: EOMI, pupils are equal round and reactive to light. Nose: Midline septum with pink mucous membranes Mouth: Dentition unremarkable. Moist mucus membranes. Posterior oropharynx is not erythematous. No tonsillar hypertrophy. Uvula midline. Airway patent. Neck: No palpable lymphadenopathy. No nuchal rigidity. No thyromegaly. Cardiovascular: Regular rate and rhythm without murmurs, gallops, or rubs. Lungs: The patient has decreased breath sounds in bilateral bases. No wheezes, rhonchi , or crackles are audible. Abdomen: Soft, without tenderness to palpation in all 4 quadrants of the abdomen. No guarding, rebound, or rigidity. Normal bowel sounds are audible. No tenderness on palpation of McBurney's point. Extremities: No clubbing, cyanosis, or edema. 2+ pulses in all 4 extremities. No calf tenderness on palpation. The patient has a postop shoe and placed on the right foot related to a right great toe ulcer that he reports is nearly healed. Back: No spinous process tenderness to palpation. No costovertebral angle tenderness to palpation. Neurologic Exam: Grossly nonfocal. Skin Exam: No rash noted. Intact skin that is warm and dry. Data Data Last Documented VS Vital Signs Date Time Temp Pulse Resp B/P (MAP) Pulse Ox O2 Delivery O2 Flow Rate FiO2 06/01/17 01:24 59 16 146/85 (105) Nasal Cannula 06/01/17 01:09 96 21 06/01/17 00:32 2.00 Orders Orders Electrocardiogram (06/01/17 00:01) B-Type Natriuretic Peptide (06/01/17 00:01) Ckmb (Isoenzyme) Profile (06/01/17 00:01) Complete Blood Count With Diff (06/01/17 00:01) Comprehensive Metabolic Panel (06/01/17 00:01) Magnesium (Mg) (06/01/17 00:01) Prothrombin Time / Inr (Pt) (06/01/17 00:01) Act Partial Throm Time (Ptt) (06/01/17 00:01) Troponin I (06/01/17 00:01) Lipase (06/01/17 00:01) Chest, Single Ap (06/01/17 00:01) Ecg Monitoring (06/01/17 00:01) Bilateral Bp Monitoring (06/01/17 00:01) Iv Access Insert/Monitor (06/01/17 00:01) Oximetry (06/01/17 00:01) Oxygen Administration (06/01/17 00:01) Sodium Chloride 0.9% Flush (Ns Flush) (06/01/17 00:15) Nitroglycerin 2% Oint (Nitroglycerin 2% (06/01/17 00:45) Albuterol-Ipratropium Neb (Duoneb Neb) (06/01/17 00:45) Aspirin Chew (Aspirin Chew) (06/01/17 00:45) Admit Order (Ed Use Only) (06/01/17 01:38) Labs Laboratory Tests Test 06/01/17 00:00 White Blood Count 15.0 TH/MM3 Red Blood Count 4.17 MIL/MM3 Hemoglobin 13.0 GM/DL Hematocrit 38.3 % Mean Corpuscular Volume 91.8 FL Mean Corpuscular Hemoglobin 31.3 PG Mean Corpuscular Hemoglobin Concent 34.1 % Red Cell Distribution Width 15.3 % Platelet Count 180 TH/MM3 Mean Platelet Volume 9.6 FL Neutrophils (%) (Auto) 86.5 % Lymphocytes (%) (Auto) 7.9 % Monocytes (%) (Auto) 3.5 % Eosinophils (%) (Auto) 1.8 % Basophils (%) (Auto) 0.3 % Neutrophils # (Auto) 13.0 TH/MM3 Lymphocytes # (Auto) 1.2 TH/MM3 Monocytes # (Auto) 0.5 TH/MM3 Eosinophils # (Auto) 0.3 TH/MM3 Basophils # (Auto) 0.0 TH/MM3 CBC Comment DIFF FINAL Differential Comment Prothrombin Time 10.1 SEC Prothromb Time International Ratio 0.9 RATIO Activated Partial Thromboplast Time 25.0 SEC Blood Urea Nitrogen 35 MG/DL Creatinine 1.43 MG/DL Random Glucose 177 MG/DL Total Protein 7.2 GM/DL Albumin 3.6 GM/DL Calcium Level 8.6 MG/DL Magnesium Level 1.8 MG/DL Alkaline Phosphatase 86 U/L Aspartate Amino Transf (AST/SGOT) 18 U/L Alanine Aminotransferase (ALT/SGPT) 37 U/L Total Bilirubin 0.3 MG/DL Sodium Level 138 MEQ/L Potassium Level 5.5 MEQ/L Chloride Level 104 MEQ/L Carbon Dioxide Level 28.9 MEQ/L Anion Gap 5 MEQ/L Estimat Glomerular Filtration Rate 47 ML/MIN Total Creatine Kinase 71 U/L Troponin I LESS THAN 0.02 NG/ML B-Type Natriuretic Peptide 60 PG/ML Lipase 246 U/L MDM Medical Decision Making Medical Screen Exam Complete: Yes Emergency Medical Condition: Yes Medical Record Reviewed: Yes Interpretation(s) Last Impressions Chest X-Ray 06/01/17 0001 Signed Impressions: Service Date/Time: Thursday, June 01, 2017 00:08 - CONCLUSION: 1. Cardiomegaly. Subsegmental atelectasis both bases. Nils Marvin MD Differential Diagnosis Acute coronary syndrome, versus congestive heart failure exacerbation, versus COPD exacerbation, versus acid reflux Narrative Course During the course of the patients emergency department visit, the patients history, examination, and differential diagnosis were reviewed with the patient. The patient had IV access obtained and blood work sent for analysis. The patient was placed on a monitoring specialist with oximetry and blood pressure monitoring. An ECG was done on arrival. The patient's ECG reveals a sinus rhythm with occasional supraventricular premature complexes, peak T waves are noted, QRS duration is 87 ms, QTC 375. No acute ST segment elevation or depression is noted. The patient was initially provided an additional 162 mg of aspirin by mouth, nitroglycerin 1 inch the chest wall. The patient was also provided a DuoNeb 1. The patients laboratory studies were reviewed and remarkable for white count of 15, hemoglobin 13, platelets 180 with 86.5 neutrophils. The patient's elevated white count could be related to the patient's recent bronchitis and also current placement on steroid. CMP is remarkable for potassium of 5.5, BUN 35, creatinine 1.43, glucose 177, initial set of cardiac enzymes are negative, BNP 20, lipase 246. PT 10.1, PTT 25. Radiology studies were reviewed and remarkable for a chest x-ray that shows cardiomegaly, subsegmental atelectasis at both bases, no other acute abnormality. The patients results were discussed with the patient, including the plan of care. I explained that further testing and/ or monitoring is indicated based on the patients history, examination, and/ or laboratory findings. Therefore, I recommended admission for additional evaluation. The patient expressed understanding and was agreeable with this plan. The patient was admitted to the hospital in guarded condition and sent to a bed under the care of the [facility] hospitalist group. Physician Communication Physician Communication The patient's case was discussed with Dr. Honeycutt who did agree to admit the patient for further evaluation and treatment at this time. Diagnosis Primary Impression: Chest pain, rule out acute myocardial infarction Additional Impression: Bronchitis Admitting Information Admitting Physician Requests: La Freeman MD Jun 01, 2017 00:22
[2017-06-01 00:30] LABS: INTERNATIONAL NORMALIZED RATIO 0.9 RATIO; PROTHROMBIN TIME - PATIENT 10.1 SEC (9.8-11.6)
[2017-06-01 00:35] LABS: ALT (GPT) 37 U/L (12-78); ANION GAP 5 MEQ/L (5-15); AST (GOT) 18 U/L (15-37); BICARBONATE 28.9 MEQ/L (21.0-32.0); BLOOD UREA NITROGEN 35 MG/DL (7-18); CHLORIDE 104 MEQ/L (98-107); GLOMERULAR FILTRATION RATE 47 ML/MIN (>89); MAGNESIUM 1.8 MG/DL (1.5-2.5); POTASSIUM 5.5 MEQ/L (3.5-5.1); SODIUM (NA) 138 MEQ/L (136-145)
[2017-06-01 00:39] LABS: ALKALINE PHOSPHATASE 86 U/L (45-117); TOTAL BILIRUBIN ADULT 0.3 MG/DL (0.2-1.0)
[2017-06-01 00:41] LABS: CREATINE KINASE 71 U/L (39-308)
[2017-06-01] MEDS ORDERED: RESP: ALBUTEROL 2.5 MG/IPRATROPIUM 0.5 MG NEB (SCH) NEB ONE (00:45)
[2017-06-01] MEDS ORDERED: ASPIRIN 81 MG CHEW TAB CHEW ONE (00:45)
[2017-06-01] MEDS ORDERED: NITROGLYCERIN 2% OINT 1 GM PACKET TOPICAL ONE (00:45)
--- NOTE | 2017-06-01 00:52 | RADRPT ---
EXAM DATE/TIME: 06/01/2017 00:08 [facility] COMPARISON: CHEST SINGLE AP, April 11, 2017, 13:42. INDICATIONS : Short of breath. MEDICAL HISTORY : None. SURGICAL HISTORY : CABG. ENCOUNTER: Initial ACUITY: 1 day PAIN SCORE: 0/10 LOCATION: Bilateral chest FINDINGS: The cardiac silhouette is normal in transverse diameter. Median sternotomy wires are present. There i s subsegmental atelectasis in the both bases. There is no evidence of pneumonia. No pleural effusio ns are identified. CONCLUSION: 1. Cardiomegaly. Subsegmental atelectasis both bases. Nils Marvin MD on June 01, 2017 at 0:50 Board Certified Radiologist. This report was verified electronically.
[2017-06-01] MEDS ORDERED: DEXTROSE 50% IN WATER 50 ML VIAL(D50) IV PUSH PRN (02:15)
[2017-06-01] MEDS ORDERED: ONDANSETRON HCL 4 MG/2 ML VIAL IV PUSH PRN (02:15)
[2017-06-01] MEDS ORDERED: NITROGLYCERIN 2% OINT 1 GM PACKET TOPICAL PRN (02:15)
[2017-06-01] MEDS ORDERED: GLUCAGON 1 MG/ML VIAL OTHER PRN (02:15)
[2017-06-01] MEDS ORDERED: MORPHINE SULFATE 2 MG/ML INJ IV PRN (02:15)
[2017-06-01] MEDS: LOW DOSE INSULIN NOVOLIN REGULAR SUPPLEMENTAL SCALE SQ SCH ×4 (08:00→21:00)
[2017-06-01] MEDS ORDERED: ALBUTEROL SULFATE 90 MCG/ACT HFA 8 GM INHALER INH PRN (08:45)
[2017-06-01] MEDS ORDERED: POTASSIUM CHLORIDE 20 MEQ CONTROLLED RELEASE TAB PO SCH (09:00)
[2017-06-01] MEDS: ASPIRIN 81 MG CHEW TAB PO SCH (09:00)
[2017-06-01] MEDS: BUDESONIDE-FORMOTEROL 80/4.5 MCG INHALER INH SCH ×2 (09:00→22:16)
[2017-06-01] MEDS ORDERED: COENZYME Q10 10 MG PO SCH (09:00)
--- NOTE | 2017-06-01 09:37 | MH ---
cc: LEAH DANIELLE M.D., JAWED DATE OF ADMISSION: 06/01/2017 DATE OF : 1935 REASON FOR ADMISSION Chest pain. HISTORY OF PRESENT ILLNESS The patient is very pleasant 82-year-old male with a significant past medical history of hypertension, diabetes, chronic bronchitis, multiple allergies, coronary artery disease status post bypass grafting and stent placement. The patient is following Dr. Fitzgerald as an outpatient. The patient went to Dr. Fitzgerald's office 3 weeks ago and had a stress test done approximately 3-[address] Fitzgerald wants to do a 2-D echo on him and Dr. Fitzgerald last time told him that he is doing okay. Yesterday he started having chest pain on and off. It was moderate in intensity, just slightly left of center in the chest. It is associated with slight pressure in the left side too. There are no other associated symptoms. He came to the ER and was evaluated by the ER physician. Because of the angina which questionably was stable type, the patient was recommended admission. At present the patient is seen in his room and he has no chest pain, feeling okay. Denies any other associated symptoms. Denies any shortness of breath, palpitations, diaphoresis. He has no diarrhea, nausea or vomiting. No dizziness. PAST MEDICAL HISTORY 1. Hypertension. 2. Diabetes. 3. CAD status post CABG. 4. COPD with chronic bronchitis. 5. Hyperlipidemia. 6. History of aspergillosis in the past. 7. History of congestive heart failure. 8. History of prostate cancer. 9. Peripheral neuropathy 10. Chronic ulcer in the right big toe which is healing. MEDICATIONS Medications are reviewed. Please see EMR. ALLERGIES The patient has a long list of allergies includin. SULFA. 2. CEFTAROLINE. 3. CEFEPIME. 4. CEFTRIAXONE. 5. CHLORPHENIRAMINE. 6. DIATRIZOATE. 7. DOXYCYCLINE. 8. GADOBENIC ACID. 9. GADODIAMIDE. 10. GADOTERIDOL. 11. HYDROXYZINE. 12. IODIXANOL 13. IOHEXOL. 14. LEVOFLOXACIN. 15. MIDAZOLAM. 16. PENICILLIN. SOCIAL HISTORY The patient does not smoke, drink or do any drugs. REVIEW OF SYSTEMS As described above in the history of present illness, otherwise negative for 10 systems. PHYSICAL EXAMINATION GENERAL: The patient is alert and oriented x3, well-built, well-nourished, appropriate for age and condition, sitting on the bed without any apparent distress. VITAL SIGNS: The patient is afebrile, pulse 62, respiratory rate 18, blood pressure 133/65, pulse ox 95% on room air. HEENT: Head is atraumatic, normocephalic. Negative conjunctival injection. No icterus. Mouth unremarkable. NECK: Supple. No increased JVD. Negative thyromegaly. Central trachea. LUNGS: Clear to auscultation. HEART: S1 and S2 audible. Unable to hear any S3 gallop. ABDOMEN: Soft. No organomegaly. Positive bowel sounds. EXTREMITIES: No cyanosis or pedal edema appreciated. There is a positive chronic ulcer approximately less than 4 mm, superficial type, at the base of the big toe, almost healed. SKIN: Warm and dry and as described above. PSYCHIATRIC: Appropriate mood and affect. NEUROLOGIC: Grossly intact. LABORATORY WBC 15. Hemoglobin, hematocrit and platelet count within normal limits. Potassium 5.5, BUN 35, creatinine 1.43, random glucose 177. Troponin 0.02. PT, INR and APTT within normal limits. IMAGING Chest x-ray shows cardiomegaly, subsegmental atelectasis at both basis. EKG EKG shows sinus rhythm, rate 60 beats per minute, with tall T-waves. ASSESSMENT 1. Chest pain, angina, rule out [place]. 2. CAD status post CABG. 3. Diabetes uncontrolled. 4. Hypertension. 5. Chronic toe ulcer healing. 6. Hyperlipidemia. 7. Chronic bronchitis. 8. History of congestive heart failure. 9. History of prostate cancer. 10. History of COPD. 11. History of aspergillosis in the past. 12. Hyperkalemia. PLAN 1. Admit to the floor as observation. 2. Nitro paste. 3. Aspirin. 4. Sliding scale insulin coverage. 5. Continue home medication as indicated. 6. Cardiology consult. 7. Monitor potassium. Hold potassium medication from home. 8. Serial troponin. 9. Telemetry monitoring. 10.2-D echo. 11.Condition discussed with the patient. Condition guarded. 12.Further recommendations to follow as per patient's progress. Hannah Honeycutt MD JP/KAREN /8:50 AM /9:03 AM
[2017-06-01] MEDS: predniSONE 5 MG TAB PO SCH (10:38)
[2017-06-01] MEDS: LISINOPRIL 10 MG TAB PO SCH (10:38)
[2017-06-01] MEDS: FUROSEMIDE 40 MG TAB PO SCH (10:38)
[2017-06-01] MEDS: GABAPENTIN 100 MG CAP PO SCH ×3 (10:38→18:00)
--- NOTE | 2017-06-01 13:55 | EKG ---
Date Performed: 06/01/2017 Time Performed: 00:01:38 PTAGE: 82 years EKG: Sinus rhythm WITH OCCASIONAL SUPRAVENTRICULAR PREMATURE COMPLEXES TALL T-WAVES, SUGGESTS HYPERKALEMIA ABNORMAL EC G PREVIOUS TRACING : 04/08/2017 09.57 DOCTOR: Jossue Juarez Interpretating Date/Time 06/01/2017 13:46:00
[2017-06-01] MEDS ORDERED: INSULIN GLARGINE 1,000 UNITS/10 ML VIAL SQ SCH (21:00)
[2017-06-01] MEDS ORDERED: TAMSULOSIN HCL 0.4 MG CAP PO SCH (21:00)
[2017-06-01] MEDS ORDERED: ATORVASTATIN 40 MG TAB PO SCH (21:00)
[2017-06-02 00:15] VITALS: PULSE 71
[2017-06-02 03:40] VITALS: PULSE 63
[2017-06-02 05:09] VITALS: BP 146/56; PULSE 72; RESP 18; TEMP 97.6; O2SAT 94
[2017-06-02] MEDS ORDERED: INSULIN DETEMIR 100 UNITS/ML VIAL SQ SCH (07:00)
[2017-06-02 08:00] VITALS: PULSE 65
[2017-06-02 08:07] VITALS: BP 93/51; PULSE 78; RESP 22; TEMP 97.7; O2SAT 92
--- NOTE | 2017-06-02 08:19 | HHI.PR ---
Subjective Remarks pt has no complaint wants to go home ROS for 12 point system is unremarkable Objective Objective Results - Vital Signs Date Time Temp Pulse Resp B/P (MAP) Pulse Ox O2 Delivery O2 Flow Rate FiO2 06/02/17 08:07 97.7 78 22 93/51 (65) 92 06/02/17 05:09 97.6 72 18 146/56 (86) 94 06/02/17 03:40 63 06/02/17 00:15 71 06/01/17 23:20 98.2 58 18 145/60 (88) 99 06/01/17 20:07 98.2 66 18 132/67 (88) 98 06/01/17 20:00 71 06/01/17 16:17 98.0 68 22 135/61 (85) 95 06/01/17 11:36 98.2 67 24 133/60 (84) 96 06/01/17 08:33 97.7 60 24 143/66 (91) 94 Result Diagram: 06/01/17 0000 06/01/17 1405 Other Results Laboratory Tests Test 06/01/17 10:29 06/01/17 14:05 06/01/17 20:13 Troponin I LESS THAN 0.02 LESS THAN 0.02 LESS THAN 0.02 Potassium Level 4.3 Physical Exam Physical Exam GENERAL: The patient is alert and oriented x3, well-built, well-nourished, appropriate for age and condition, sitting on the bed without any apparent distress. VITAL SIGNS: reviewed HEENT: Head is atraumatic, normocephalic. Negative conjunctival injection. No icterus. Mouth unremarkable. NECK: Supple. No increased JVD. Negative thyromegaly. Central trachea. LUNGS: Clear to auscultation. HEART: S1 and S2 audible. Unable to hear any S3 gallop. ABDOMEN: Soft. No organomegaly. Positive bowel sounds. EXTREMITIES: No cyanosis or pedal edema appreciated. There is a positive chronic ulcer approximately less than 4 mm, superficial type, at the base of the big toe, almost healed. SKIN: Warm and dry and as described above. PSYCHIATRIC: Appropriate mood and affect. NEUROLOGIC: Grossly intact. A/P Assessment and Plan 1. Chest pain atypical , MD ruled out. 2. CAD status post CABG. 3. Diabetes uncontrolled. 4. Hypertension. 5. Chronic toe ulcer healing. 6. Hyperlipidemia. 7. Chronic bronchitis. 8. History of congestive heart failure. 9. History of prostate cancer. 10. History of COPD. 11. History of aspergillosis in the past. 12. Hyperkalemia. PLAN 1. seen in observation unit. as per pt he walking around without any problem 2. dc Nitro paste. 3. Aspirin. 4. Sliding scale insulin coverage. 5. Continue home medication as indicated. 6. awaiting Cardiology consult. 7. wnl K. 8. neg Serial troponin. 9. Telemetry monitoring reviwed 10.2-D echo, can be done as outpt 11.Condition discussed with the patient. Condition stable and improved. 12.If ok with cardiology may dc home to follow pcp and cardiology as outpt. pt wants to go home and follow them Hannah Honeycutt MD Jun 02, 2017 08:19
[2017-06-02] MEDS: GABAPENTIN 100 MG CAP PO SCH (08:37)
[2017-06-02] MEDS: FUROSEMIDE 40 MG TAB PO SCH (08:37)
[2017-06-02] MEDS: ASPIRIN 81 MG CHEW TAB PO SCH (08:37)
[2017-06-02] MEDS: LISINOPRIL 10 MG TAB PO SCH (08:37)
[2017-06-02] MEDS: predniSONE 5 MG TAB PO SCH (08:37)
[2017-06-02] MEDS: LOW DOSE INSULIN NOVOLIN REGULAR SUPPLEMENTAL SCALE SQ SCH (08:46)
[2017-06-02] MEDS ORDERED: PLAV75TA29 PO (10:25)
[2017-06-02] MEDS ORDERED: NITROGLYCERIN 2% OINT 1 GM PACKET TOP SCH (12:00)
[2017-06-14] MEDS ORDERED: PRED20 PO (00:56)
[2017-06-14] MEDS ORDERED: AZIT250T3 PO (00:56)
== END 2017-06-02 11:59 | disposition home or self-care (01) ==
LOC: NEPE 23:46 → NEDA 06-01 01:41 → UNDOADMIN 06-01 01:41 → NEDA 06-01 01:45 → INTOOBSV 06-01 01:45 → NEPHCDU 06-01 03:28
PROVIDERS: ADMIT Specialist; ATTEND Specialist
DX: I25.119 Atherosclerotic heart disease of native coronary artery with unspecified angina pectoris (principal); J42 Unspecified chronic bronchitis; I25.2 Old myocardial infarction; R94.31 Abnormal electrocardiogram [ECG] [EKG]; I11.0 Hypertensive heart disease with heart failure; I50.9 Heart failure, unspecified; E11.65 Type 2 diabetes mellitus with hyperglycemia; E11.621 Type 2 diabetes mellitus with foot ulcer; L97.509 Non-pressure chronic ulcer of other part of unspecified foot with unspecified severity; E78.5 Hyperlipidemia, unspecified; J44.9 Chronic obstructive pulmonary disease, unspecified; E87.5 Hyperkalemia; E11.42 Type 2 diabetes mellitus with diabetic polyneuropathy; Z85.46 Personal history of malignant neoplasm of prostate; Z79.82 Long term (current) use of aspirin; Z79.4 Long term (current) use of insulin; Z95.1 Presence of aortocoronary bypass graft
CPT/HCPCS: 71010; 80053; 82550; 82948; 83690; 83735; 83880; 84132; 84484; 85025; 85610; 85730; 93005; 94664; 96372; 99285; G0378; J1815; J7512

== ENCOUNTER 2017-06-14 16:17 | Emergency (ER) | payer MEDICARE ==
[~2017-06-14] VITALS: Ht 170.2 cm; Wt 70.0 kg
[~2017-06-14 16:17] MED LIST changes: -ASPI-110 PO; +ASPI1TAB57 PO; +ATOR40TA16 PO; +PLAV75TA29 PO; +POTA-163 PO; -POTA-243 PO; -PRED1 PO; -PRED10 PO; +PRED20 PO; +PRED5TAB PO
[2017-06-14 16:20] VITALS: BP 137/64; PULSE 77; RESP 16; TEMP 97.8; O2SAT 95
--- NOTE | 2017-06-14 16:57 | PD ---
Physical Exam Date Seen by Provider: Jun 14, 2017 Time Seen by Provider: 16:56 Narrative 82-year-old white male presents to emergency department with complaints of severe diarrhea after starting a new antibiotic for bronchitis today. Patient states that he called his doctor and hopes to change his medications but he was referred to the ER. Vital signs reviewed. Pt waiting for bed placement. Data Data Last Documented VS Vital Signs Date Time Temp Pulse Resp B/P (MAP) Pulse Ox O2 Delivery O2 Flow Rate FiO2 06/14/17 16:20 97.8 77 16 137/64 (88) 95 Room Air [facility] Medical Record Reviewed: No Supervised Visit with NUNO: Tanmay Infante Jun 14, 2017 16:57
[2017-06-14] MEDS ORDERED: SODIUM CHLORIDE 0.9% FLUSH 10 ML FLUSH IV FLUSH PRN (18:15)
[2017-06-14] MEDS ORDERED: LANTUS2P SQ (18:40)
--- NOTE | 2017-06-14 18:41 | PD ---
HPI Chief Complaint: GI Complaint Time Seen by Provider: 18:04 Travel History International Travel<30 days: No Contact w/Intl Traveler<30days: No Traveled to known affect area: No History of Present Illness HPI 81-year-old male that presents to the ED for evaluation of bronchitis and need for new antibiotic. Per patient she was seen here yesterday and was started on azithromycin as well as prednisone. Patient developed diarrhea starting last night since he started the medication. Patient states that this is new. She does have unfortunately multiple side effects different medications and per patient he always comes later in life. Patient states that he is here mainly to get the prescription changed as he believes that he needs antibiotics to get his bronchitis better. He denies any chest pain or shortness of breath. Per patient his congestion and cough seems to be improved. Per patient he has some burning when he has bowel movements and this is normal for him as he has a hemorrhoid. He states that his discomfort on his diagnosis 3 out of 10 and only when he has a bowel movement. Otherwise unremarkable. Denies any blood. No nausea or vomiting. PFSH Past Medical History Hx Anticoagulant Therapy: Yes (ASA) Arthritis: No Asthma: Yes Atrial Fibrillation: No Blood Disorders: No Heart Rhythm Problems: No Cancer: No Cardiac Catheterization: Yes (X7) Cardiovascular Problems: Yes High Cholesterol: Yes Chemotherapy: No Chest Pain: Yes Congestive Heart Failure: Yes COPD: Yes Cerebrovascular Accident: No Coronary Artery Disease: Yes Diabetes: Yes Patient Takes Glucophage: No Diminished Hearing: No Endocrine: Yes Gastrointestinal Disorders: No GERD: No Glaucoma: No Genitourinary: Yes Headaches: No Hepatitis: No Hiatal Hernia: No Hypertension: Yes Immune Disorder: No Musculoskeletal: Yes Neurologic: No Psychiatric: No Reproductive: No Respiratory: Yes (BRONCHITIS) Integumentary: Yes (rt great toe) Migraines: No Myocardial Infarction: Yes (X 3-4) Pancreatitis: Yes Pneumonia: Yes (Recent) Radiation Therapy: No Seizures: No Sleep Apnea: No Ulcer: Yes (right great toe) Past Surgical History Abdominal Surgery: No AICD: No Appendectomy: No Arteriovenous Shunt: No Cardiac Surgery: Yes (TRIPLE BYPASS) Cholecystectomy: No Coronary Artery Bypass Graft: Yes Coronary Stent: Yes (X1) Ear Surgery: No Endocrine Surgery: No Eye Surgery: Yes (CATARACT SURGERY) Genitourinary Surgery: No Gynecologic Surgery: No Insulin Pump: No Joint Replacement: No Oral Surgery: No Pacemaker: No Thoracic Surgery: No Tonsillectomy: Yes Other Surgery: Yes Social History Alcohol Use: No Tobacco Use: No Substance Use: No Allergies-Medications (Allergen,Severity, Reaction): Coded Allergies: Sulfa (Sulfonamide Antibiotics) (Verified Allergy, Severe, 06/01/17) cefepime (Verified Allergy, Severe, 06/01/17) ceftaroline fosamil (Verified Allergy, Severe, 06/01/17) ceftriaxone (Verified Allergy, Severe, 06/01/17) chlorpheniramine (Verified Allergy, Severe, "MAKES ME FEEL SICK, 06/01/17) diatrizoate meglumine (Verified Allergy, Severe, 06/01/17) doxycycline (Verified Allergy, Severe, 06/01/17) gadobenic acid (Verified Allergy, Severe, 06/01/17) gadodiamide (Verified Allergy, Severe, 06/01/17) gadoteridol (Verified Allergy, Severe, 06/01/17) hydroxyzine (Verified Allergy, Severe, 06/01/17) iodixanol (Verified Allergy, Severe, 06/01/17) iohexol (Verified Allergy, Severe, 06/01/17) levofloxacin (Verified Allergy, Severe, 06/01/17) midazolam (Verified Allergy, Severe, HURT ALL OVER, 06/01/17) penicillin G (Verified Allergy, Severe, RASH,FEVER, 06/01/17) Uncoded Allergies: metopro (Allergy, Severe, 03/26/17) Reported Meds & Prescriptions Reported Meds & Active Scripts Active Azithromycin 250 Mg Tab 250 Mg PO DAILY 4 Days Prednisone 20 Mg Tab 20 Mg PO DAILY Plavix (Clopidogrel Bisulfate) 75 Mg Tab 75 Mg PO DAILY Lasix (Furosemide) 40 Mg Tab 40 Mg PO DAILY Reported Novolog Inj (Insulin Aspart) 1,000 Unit/10 Ml Vial 0 SQ DIRECTED Sliding Scale as directed. Atorvastatin (Atorvastatin Calcium) 40 Mg Tab 40 Mg PO HS Potassium Chloride ER (Potassium Chloride) 20 Meq Tab 20 Meq PO DAILY Prednisone 5 Mg Tab 5 Mg PO DAILY Lantus Inj (Insulin Glargine) 1,000 Unit/10 Ml Vial 15 Units SQ HS Fish Oil ([place]-3 Fatty Acids) 300 Mg Capsule 1,200 Mg PO Coq10 (Coenzyme Q10 (Ubidecarenone)) 30 Mg Cap 10 Mg PO DAILY Lisinopril 10 Mg Tab 10 Mg PO DAILY Tamsulosin (Tamsulosin HCl) 0.4 Mg Cap 0.4 Mg PO HS Symbicort Inh (Budesonide/Formoterol Fumarate) 80-4.5 Mcg/Act Aero 1 Puff INH Q12HR Novolog Inj (Insulin Aspart) 1,000 Unit/10 Ml Vial 0 SQ DIRECTED Sliding Scale as directed. Gabapentin 100 Mg Cap 100 Mg PO TID Aspirin 81 (Aspirin) 81 Mg Tabdr 81 Mg PO DAILY Vitamin C (Ascorbic Acid) 250 Mg Tab 250 Mg PO Ventolin Hfa 18 GM Inh (Albuterol Sulfate) 90 Mcg/Act Aer 2.5 Puff INH Q4-6H PRN Review of Systems Except as stated in HPI: all other systems reviewed are Neg Physical Exam Narrative GENERAL: SKIN: Warm and dry. HEAD: Atraumatic. Normocephalic. EYES: Pupils equal and round. No scleral icterus. No injection or drainage. ENT: No nasal bleeding or discharge. Mucous membranes pink and moist. Tongue is midline. No uvula deviation. NECK: Trachea midline. No JVD. CARDIOVASCULAR: Regular rate and rhythm. No murmurs, S3, S4. RESPIRATORY: No accessory muscle use. Clear to auscultation. Breath sounds equal bilaterally. GASTROINTESTINAL: Abdomen soft, non-tender, nondistended. Hepatic and splenic margins not palpable. MUSCULOSKELETAL: Extremities without clubbing, cyanosis, or edema. No obvious deformities. Full range of motion of the upper and lower extremities bilaterally. 2+ pulses bilaterally. NEUROLOGICAL: Awake and alert. No obvious cranial nerve deficits. Motor grossly within normal limits. Five out of 5 muscle strength in the arms and legs. Normal speech. PSYCHIATRIC: Appropriate mood and affect; insight and judgment normal. Data Data Last Documented VS Vital Signs Date Time Temp Pulse Resp B/P (MAP) Pulse Ox O2 Delivery O2 Flow Rate FiO2 06/14/17 16:20 97.8 77 16 137/64 (88) 95 Room Air Orders Orders Sodium Chloride 0.9% Flush (Ns Flush) (06/14/17 18:15) Ed Discharge Order (06/14/17 18:31) MDM Medical Decision Making Medical Screen Exam Complete: Yes Emergency Medical Condition: Yes Medical Record Reviewed: Yes Differential Diagnosis Medication side effect versus COPD versus pneumonia versus normal exam versus diarrhea Narrative Course 82-year-old male that presents to the ED for evaluation of possible side effect to medication. Patient was properly examined and was found to have no sign of acute distress. Labs were ordered but patient declined stating that he was just here he does not want anymore blood work. Patient has without proper blood work and a completely rule out severe medical disease. At this time and really to this is reasonable as patient can't no multiple records and elevated leukocytosis on his previous evaluation yesterday. Chest x-ray did not show any sign of pneumonia but some chronic changes. Patient has taken azithromycin in the past but has never had a reaction like this. Per patient is also taking prednisone with no issues. Per patient he feels better respiratory-marin but the diarrhea is the only thing that is concerning which is new since starting the antibiotic. He is here only to get the medication change. Unfortunately patient has multiple allergies to different medications. I did children's counselor the patient that this is likely viral and will take some time to get better. I recommend that he continues doing the prednisone and albuterol inhaler. I did prescribe patient a prescription for clindamycin that should cover for any atypical coverage. I did mention to the patient Tylenol 1 him to take it at least for 2-3 days and only if he still does not feel like he is improving like he is already. I do recommend that he speaks to his doctor before he takes his medication as this is the only antibiotic that I can see that he is not allergic to. He agrees and understands this plan. In regards to his diarrhea he states that is improved since she stopped taking the antibiotic. At this time I recommend OTC treatment. If anything worsens she is to come back to the ED. He agrees and understands this plan. He is happy with care. Desirious to go home. Case discussed with my attending Dr. Fowler who agrees with plan. Diagnosis Primary Impression: Medication side effect Qualified Codes: T88.7XXA - Unspecified adverse effect of drug or medicament, initial encounter Patient Instructions: General Instructions Additional Instructions: Use hemorrhoid cream on your buttocks to help with the burning. Drink plenty of fluids. See ED for worsening symptoms. Continue taking the prednisone as prescribed. Discontinue the azithromycin. Follow up with PCP. Take the antibiotic only if you do not feel improved at all in the next 3 days. Med/Other Pt SpecificInfo: Prescription(s) given Disposition: 01 DISCHARGE HOME Condition: Stable Alverto Erazo Jun 14, 2017 18:41
== END 2017-06-14 19:16 | disposition home or self-care (01) ==
LOC: NEPE 16:17
DX: T88.7XXA Unspecified adverse effect of drug or medicament, initial encounter (principal); R19.7 Diarrhea, unspecified; J44.9 Chronic obstructive pulmonary disease, unspecified; E11.9 Type 2 diabetes mellitus without complications; I10 Essential (primary) hypertension; Z79.01 Long term (current) use of anticoagulants
CPT/HCPCS: 99281; J2930

== ENCOUNTER 2017-07-10 15:17 | Emergency (ER) | payer MEDICARE ==
[~2017-07-10] VITALS: Ht 170.2 cm; Wt 70.0 kg
[~2017-07-10 15:17] MED LIST changes: -PRED5TAB PO
[2017-07-10 15:40] VITALS: BP 158/60; PULSE 89; RESP 28; TEMP 98.8; O2SAT 98
[2017-07-10] MEDS ORDERED: SODIUM CHLORIDE 0.9% FLUSH 10 ML FLUSH IVF PRN (15:45)
[2017-07-10 16:31] LABS: BASOPHIL % 0.5 % (0.0-2.0); EOSINOPHIL # 1.9 TH/MM3 (0-0.4); EOSINOPHIL % 22.3 % (0.0-4.0); HEMO FLAGS DIFF FINAL; MEAN CELL VOLUME 90.2 FL (80.0-100.0); MEAN CORPUSCULAR HEMOGLOBIN 30.2 PG (27.0-34.0); MEAN CORPUSCULAR HGB CONC 33.5 % (32.0-36.0); MONO % 7.5 % (0.0-8.0); NEUT % 57.7 % (16.0-70.0); PLATELET COUNT 305 TH/MM3 (150-450); WHITE BLOOD COUNT 8.7 TH/MM3 (4.0-11.0)
[2017-07-10 16:39] LABS: APTT (PATIENT) 26.8 SEC (24.3-30.1)
--- NOTE | 2017-07-10 16:47 | RADRPT ---
EXAM DATE/TIME: 07/10/2017 15:55 [facility] COMPARISON: No previous studies available for comparison. INDICATIONS : Shortness of breath. MEDICAL HISTORY : Congestive heart failure. Cardiovascular disease. Pancreatitis. Diabetes mellitus type 1. SURGICAL HISTORY : CABG. ENCOUNTER: Initial ACUITY: 1 day PAIN SCORE: 0/10 LOCATION: Bilateral chest FINDINGS: A single view of the chest demonstrates linear atelectasis or scarring at the bases. No effusion. No pneumothorax. Previous CABG. CONCLUSION: 1. Minimal atelectasis or scarring at the bases. Postoperative CABG. Tanmay Chavez MD on July 10, 2017 at 16:41 Board Certified Radiologist. This report was verified electronically.
[2017-07-10] MEDS ORDERED: LISI2.5T3 PO (16:50)
[2017-07-10] MEDS ORDERED: CO Q100C9 PO (16:50)
[2017-07-10] MEDS ORDERED: CLAR500T PO (16:50)
[2017-07-10] MEDS ORDERED: GUAI600T34 PO (16:50)
[2017-07-10] MEDS ORDERED: MULTTAB67 PO (16:50)
[2017-07-10] MEDS ORDERED: ASCO100029 PO (16:50)
[2017-07-10 16:57] LABS: ALT (GPT) 29 U/L (12-78); ANION GAP 8 MEQ/L (5-15); AST (GOT) 19 U/L (15-37); BICARBONATE 27.5 MEQ/L (21.0-32.0); BLOOD UREA NITROGEN 30 MG/DL (7-18); CHLORIDE 100 MEQ/L (98-107); GLOMERULAR FILTRATION RATE 44 ML/MIN (>89); POTASSIUM 5.5 MEQ/L (3.5-5.1); SODIUM (NA) 135 MEQ/L (136-145)
[2017-07-10 17:01] LABS: ALKALINE PHOSPHATASE 87 U/L (45-117); TOTAL BILIRUBIN ADULT 0.5 MG/DL (0.2-1.0)
[2017-07-10 17:06] LABS: CREATINE KINASE 74 U/L (39-308)
--- NOTE | 2017-07-10 17:42 | PD ---
HPI Chief Complaint: Respiratory Symptoms Time Seen by Provider: 15:39 Travel History International Travel<30 days: No Contact w/Intl Traveler<30days: No Traveled to known affect area: No History of Present Illness HPI 82 y/o male presents with cough and shortness of breath over the past couple of days. He states he went to an urgent care today and was given an antibiotic. He states that he also has been having swelling in his legs. He denies any fever, chest pain or other concurrent complaints. He states that he currently is not on a steroid medication. He feels worse when he moves around or lays flat. He denies other modifying factors. Duration is couple of days. He states that he completed his prior course of antibiotic and steroids and was feeling better until recently. PFSH Past Medical History Hx Anticoagulant Therapy: Yes (PLAVIX ) Arthritis: No Asthma: Yes Atrial Fibrillation: No Blood Disorders: No Heart Rhythm Problems: No Cancer: Yes (PROSTATE CANCER ) Cardiac Catheterization: Yes (X7) Cardiovascular Problems: Yes High Cholesterol: Yes Chemotherapy: No Congestive Heart Failure: Yes COPD: Yes Cerebrovascular Accident: No Coronary Artery Disease: Yes Diabetes: Yes Patient Takes Glucophage: Yes Diminished Hearing: No Endocrine: Yes Gastrointestinal Disorders: No GERD: No Glaucoma: No Genitourinary: Yes Headaches: Yes Hepatitis: No Hiatal Hernia: No Hypertension: Yes Immune Disorder: No Musculoskeletal: Yes Neurologic: No Psychiatric: No Reproductive: No Integumentary: Yes (rt great toe) Immunizations Current: Yes Migraines: No Myocardial Infarction: Yes (X 3-4) Pancreatitis: Yes Pneumonia: Yes (Recent) Radiation Therapy: Yes Seizures: No Sleep Apnea: No Ulcer: Yes (right great toe) Tetanus Vaccination: Unknown Influenza Vaccination: Yes Past Surgical History Abdominal Surgery: No AICD: No Appendectomy: No Arteriovenous Shunt: No Cardiac Surgery: Yes (TRIPLE BYPASS) Cholecystectomy: No Coronary Artery Bypass Graft: Yes (X 3 ) Coronary Stent: Yes (X1) Ear Surgery: No Endocrine Surgery: No Eye Surgery: Yes (CATARACT SURGERY) Genitourinary Surgery: No Gynecologic Surgery: No Insulin Pump: No Joint Replacement: No Oral Surgery: No Pacemaker: No Thoracic Surgery: No Tonsillectomy: Yes (CHILD ) Other Surgery: Yes Social History Alcohol Use: No Tobacco Use: No Substance Use: No Allergies-Medications (Allergen,Severity, Reaction): Coded Allergies: Sulfa (Sulfonamide Antibiotics) (Verified Allergy, Severe, 06/01/17) cefepime (Verified Allergy, Severe, 06/01/17) ceftaroline fosamil (Verified Allergy, Severe, 06/01/17) ceftriaxone (Verified Allergy, Severe, 06/01/17) chlorpheniramine (Verified Allergy, Severe, "MAKES ME FEEL SICK, 06/01/17) diatrizoate meglumine (Verified Allergy, Severe, 06/01/17) doxycycline (Verified Allergy, Severe, 06/01/17) gadobenic acid (Verified Allergy, Severe, 06/01/17) gadodiamide (Verified Allergy, Severe, 06/01/17) gadoteridol (Verified Allergy, Severe, 06/01/17) hydroxyzine (Verified Allergy, Severe, 06/01/17) iodixanol (Verified Allergy, Severe, 06/01/17) iohexol (Verified Allergy, Severe, 06/01/17) levofloxacin (Verified Allergy, Severe, 06/01/17) midazolam (Verified Allergy, Severe, HURT ALL OVER, 06/01/17) penicillin G (Verified Allergy, Severe, RASH,FEVER, 06/01/17) Uncoded Allergies: metopro (Allergy, Severe, 03/26/17) Reported Meds & Prescriptions Reported Meds & Active Scripts Active Plavix (Clopidogrel Bisulfate) 75 Mg Tab 75 Mg PO DAILY Lasix (Furosemide) 40 Mg Tab 40 Mg PO DAILY Reported Clarithromycin 500 Mg Tab 500 Mg PO BID 10 Days Guaifenesin ER (Guaifenesin) 600 Mg Tab.er.12h 600 Mg PO DAILY Co Q 10 (Coenzyme Q10 (Ubidecarenone)) 100 Mg-5 Unit Cap 100 Mg PO DAILY Multiple Vitamin 1 Tab 2 Tab PO DAILY Lisinopril 2.5 Mg Tab 2.5 Mg PO DAILY Vitamin C (Ascorbic Acid) 1,000 Mg Tablet.er 1,000 Mg PO DAILY Lantus Inj (Insulin Glargine) 100 Unit/Ml Inj 30 Units SQ DAILY PRN Atorvastatin (Atorvastatin Calcium) 40 Mg Tab 40 Mg PO HS Potassium Chloride ER (Potassium Chloride) 20 Meq Tab 20 Meq PO DAILY Lantus Inj (Insulin Glargine) 1,000 Unit/10 Ml Vial 15 Units SQ HS Tamsulosin (Tamsulosin HCl) 0.4 Mg Cap 0.4 Mg PO HS Symbicort Inh (Budesonide/Formoterol Fumarate) 80-4.5 Mcg/Act Aero 1 Puff INH Q12HR Novolog Inj (Insulin Aspart) 1,000 Unit/10 Ml Vial 0 SQ DIRECTED Sliding Scale as directed. Gabapentin 100 Mg Cap 100 Mg PO TID Aspirin 81 (Aspirin) 81 Mg Tabdr 81 Mg PO DAILY Ventolin Hfa 18 GM Inh (Albuterol Sulfate) 90 Mcg/Act Aer 2 Puff INH Q4-6H PRN Review of Systems Except as stated in HPI: all other systems reviewed are Neg Physical Exam Narrative GENERAL: Well-nourished, well-developed patient. SKIN: Warm and dry. HEAD: Normocephalic and atraumatic. EYES: No injection or drainage. ENT: No nasal drainage noted. NECK: Supple, trachea midline. CARDIOVASCULAR: Regular rate and rhythm RESPIRATORY: Breath sounds equal bilaterally. No accessory muscle use. GASTROINTESTINAL: Abdomen soft, non-tender, nondistended. EXTREMITIES: trace edema to bilateral lower extremities NEUROLOGICAL: Awake and alert. moves all extremities and sensory grossly within normal limits. Normal speech. Data Data Last Documented VS Vital Signs Date Time Temp Pulse Resp B/P (MAP) Pulse Ox O2 Delivery O2 Flow Rate FiO2 07/10/17 15:40 98.8 89 28 158/60 (92) 98 07/10/17 15:40 Room Air Orders Orders Complete Blood Count With Diff (07/10/17 15:45) Comprehensive Metabolic Panel (07/10/17 15:45) B-Type Natriuretic Peptide (07/10/17 15:45) Act Partial Throm Time (Ptt) (07/10/17 15:45) Prothrombin Time / Inr (Pt) (07/10/17 15:45) Ckmb (Isoenzyme) Profile (07/10/17 15:45) Troponin I (07/10/17 15:45) Influenzae A/B Antigen (07/10/17 15:45) Iv Access Insert/Monitor (07/10/17 15:45) Electrocardiogram (07/10/17 15:45) Ecg Monitoring (07/10/17 15:45) Oximetry (07/10/17 15:45) Chest, Single Ap (07/10/17 15:45) Sodium Chloride 0.9% Flush (Ns Flush) (07/10/17 15:45) Ed Discharge Order (07/10/17 17:56) Labs Laboratory Tests Test 07/10/17 16:00 White Blood Count 8.7 TH/MM3 Red Blood Count 4.10 MIL/MM3 Hemoglobin 12.4 GM/DL Hematocrit 37.0 % Mean Corpuscular Volume 90.2 FL Mean Corpuscular Hemoglobin 30.2 PG Mean Corpuscular Hemoglobin Concent 33.5 % Red Cell Distribution Width 15.0 % Platelet Count 305 TH/MM3 Mean Platelet Volume 8.3 FL Neutrophils (%) (Auto) 57.7 % Lymphocytes (%) (Auto) 12.0 % Monocytes (%) (Auto) 7.5 % Eosinophils (%) (Auto) 22.3 % Basophils (%) (Auto) 0.5 % Neutrophils # (Auto) 5.0 TH/MM3 Lymphocytes # (Auto) 1.0 TH/MM3 Monocytes # (Auto) 0.7 TH/MM3 Eosinophils # (Auto) 1.9 TH/MM3 Basophils # (Auto) 0.0 TH/MM3 CBC Comment DIFF FINAL Differential Comment Prothrombin Time 11.0 SEC Prothromb Time International Ratio 1.0 RATIO Activated Partial Thromboplast Time 26.8 SEC Blood Urea Nitrogen 30 MG/DL Creatinine 1.52 MG/DL Random Glucose 213 MG/DL Total Protein 7.3 GM/DL Albumin 2.7 GM/DL Calcium Level 8.7 MG/DL Alkaline Phosphatase 87 U/L Aspartate Amino Transf (AST/SGOT) 19 U/L Alanine Aminotransferase (ALT/SGPT) 29 U/L Total Bilirubin 0.5 MG/DL Sodium Level 135 MEQ/L Potassium Level 5.5 MEQ/L Chloride Level 100 MEQ/L Carbon Dioxide Level 27.5 MEQ/L Anion Gap 8 MEQ/L Estimat Glomerular Filtration Rate 44 ML/MIN Total Creatine Kinase 74 U/L Troponin I LESS THAN 0.02 NG/ML B-Type Natriuretic Peptide 37 PG/ML MDM Medical Decision Making Medical Screen Exam Complete: Yes Emergency Medical Condition: Yes Medical Record Reviewed: Yes (h confirmed) Interpretation(s) CBC & BMP Diagram 07/10/17 16:00 Total Protein 7.3, Albumin 2.7 L, Calcium Level 8.7, Alkaline Phosphatase 87, Aspartate Amino Transf (AST/SGOT) 19, Alanine Aminotransferase (ALT/SGPT) 29, Total Bilirubin 0.5 cxr no pneumonia noted Differential Diagnosis Pneumonia, CHF, anemia, renal failure, COPD Narrative Course Will check blood work, chest x-ray, EKG, influenza and reevaluate Patient has no CHF findings on chest x-ray and BNP is normal, patient has no clinical signs of pneumonia and is already on antibiotic, patient is not currently in a significant COPD exacerbation and has normal room air saturation and is without wheezing. Patient will need to continue current treatment and follow closely with primary care physician, Patient denies any new complaints, all questions answered. Patient knows that follow up is incumbent on them and to return to the emergency room immediately if new or worsening symptoms develop. Patient given strict return precautions, vitals reviewed and are normal , agrees to further workup as an outpatient. Diagnosis Primary Impression: Shortness of breath Patient Instructions: General Instructions Additional Instructions: follow with primary tommorrow, return as needed, breathing treatment at home as needed Med/Other Pt SpecificInfo: No Change to Meds Disposition: 01 DISCHARGE HOME Condition: Stable Blanche Armenta MD Jul 10, 2017 17:42
--- NOTE | 2017-07-11 07:09 | EKG ---
Date Performed: 07/10/2017 Time Performed: 16:35:17 PTAGE: 82 years EKG: Sinus rhythm NORMAL ECG PREVIOUS TRACING : 06/13/2017 23.45 Compared to previous tracing, PVCs are no longer present. DOCTOR: Joshua Raza Interpretating Date/Time 07/11/2017 07:07:31
== END 2017-07-10 19:00 | disposition home or self-care (01) ==
LOC: NEPE 15:17
DX: R06.02 Shortness of breath (principal); M79.89 Other specified soft tissue disorders; I11.0 Hypertensive heart disease with heart failure; I50.9 Heart failure, unspecified; I25.2 Old myocardial infarction; E11.9 Type 2 diabetes mellitus without complications; Z79.4 Long term (current) use of insulin
CPT/HCPCS: 71010; 80053; 82550; 83880; 84484; 85025; 85610; 85730; 87804; 93005; 99285

== ENCOUNTER 2017-07-11 09:57 | Emergency (ER) | payer MEDICARE ==
[~2017-07-11 09:57] MED LIST changes: +ASCO100029 PO; -AZIT250T3 PO; +CLAR500T PO; +CO Q100C9 PO; -COQ130CA PO; +GUAI600T34 PO; -LISI10TA3 PO; +LISI2.5T3 PO; +MULTTAB67 PO; -OMEG300C5 PO; -PRED20 PO; -VITA250T3 PO
[2017-07-11 10:01] VITALS: TEMP 98.8
[2017-07-11 10:06] VITALS: BP 143/67; PULSE 89; RESP 16; TEMP 98; O2SAT 99
--- NOTE | 2017-07-11 10:26 | PD ---
HPI Chief Complaint: Respiratory Symptoms Time Seen by Provider: 10:02 Travel History International Travel<30 days: No Contact w/Intl Traveler<30days: No Traveled to known affect area: No History of Present Illness HPI This is a 82-year-old male with history of chronic bronchitis/COPD, CHF, coronary artery disease, presents today with complaints of worsening shortness of breath. The patient states that he was here yesterday and treated with nebulizer treatments. He states at that time they gave him a prescription for azithromycin but no steroids. He states he feels as though he thinks he probably needs steroids. He states that the shortness of breath is severe enough that he had come back today. He denies any fevers, chills. He denies any chest pain, chest pressure. He does report that he is bringing up some yellow phlegm with his cough. PFSH Past Medical History Hx Anticoagulant Therapy: Yes (PLAVIX ) Arthritis: No Asthma: Yes Atrial Fibrillation: No Blood Disorders: No Heart Rhythm Problems: No Cancer: Yes (PROSTATE CANCER ) Cardiac Catheterization: Yes (X7) Cardiovascular Problems: Yes High Cholesterol: Yes Chemotherapy: No Chest Pain: Yes Congestive Heart Failure: Yes COPD: Yes Cerebrovascular Accident: No Coronary Artery Disease: Yes Diabetes: Yes Patient Takes Glucophage: No Diminished Hearing: No Endocrine: Yes Gastrointestinal Disorders: No GERD: No Glaucoma: No Genitourinary: Yes Headaches: Yes Hepatitis: No Hiatal Hernia: No Hypertension: Yes Immune Disorder: No Musculoskeletal: Yes Neurologic: No Psychiatric: No Reproductive: No Respiratory: Yes Integumentary: Yes Immunizations Current: Yes Migraines: No Myocardial Infarction: Yes (X 3-4) Pancreatitis: Yes Pneumonia: Yes (Recent) Radiation Therapy: Yes Seizures: No Sleep Apnea: No Ulcer: Yes Past Surgical History Abdominal Surgery: No AICD: No Appendectomy: No Arteriovenous Shunt: No Cardiac Surgery: Yes (TRIPLE BYPASS) Cholecystectomy: No Coronary Artery Bypass Graft: Yes (X 3 ) Coronary Stent: Yes (X1) Ear Surgery: No Endocrine Surgery: No Eye Surgery: Yes (CATARACT SURGERY) Genitourinary Surgery: No Gynecologic Surgery: No Insulin Pump: No Joint Replacement: No Oral Surgery: No Pacemaker: No Thoracic Surgery: No Tonsillectomy: Yes (CHILD ) Other Surgery: Yes Social History Alcohol Use: No Tobacco Use: No Substance Use: No Allergies-Medications (Allergen,Severity, Reaction): Coded Allergies: Sulfa (Sulfonamide Antibiotics) (Verified Allergy, Severe, 07/11/17) cefepime (Verified Allergy, Severe, 07/11/17) ceftaroline fosamil (Verified Allergy, Severe, 07/11/17) ceftriaxone (Verified Allergy, Severe, 07/11/17) chlorpheniramine (Verified Allergy, Severe, "MAKES ME FEEL SICK, 07/11/17) diatrizoate meglumine (Verified Allergy, Severe, 07/11/17) doxycycline (Verified Allergy, Severe, 07/11/17) gadobenic acid (Verified Allergy, Severe, 07/11/17) gadodiamide (Verified Allergy, Severe, 07/11/17) gadoteridol (Verified Allergy, Severe, 07/11/17) hydroxyzine (Verified Allergy, Severe, 07/11/17) iodixanol (Verified Allergy, Severe, 07/11/17) iohexol (Verified Allergy, Severe, 07/11/17) levofloxacin (Verified Allergy, Severe, 07/11/17) midazolam (Verified Allergy, Severe, HURT ALL OVER, 07/11/17) penicillin G (Verified Allergy, Severe, RASH,FEVER, 07/11/17) Uncoded Allergies: metopro (Allergy, Severe, 03/26/17) Reported Meds & Prescriptions Reported Meds & Active Scripts Active Plavix (Clopidogrel Bisulfate) 75 Mg Tab 75 Mg PO DAILY Lasix (Furosemide) 40 Mg Tab 40 Mg PO DAILY Reported Clarithromycin 500 Mg Tab 500 Mg PO BID 10 Days Guaifenesin ER (Guaifenesin) 600 Mg Tab.er.12h 600 Mg PO DAILY Co Q 10 (Coenzyme Q10 (Ubidecarenone)) 100 Mg-5 Unit Cap 100 Mg PO DAILY Multiple Vitamin 1 Tab 2 Tab PO DAILY Lisinopril 2.5 Mg Tab 2.5 Mg PO DAILY Vitamin C (Ascorbic Acid) 1,000 Mg Tablet.er 1,000 Mg PO DAILY Lantus Inj (Insulin Glargine) 100 Unit/Ml Inj 30 Units SQ DAILY PRN Atorvastatin (Atorvastatin Calcium) 40 Mg Tab 40 Mg PO HS Potassium Chloride ER (Potassium Chloride) 20 Meq Tab 20 Meq PO DAILY Lantus Inj (Insulin Glargine) 1,000 Unit/10 Ml Vial 15 Units SQ HS Tamsulosin (Tamsulosin HCl) 0.4 Mg Cap 0.4 Mg PO HS Symbicort Inh (Budesonide/Formoterol Fumarate) 80-4.5 Mcg/Act Aero 1 Puff INH Q12HR Novolog Inj (Insulin Aspart) 1,000 Unit/10 Ml Vial 0 SQ DIRECTED Sliding Scale as directed. Gabapentin 100 Mg Cap 100 Mg PO TID Aspirin 81 (Aspirin) 81 Mg Tabdr 81 Mg PO DAILY Ventolin Hfa 18 GM Inh (Albuterol Sulfate) 90 Mcg/Act Aer 2 Puff INH Q4-6H PRN Review of Systems Except as stated in HPI: all other systems reviewed are Neg General / Constitutional: No: Fever, Chills HENT: No: Headaches, Lightheadedness, Neck Pain Cardiovascular: No: Chest Pain or Discomfort, Palpitations Respiratory: Positive: Cough (with yellow phlegm), Shortness of Breath, Wheezing Gastrointestinal: No: Nausea, Vomiting, Abdominal Pain Genitourinary: No: Dysuria, Decreased Urinary Output Musculoskeletal: Positive: Edema (trace edema bilateral lower extremities), No : Weakness, Pain Neurologic: No: Weakness, Dizziness, Headache Physical Exam Narrative GENERAL: Well-nourished, well-developed patient. SKIN: Focused skin assessment warm/dry. HEAD: Normocephalic/atraumatic. EYES: No scleral icterus. No injection or drainage. NECK: Supple, trachea midline. CARDIOVASCULAR: Regular rate and rhythm without murmurs, gallops, or rubs. RESPIRATORY: Breath sounds equal in the upper airways. Decreased breath sounds with wheezing in the bilateral lower airways. No Rales appreciated. GASTROINTESTINAL: Abdomen soft, non-tender, nondistended. MUSCULOSKELETAL: No cyanosis, trace edema bilateral feet. NEUROLOGICAL: Awake and alert. Cranial nerves II through XII intact. Motor grossly within normal limits. Five out of 5 muscle strength in all muscle groups. Normal speech. Data Data Last Documented VS Vital Signs Date Time Temp Pulse Resp B/P (MAP) Pulse Ox O2 Delivery O2 Flow Rate FiO2 07/11/17 10:42 99 Nasal Cannula 3.00 07/11/17 10:42 75 18 143/67 (92) 07/11/17 10:06 98.0 Orders Orders Complete Blood Count With Diff (07/11/17 10:16) Comprehensive Metabolic Panel (07/11/17 10:16) B-Type Natriuretic Peptide (07/11/17 10:16) Act Partial Throm Time (Ptt) (07/11/17 10:16) Prothrombin Time / Inr (Pt) (07/11/17 10:16) Ckmb (Isoenzyme) Profile (07/11/17 10:16) Troponin I (07/11/17 10:16) Arterial Blood Gas (Abg) (07/11/17 10:16) Urinalysis - C+S If Indicated (07/11/17 10:16) Iv Access Insert/Monitor (07/11/17 10:16) Electrocardiogram (07/11/17 10:16) Ecg Monitoring (07/11/17 10:16) Oximetry (07/11/17 10:16) Oxygen Administration (07/11/17 10:16) Sodium Chloride 0.9% Flush (Ns Flush) (07/11/17 10:30) Methylprednisolone So Succ Inj (Solumedr (07/11/17 10:30) Albuterol-Ipratropium Neb (Duoneb Neb) (07/11/17 10:30) Albuterol Neb (Albuterol Neb) (07/11/17 10:30) Labs Laboratory Tests Test 07/11/17 10:15 07/11/17 10:34 07/11/17 12:34 White Blood Count 9.2 TH/MM3 Red Blood Count 4.07 MIL/MM3 Hemoglobin 12.7 GM/DL Hematocrit 36.8 % Mean Corpuscular Volume 90.4 FL Mean Corpuscular Hemoglobin 31.3 PG Mean Corpuscular Hemoglobin Concent 34.6 % Red Cell Distribution Width 14.8 % Platelet Count 328 TH/MM3 Mean Platelet Volume 8.3 FL Neutrophils (%) (Auto) 50.9 % Lymphocytes (%) (Auto) 14.0 % Monocytes (%) (Auto) 10.2 % Eosinophils (%) (Auto) 24.0 % Basophils (%) (Auto) 0.9 % Neutrophils # (Auto) 4.7 TH/MM3 Lymphocytes # (Auto) 1.3 TH/MM3 Monocytes # (Auto) 0.9 TH/MM3 Eosinophils # (Auto) 2.2 TH/MM3 Basophils # (Auto) 0.1 TH/MM3 CBC Comment DIFF FINAL Differential Comment Prothrombin Time 10.8 SEC Prothromb Time International Ratio 1.0 RATIO Activated Partial Thromboplast Time 28.4 SEC Blood Urea Nitrogen 29 MG/DL Creatinine 1.42 MG/DL Random Glucose 149 MG/DL Total Protein 7.4 GM/DL Albumin 2.8 GM/DL Calcium Level 8.9 MG/DL Alkaline Phosphatase 92 U/L Aspartate Amino Transf (AST/SGOT) 20 U/L Alanine Aminotransferase (ALT/SGPT) 25 U/L Total Bilirubin 0.6 MG/DL Sodium Level 134 MEQ/L Potassium Level 4.8 MEQ/L Chloride Level 98 MEQ/L Carbon Dioxide Level 28.7 MEQ/L Anion Gap 7 MEQ/L Estimat Glomerular Filtration Rate 48 ML/MIN Total Creatine Kinase 66 U/L Troponin I LESS THAN 0.02 NG/ML B-Type Natriuretic Peptide 27 PG/ML Blood Gas Puncture Site RT RADIAL Blood Gas Patient Temperature 37.0 Blood Gas HCO3 26 mmol/L Blood Gas Base Excess 2.1 mmol/L Blood Gas Oxygen Saturation 97 % Arterial Blood pH 7.44 Arterial Blood Partial Pressure CO2 39 mmHg Arterial Blood Partial Pressure O2 106 mmHG Arterial Blood Oxygen Content 17.4 Vol % Arterial Blood Carboxyhemoglobin 1.1 % Arterial Blood Methemoglobin 0.5 % Blood Gas Hemoglobin 12.7 G/DL Oxygen Delivery Device NASAL CANNULA Blood Gas Liter Flow 3 L/M Urine Color LIGHT-YELLOW Urine Turbidity CLEAR Urine pH 5.5 Urine Specific [place] 1.006 Urine Protein NEG mg/dL Urine Glucose (UA) NEG mg/dL Urine Ketones NEG mg/dL Urine Occult Blood NEG Urine Nitrite NEG Urine Bilirubin NEG Urine Urobilinogen LESS THAN 2.0 MG/DL Urine Leukocyte Esterase NEG Urine RBC LESS THAN 1 /hpf Urine WBC 1 /hpf Microscopic Urinalysis Comment CULT NOT INDICATED MDM Medical Decision Making Medical Screen Exam Complete: Yes Emergency Medical Condition: Yes Differential Diagnosis COPD versus pneumonia versus CHF Narrative Course 82-year-old male with a history of COPD, diabetes mellitus, presents here today with my to shortness of breath. The patient was seen yesterday for bronchitis. At that time he was not given steroids however was given nebulizer treatment and antibiotics for discharge. He has been given 125 mg of Solu-Medrol here in the emergency department. He's also been given 3 nebulizer treatments, first with Atrovent. He states he feels much improved. The patient will be discharged and have [facility] called in to his pharmacy. He also prednisone 40 mg daily 5 days called in to his pharmacy. Diagnosis Primary Impression: COPD exacerbation Additional Impression: diabetes mellitus Referrals: Lara Sanders MD Additional Instructions: Your prescriptions for Duoneb and prednisone were called into your pharmacy. Disposition: 01 DISCHARGE HOME Condition: Stable Fortunato Schaefer MD Jul 11, 2017 10:26
[2017-07-11] MEDS: RESP: ALBUTEROL 2.5 MG/IPRATROPIUM 0.5 MG NEB (SCH) INH ONE ×2 (10:30→10:56)
[2017-07-11] MEDS ORDERED: methylPREDNISolone SOD SUCC 125 MG/2 ML VIAL IV PUSH ONE (10:30)
[2017-07-11] MEDS ORDERED: SODIUM CHLORIDE 0.9% FLUSH 10 ML FLUSH IVF PRN (10:30)
[2017-07-11 10:42] VITALS: BP 143/67; PULSE 75; RESP 18; O2SAT 100
[2017-07-11 10:44] LABS: BLOOD GAS BASE EXCESS 2.1 mmol/L (-2-2); BLOOD GAS CARBOXYHEMOGLOBIN 1.1 % (0-4); BLOOD GAS HCO3 26 mmol/L (22-26); BLOOD GAS METHEMOGLOBIN 0.5 % (0-2); BLOOD GAS O2 HGB SATURATION 97 % (90-100); BLOOD GAS OXYGEN CONTENT 17.4 Vol % (12.0-20.0); BLOOD GAS PCO2 39 mmHg (38-42); BLOOD GAS PO2 106 mmHG (61-120); BLOOD GAS TOTAL HGB 12.7 G/DL (12.0-16.0); CRITICAL VALUE NO; DRAW SITE RT RADIAL; LITER FLOW 3 L/M; NUMBER OF ARTERIAL PUNCTURES 1; OXYGEN DEVICE NASAL CANNULA; STAT YES; ULNAR PULSE PRESENT
[2017-07-11 10:48] LABS: AUTOMATED NEUTROPHIL # 4.7 TH/MM3 (1.8-7.7); BASOPHIL # 0.1 TH/MM3 (0-0.2); BASOPHIL % 0.9 % (0.0-2.0); EOSINOPHIL # 2.2 TH/MM3 (0-0.4); HEMATOCRIT 36.8 % (39.0-51.0); HEMO FLAGS DIFF FINAL; LYMPHOCYTE # 1.3 TH/MM3 (1.0-4.8); MEAN CELL VOLUME 90.4 FL (80.0-100.0); MEAN CORPUSCULAR HEMOGLOBIN 31.3 PG (27.0-34.0); MEAN CORPUSCULAR HGB CONC 34.6 % (32.0-36.0); MONO % 10.2 % (0.0-8.0); NEUT % 50.9 % (16.0-70.0); PLATELET COUNT 328 TH/MM3 (150-450); RED BLOOD COUNT 4.07 MIL/MM3 (4.50-5.90); RED CELL DISTRIBUTION WIDTH 14.8 % (11.6-17.2); WHITE BLOOD COUNT 9.2 TH/MM3 (4.0-11.0)
[2017-07-11] MEDS: RESP: ALBUTEROL 2.5 MG/3 ML NEB (SCH) INH ×2 (10:55→10:56)
[2017-07-11 10:57] LABS: APTT (PATIENT) 28.4 SEC (24.3-30.1); PROTHROMBIN TIME - PATIENT 10.8 SEC (9.8-11.6)
[2017-07-11 11:05] LABS: ALT (GPT) 25 U/L (12-78); ANION GAP 7 MEQ/L (5-15); AST (GOT) 20 U/L (15-37); BICARBONATE 28.7 MEQ/L (21.0-32.0); BLOOD UREA NITROGEN 29 MG/DL (7-18); CHLORIDE 98 MEQ/L (98-107); GLOMERULAR FILTRATION RATE 48 ML/MIN (>89); POTASSIUM 4.8 MEQ/L (3.5-5.1); SODIUM (NA) 134 MEQ/L (136-145)
[2017-07-11 11:12] LABS: ALKALINE PHOSPHATASE 92 U/L (45-117); TOTAL BILIRUBIN ADULT 0.6 MG/DL (0.2-1.0)
[2017-07-11 11:14] LABS: CREATINE KINASE 66 U/L (39-308)
[2017-07-11 13:00] LABS: BLOOD, URINE NEG (NEG); GLUCOSE,URINE NEG (NEG); KETONE, URINE NEG (NEG); NITRITE,URINE NEG (NEG); PH, URINE 5.5 (5.0-8.5); URINE COLOR LIGHT-YELLOW (YELLW/STRAW)
[2017-07-11 13:01] LABS: COMMENT (UR) CULT NOT INDICATED; CULTURE IF INDICATED CULT NOT INDICATED
--- NOTE | 2017-07-12 17:41 | EKG ---
Date Performed: 07/11/2017 Time Performed: 11:37:07 PTAGE: 82 years EKG: Sinus rhythm Since previous tracing, no significant change noted NORMAL ECG PREVIOUS TRACING : 07/10/2017 16.35 DOCTOR: Danika Navarro Interpretating Date/Time 07/12/2017 17:40:59
== END 2017-07-11 15:02 | disposition home or self-care (01) ==
LOC: NEPE 09:57
DX: J44.1 Chronic obstructive pulmonary disease with (acute) exacerbation (principal); E11.9 Type 2 diabetes mellitus without complications; I11.0 Hypertensive heart disease with heart failure; I50.9 Heart failure, unspecified; E78.00 Pure hypercholesterolemia, unspecified; I25.10 Atherosclerotic heart disease of native coronary artery without angina pectoris; I25.2 Old myocardial infarction; Z79.02 Long term (current) use of antithrombotics/antiplatelets; Z87.19 Personal history of other diseases of the digestive system
CPT/HCPCS: 36600; 80053; 81001; 82550; 82805; 83880; 84484; 85025; 85610; 85730; 93005; 94640; 94664; 96374; 99284; J2930; J7613

== ENCOUNTER 2017-07-28 17:56 | Observation (INO) | payer MEDICARE ==
[2017-07-28] VITALS (7 sets, daily range): BP systolic 126–153; BP diastolic 60–75; PULSE 78–109; RESP 16–18; TEMP 97.6–98; O2SAT 94–98
[~2017-07-28] VITALS: Ht 170.2 cm; Wt 68.0 kg
[2017-07-28] MEDS ORDERED: IPRAAER INH (18:21)
[2017-07-28] MEDS ORDERED: PRED20 PO (18:21)
[2017-07-28] MEDS ORDERED: predniSONE 20 MG TAB PO ONE (18:45)
[2017-07-28] MEDS ORDERED: SODIUM CHLORIDE 0.9% FLUSH 10 ML FLUSH IVF PRN (19:00)
[2017-07-28 19:25] LABS: AUTOMATED NEUTROPHIL # 6.2 TH/MM3 (1.8-7.7); BASOPHIL # 0.1 TH/MM3 (0-0.2); BASOPHIL % 0.8 % (0.0-2.0); EOSINOPHIL # 1.2 TH/MM3 (0-0.4); EOSINOPHIL % 13.3 % (0.0-4.0); HEMATOCRIT 38.7 % (39.0-51.0); HEMO FLAGS DIFF FINAL; LYMPH % 10.9 % (9.0-44.0); MEAN CELL VOLUME 89.6 FL (80.0-100.0); MEAN CORPUSCULAR HEMOGLOBIN 30.4 PG (27.0-34.0); MEAN CORPUSCULAR HGB CONC 33.9 % (32.0-36.0); MONO % 6.5 % (0.0-8.0); NEUT % 68.5 % (16.0-70.0); PLATELET COUNT 236 TH/MM3 (150-450); RED BLOOD COUNT 4.31 MIL/MM3 (4.50-5.90); RED CELL DISTRIBUTION WIDTH 15.2 % (11.6-17.2); WHITE BLOOD COUNT 9.1 TH/MM3 (4.0-11.0)
--- NOTE | 2017-07-28 19:35 | RADRPT ---
EXAM DATE/TIME: 07/28/2017 19:15 [facility] COMPARISON: No previous studies available for comparison. INDICATIONS : Chest pain MEDICAL HISTORY : Congestive heart failure. Cardiovascular disease. Pancreatitis. Diabetes mellitus type 1. SURGICAL HISTORY : CABG. ENCOUNTER: Initial ACUITY: 2 weeks PAIN SCORE: 0/10 LOCATION: Bilateral chest FINDINGS: There is subsegmental airspace disease at the bases. No significant effusion. No pneumothorax. Postop median sternotomy and CABG. CONCLUSION: 1. Subsegmental basilar airspace disease. No significant effusion. Postop CABG. Tanmay Chavez MD on July 28, 2017 at 19:32 Board Certified Radiologist. This report was verified electronically.
[2017-07-28 19:38] LABS: ANION GAP 9 MEQ/L (5-15); BICARBONATE 27.6 MEQ/L (21.0-32.0); BLOOD UREA NITROGEN 29 MG/DL (7-18); CHLORIDE 99 MEQ/L (98-107); GLOMERULAR FILTRATION RATE 46 ML/MIN (>89); MAGNESIUM 1.8 MG/DL (1.5-2.5); POTASSIUM 3.8 MEQ/L (3.5-5.1); SODIUM (NA) 136 MEQ/L (136-145)
[2017-07-28 19:41] LABS: APTT (PATIENT) 26.8 SEC (24.3-30.1); INTERNATIONAL NORMALIZED RATIO 1.1 RATIO; PROTHROMBIN TIME - PATIENT 10.7 SEC (9.8-11.6)
[2017-07-28 19:43] LABS: CREATINE KINASE 50 U/L (39-308)
[2017-07-28] MEDS ORDERED: SODIUM CHLORIDE 0.9% FLUSH 10 ML FLUSH IV FLUSH PRN (20:30)
--- NOTE | 2017-07-28 20:31 | PD ---
HPI Chief Complaint: Allergic/Adverse Reaction Time Seen by Provider: 18:21 Travel History International Travel<30 days: No Contact w/Intl Traveler<30days: No Traveled to known affect area: No History of Present Illness HPI 82 year old male patient presents to the emergency department for evaluation of possible allergic reaction that occur this afternoon when he took Levaquin. Patient was evaluated at the [facility] yesterday for a routine exam and was told he had an infection. Patient is unsure what infect they were referring to because he says he doesn't have any complaints. He was prescribed Levaquin at that time. He took his first dose today and within 30 mins had generalized itchy skin and difficulty breathing. There was never any hives or rash associated. EMS arrived to patient's house to transport him to the ED, they gave him 50mg Benadryl in route. Patient denies any fevers, chills, malaise, nausea, vomiting , abdominal pain, diarrhea. PFSH Past Medical History Hx Anticoagulant Therapy: Yes (PLAVIX ) Arthritis: No Asthma: Yes Atrial Fibrillation: No Blood Disorders: No Heart Rhythm Problems: No Cancer: Yes (PROSTATE CANCER ) Cardiac Catheterization: Yes (X7) Cardiovascular Problems: Yes High Cholesterol: Yes Chemotherapy: No Chest Pain: Yes Congestive Heart Failure: Yes COPD: Yes Cerebrovascular Accident: No Coronary Artery Disease: Yes Diabetes: Yes Patient Takes Glucophage: No Diminished Hearing: No Endocrine: Yes Gastrointestinal Disorders: No GERD: No Glaucoma: No Genitourinary: Yes Headaches: Yes Hepatitis: No Hiatal Hernia: No Hypertension: Yes Immune Disorder: No Musculoskeletal: Yes Neurologic: No Psychiatric: No Reproductive: No Respiratory: Yes Integumentary: Yes Immunizations Current: Yes Migraines: No Myocardial Infarction: Yes (X 3-4) Pancreatitis: Yes Pneumonia: Yes (Recent) Radiation Therapy: Yes Seizures: No Sleep Apnea: No Ulcer: Yes Past Surgical History Abdominal Surgery: No AICD: No Appendectomy: No Arteriovenous Shunt: No Cardiac Surgery: Yes (TRIPLE BYPASS) Cholecystectomy: No Coronary Artery Bypass Graft: Yes (X 3 ) Coronary Stent: Yes (X1) Ear Surgery: No Endocrine Surgery: No Eye Surgery: Yes (CATARACT SURGERY) Genitourinary Surgery: No Gynecologic Surgery: No Insulin Pump: No Joint Replacement: No Oral Surgery: No Pacemaker: No Thoracic Surgery: No Tonsillectomy: Yes (CHILD ) Other Surgery: Yes Social History Alcohol Use: No Tobacco Use: No Substance Use: No Allergies-Medications (Allergen,Severity, Reaction): Coded Allergies: Sulfa (Sulfonamide Antibiotics) (Verified Allergy, Severe, 07/28/17) cefepime (Verified Allergy, Severe, 07/11/17) ceftaroline fosamil (Verified Allergy, Severe, 07/11/17) ceftriaxone (Verified Allergy, Severe, 07/11/17) chlorpheniramine (Verified Allergy, Severe, "MAKES ME FEEL SICK, 07/11/17) diatrizoate meglumine (Verified Allergy, Severe, 07/11/17) doxycycline (Verified Allergy, Severe, 07/11/17) gadobenic acid (Verified Allergy, Severe, 07/11/17) gadodiamide (Verified Allergy, Severe, 07/11/17) gadoteridol (Verified Allergy, Severe, 07/11/17) hydroxyzine (Verified Allergy, Severe, 07/11/17) iodixanol (Verified Allergy, Severe, 07/11/17) iohexol (Verified Allergy, Severe, 07/11/17) levofloxacin (Verified Allergy, Severe, 07/11/17) midazolam (Verified Allergy, Severe, HURT ALL OVER, 07/11/17) penicillin G (Verified Allergy, Severe, RASH,FEVER, 07/11/17) Uncoded Allergies: metopro (Allergy, Severe, 03/26/17) Reported Meds & Prescriptions Reported Meds & Active Scripts Active Plavix (Clopidogrel Bisulfate) 75 Mg Tab 75 Mg PO DAILY Lasix (Furosemide) 40 Mg Tab 40 Mg PO DAILY Reported Combivent Respimat Inh (Ipratropium-Albuterol Inh) 20-100 Group Home/Act Aero 1 Puff INH DIRECTED PRN Prednisone 20 Mg Tab 40 Mg PO DAILY Guaifenesin ER (Guaifenesin) 600 Mg Tab.er.12h 600 Mg PO DAILY Co Q 10 (Coenzyme Q10 (Ubidecarenone)) 100 Mg-5 Unit Cap 100 Mg PO DAILY Multiple Vitamin 1 Tab 2 Tab PO DAILY Lisinopril 2.5 Mg Tab 2.5 Mg PO DAILY Vitamin C (Ascorbic Acid) 1,000 Mg Tablet.er 1,000 Mg PO DAILY Lantus Inj (Insulin Glargine) 100 Unit/Ml Inj 30 Units SQ DAILY IN THE AM Atorvastatin (Atorvastatin Calcium) 40 Mg Tab 40 Mg PO HS Potassium Chloride ER (Potassium Chloride) 20 Meq Tab 20 Meq PO DAILY Lantus Inj (Insulin Glargine) 1,000 Unit/10 Ml Vial 15 Units SQ HS Tamsulosin (Tamsulosin HCl) 0.4 Mg Cap 0.4 Mg PO HS Symbicort Inh (Budesonide/Formoterol Fumarate) 80-4.5 Mcg/Act Aero 1 Puff INH Q12HR Novolog Inj (Insulin Aspart) 1,000 Unit/10 Ml Vial 0 SQ DIRECTED Sliding Scale as directed. Gabapentin 100 Mg Cap 100 Mg PO TID Aspirin 81 (Aspirin) 81 Mg Tabdr 81 Mg PO DAILY Review of Systems Except as stated in HPI: all other systems reviewed are Neg Physical Exam Narrative GENERAL: Well-nourished, well-developed 82 year old male patient resting comfortably on the stretcher conversing in no acute distress. Nontoxic appearing. SKIN: Focused skin assessment warm/dry. HEAD: Normocephalic. Atraumatic. EYES: No scleral icterus. No injection or drainage. NECK: Supple, trachea midline. No JVD or lymphadenopathy. CARDIOVASCULAR: Regular rate and rhythm without murmurs, gallops, or rubs. RESPIRATORY: Breath sounds equal bilaterally. No accessory muscle use. GASTROINTESTINAL: Abdomen soft, non-tender, nondistended. MUSCULOSKELETAL: No cyanosis, or edema. BACK: Nontender without obvious deformity. No CVA tenderness. Data Data Last Documented VS Vital Signs Date Time Temp Pulse Resp B/P (MAP) Pulse Ox O2 Delivery O2 Flow Rate FiO2 07/28/17 20:05 98 Room Air 07/28/17 20:05 83 16 146/67 (93) 126/60 (82) 07/28/17 18:03 97.9 Orders Orders Prednisone (Deltasone) (07/28/17 18:45) Electrocardiogram (07/28/17 18:50) Basic Metabolic Panel (Bmp) (07/28/17 18:50) Ckmb (Isoenzyme) Profile (07/28/17 18:50) Complete Blood Count With Diff (07/28/17 18:50) Magnesium (Mg) (07/28/17 18:50) Prothrombin Time / Inr (Pt) (07/28/17 18:50) Act Partial Throm Time (Ptt) (07/28/17 18:50) Troponin I (07/28/17 18:50) Chest, Single Ap (07/28/17 18:50) Ecg Monitoring (07/28/17 18:50) Bilateral Bp Monitoring (07/28/17 18:50) Iv Access Insert/Monitor (07/28/17 18:50) Oximetry (07/28/17 18:50) Oxygen Administration (07/28/17 18:50) Sodium Chloride 0.9% Flush (Ns Flush) (07/28/17 19:00) Admit Order (Ed Use Only) (07/28/17 20:16) Activity Bed Rest With Brp (07/28/17 20:16) Vital Signs (Adult) Q4H (07/28/17 20:16) Cardiac Rhythm .As Directed (07/28/17 20:16) Notify Dr: Other .PRN (07/28/17 20:16) Notify Dr. Parameters (07/28/17 20:16) Resp Oxygen Nasal Cannula (07/28/17 ) Ckmb (Isoenzyme) Profile (07/28/17 20:16) Ckmb (Isoenzyme) Profile (07/28/17 23:16) Troponin I (07/28/17 20:16) Troponin I (07/28/17 23:16) Electrocardiogram (07/28/17 20:16) Electrocardiogram (07/28/17 23:16) ^ Obtain (07/28/17 20:16) Sodium Chloride 0.9% Flush (Ns Flush) (07/28/17 20:30) Sodium Chloride 0.9% Flush (Ns Flush) (07/28/17 21:00) Classroom Technology Technician / Telemetry [email or web address] (07/28/17 20:16) Labs Laboratory Tests Test 07/28/17 18:55 White Blood Count 9.1 TH/MM3 Red Blood Count 4.31 MIL/MM3 Hemoglobin 13.1 GM/DL Hematocrit 38.7 % Mean Corpuscular Volume 89.6 FL Mean Corpuscular Hemoglobin 30.4 PG Mean Corpuscular Hemoglobin Concent 33.9 % Red Cell Distribution Width 15.2 % Platelet Count 236 TH/MM3 Mean Platelet Volume 8.6 FL Neutrophils (%) (Auto) 68.5 % Lymphocytes (%) (Auto) 10.9 % Monocytes (%) (Auto) 6.5 % Eosinophils (%) (Auto) 13.3 % Basophils (%) (Auto) 0.8 % Neutrophils # (Auto) 6.2 TH/MM3 Lymphocytes # (Auto) 1.0 TH/MM3 Monocytes # (Auto) 0.6 TH/MM3 Eosinophils # (Auto) 1.2 TH/MM3 Basophils # (Auto) 0.1 TH/MM3 CBC Comment DIFF FINAL Differential Comment Prothrombin Time 10.7 SEC Prothromb Time International Ratio 1.1 RATIO Activated Partial Thromboplast Time 26.8 SEC Blood Urea Nitrogen 29 MG/DL Creatinine 1.45 MG/DL Random Glucose 147 MG/DL Calcium Level 8.6 MG/DL Magnesium Level 1.8 MG/DL Sodium Level 136 MEQ/L Potassium Level 3.8 MEQ/L Chloride Level 99 MEQ/L Carbon Dioxide Level 27.6 MEQ/L Anion Gap 9 MEQ/L Estimat Glomerular Filtration Rate 46 ML/MIN Total Creatine Kinase 50 U/L Troponin I LESS THAN 0.02 NG/ML MDM Medical Decision Making Medical Screen Exam Complete: Yes Emergency Medical Condition: Yes Differential Diagnosis Differential diagnosis include but not limited to electrolyte abnormality, chest pain, allergic reaction, anaphylaxis Narrative Course 82-year-old male patient presents emergency department for evaluation of possible allergic reaction. Patient took a dose of Levaquin and within 30 minutes had generalized skin itchiness and difficulty breathing. There was never any rash or hives associated with this reaction. There is no angioedema or throat swelling. Patient was transported via EMS and given 50 mg Benadryl and round. Upon arrival patient was given prednisone. Upon reassessment patient is complaining of chest pain. Patient has history of CABG. Chest x-ray , blood work, EKG ordered and pending. Blood work is unremarkable, EKG shows sinus rhythm with occasional supraventricular premature complexes with heart rate 81. Chest x-ray shows an area of the left lower lobe that is questionable for possible pneumonia. Upon discharge from the hospital the plan to change Levaquin to azithromycin to the patient's extensive allergies and need for antimicrobial therapy for pneumonia is in place. Patient will be admitted to the chest pain center [facility] for further cardiac workup due to him developing chest pain after his possible allergic reaction. Last Impressions Chest X-Ray 07/28/17 1850 Signed Impressions: Service Date/Time: July 19:15 - CONCLUSION: 1. Subsegmental basilar airspace disease. No significant effusion. Postop CABG. Tanmay Chavez MD Diagnosis Primary Impression: Chest pain Qualified Codes: R07.9 - Chest pain, unspecified Additional Impression: Allergic reaction Qualified Codes: T78.40XA - Allergy, unspecified, initial encounter Admitting Information Admitting Physician Requests: Steph Melo Jul 28, 2017 20:31
[2017-07-28] MEDS: SODIUM CHLORIDE 0.9% FLUSH 10 ML FLUSH IV FLUSH SCH (21:00)
[2017-07-28 21:48] LABS: CREATINE KINASE 40 U/L (39-308)
[2017-07-29 00:04] LABS: CREATINE KINASE 44 U/L (39-308)
[2017-07-29 04:00] VITALS: PULSE 69
[2017-07-29 04:32] VITALS: BP 118/57; PULSE 66; RESP 18; TEMP 98.8; O2SAT 95
[2017-07-29] MEDS ORDERED: ONDANSETRON HCL 4 MG/2 ML VIAL IV PUSH PRN (07:45)
[2017-07-29] MEDS ORDERED: ACETAMINOPHEN 500 MG CPLT PO PRN (07:45)
[2017-07-29] MEDS ORDERED: NITROGLYCERIN 0.4 MG SL 25 TABS/BTL SL PRN (07:45)
[2017-07-29 08:00] VITALS: PULSE 82
[2017-07-29] MEDS ORDERED: BENZOCAINE-MENTHOL (SUGAR FREE) 15 MG-3.6 MG LOZENGE BUCCAL PRN (08:15)
[2017-07-29] MEDS ORDERED: GLUCAGON 1 MG/ML VIAL OTHER PRN (08:15)
[2017-07-29] MEDS ORDERED: DEXTROSE 50% IN WATER 50 ML VIAL(D50) IV PUSH PRN (08:15)
[2017-07-29] MEDS ORDERED: RESP: ALBUTEROL 2.5 MG/3 ML NEB (PRN) NEB (08:15)
[2017-07-29 08:28] VITALS: BP 123/63; PULSE 79; RESP 20; TEMP 95.7; O2SAT 96
[2017-07-29] MEDS ORDERED: PILL SPLITTER OTHER PRN (08:30)
--- NOTE | 2017-07-29 08:43 | EKG ---
Date Performed: 07/29/2017 Time Performed: 02:27:22 PTAGE: 82 years EKG: Sinus rhythm NORMAL ECG PREVIOUS TRACING : 07/28/2017 23.06 Since previous tracing, no significant change noted DOCTOR: Nils Dominguez Interpretating Date/Time 07/29/2017 08:41:57
--- NOTE | 2017-07-29 08:44 | EKG ---
Date Performed: 07/28/2017 Time Performed: 20:05:21 PTAGE: 82 years EKG: Sinus rhythm WITH OCCASIONAL SUPRAVENTRICULAR PREMATURE COMPLEXES BORDERLINE ECG PREVIOUS TRACING : 07/11/2017 11.37 Since previous tracing, no significant change noted DOCTOR: Nils Dominguez Interpretating Date/Time 07/29/2017 08:43:27
--- NOTE | 2017-07-29 08:44 | EKG ---
Date Performed: 07/28/2017 Time Performed: 23:06:36 PTAGE: 82 years EKG: Sinus rhythm NORMAL ECG PREVIOUS TRACING : 07/28/2017 20.05 Since previous tracing, no significant change noted DOCTOR: Nils Dominguez Interpretating Date/Time 07/29/2017 08:43:10
[2017-07-29] MEDS: SODIUM CHLORIDE 0.9% FLUSH 10 ML FLUSH IV FLUSH SCH (08:57)
[2017-07-29] MEDS ORDERED: BUDESONIDE-FORMOTEROL 80/4.5 MCG INHALER INH SCH (09:00)
[2017-07-29] MEDS ORDERED: CLOPIDOGREL 75 MG TAB PO SCH (09:00)
[2017-07-29] MEDS ORDERED: LISINOPRIL 5 MG TAB PO SCH (09:00)
[2017-07-29] MEDS ORDERED: ASPIRIN 325 MG TAB PO SCH (09:00)
--- NOTE | 2017-07-29 11:41 | HHI.DCPOC ---
Discharge Care Plan Diagnosis: (1) Atypical chest pain (2) Hx of coronary artery disease (3) Allergic reaction Goals to Promote Your Health * To prevent worsening of your condition and complications * To maintain your health at the optimal level Directions to Meet Your Goals Take your medications as prescribed Follow your dietary instruction Follow activity as directed Keep your appointments as scheduled Take your immunizations and boosters as scheduled If your symptoms worsen call your PCP, if no PCP go to Urgent Care Center or Emergency Room Smoking is Dangerous to Your Health. Avoid second hand smoke Call the 24-hour hour crisis hotline for domestic abuse at [facility] Jul 29, 2017 11:41
--- NOTE | 2017-07-29 11:54 | HHI.HP ---
HPI Service [facility] Primary Care Physician Germán Monzon MD Chief Complaint SOB WITH "DISCOMFORT" IN CHEST DUE TO DIFFICULTY BREATHING History of Present Illness 82 YO MALE KNOWN TO THIS PHYSICIAN. HE IS A POOR HISTORIAN PROBABLY DUE TO UNDERLYING MEMORY ISSUES BUT HIGHLY COOPERATIVE AND BRINGS A JUMBLE OF MEDICAL RECORDS WITH HIM TO HELP. HE GENERALLY FOLLOWS AT THE PA AND ON HIS RECENT ROUTINE VISIT WAS TOLD THAT HE HAD BRONCHITIS AND "INFECTION" AND WAS STARTED ON AZITHROMYCIN WHICH HE IS ALLERGIC TO. HE RECOGNIZED THIS AND REFUSED TO TAKE IT. HE WAS THEN PRESCRIBED LEVOFLOXACIN AND RAPIDLY DEVELOPED ITCHING SOB AND A SKIN RASH. HE PRESENTED HERE AND AFTER INITIAL EVALUATION HE COMPLAINED OF DISCOMFORT IN HIS CHEST AND WAS TRANSFERRED TO [facility]. HE TELLS ME THAT HE NEVER HAD CHEST PAIN ONLY DISCOMFORT DUE TO SOB. HE STATES THAT HE KNOWS WHAT HIS ANGINA IS LIKE AND THAT HE HAS NOT HAD HEART PAIN SINCE HIS CABG. HE IS ADAMANT THAT THIS IS NOT HEART AND THAT HE WOULD LIKE TO BE DISCHARGED. HE HAS BEEN FOLLOWED WITH DR. CHANCE AND NOW HIS REPLACEMENT AND IS SEEN ON A REGULAR BASIS. HE IS ALSO SCHEDULED TO SEE DR. KATLYN TALAVERA THIS COMING WEEK. HE IS A RELIABLE PATIENT, HAS ESTABLISHED [facility] AND CAN BE RELIED UPON TO FOLLOW UP DIRECTED. Review of Systems ROS Limitations: Poor Historian Consitutional: COMPLAINS OF: Fever Respiratory: COMPLAINS OF: Cough, Shortness of breath Cardiovascular: COMPLAINS OF: See HPI Integumentary: COMPLAINS OF: Rash Neurologic: COMPLAINS OF: Memory problems Hematologic: COMPLAINS OF: Bruising tendencies SLOWLY HEALING WOUND ON FOOT FOLLOWED BY COMMUNITY ENGAGEMENT SPECIALIST GILBERT FOLLOWED BY ARAB Past Family Social History Allergies: Coded Allergies: Sulfa (Sulfonamide Antibiotics) (Verified Allergy, Severe, 07/28/17) cefepime (Verified Allergy, Severe, 07/11/17) ceftaroline fosamil (Verified Allergy, Severe, 07/11/17) ceftriaxone (Verified Allergy, Severe, 07/11/17) chlorpheniramine (Verified Allergy, Severe, "MAKES ME FEEL SICK, 07/11/17) diatrizoate meglumine (Verified Allergy, Severe, 07/11/17) doxycycline (Verified Allergy, Severe, 07/11/17) gadobenic acid (Verified Allergy, Severe, 07/11/17) gadodiamide (Verified Allergy, Severe, 07/11/17) gadoteridol (Verified Allergy, Severe, 07/11/17) hydroxyzine (Verified Allergy, Severe, 07/11/17) iodixanol (Verified Allergy, Severe, 07/11/17) iohexol (Verified Allergy, Severe, 07/11/17) levofloxacin (Verified Allergy, Severe, 07/11/17) midazolam (Verified Allergy, Severe, HURT ALL OVER, 07/11/17) penicillin G (Verified Allergy, Severe, RASH,FEVER, 07/11/17) Uncoded Allergies: metopro (Allergy, Severe, 03/26/17) Past Medical History CAD SP CABG PVD DIABETES CANCER OF PROSTATE COPD DISTANT HX OF ASPERGILLUS Past Surgical History CABG X 3 CATARACTS T&A SURGERY ON FOOT - NON HEALING WOUND Reported Medications Reported Meds & Active Scripts Active Plavix (Clopidogrel Bisulfate) 75 Mg Tab 75 Mg PO DAILY Lasix (Furosemide) 40 Mg Tab 40 Mg PO DAILY Reported Combivent Respimat Inh (Ipratropium-Albuterol Inh) 20-100 Usp/Act Aero 1 Puff INH DIRECTED PRN Prednisone 20 Mg Tab 40 Mg PO DAILY Guaifenesin ER (Guaifenesin) 600 Mg Tab.er.12h 600 Mg PO DAILY Co Q 10 (Coenzyme Q10 (Ubidecarenone)) 100 Mg-5 Unit Cap 100 Mg PO DAILY Multiple Vitamin 1 Tab 2 Tab PO DAILY Lisinopril 2.5 Mg Tab 2.5 Mg PO DAILY Vitamin C (Ascorbic Acid) 1,000 Mg Tablet.er 1,000 Mg PO DAILY Lantus Inj (Insulin Glargine) 100 Unit/Ml Inj 30 Units SQ DAILY IN THE AM Atorvastatin (Atorvastatin Calcium) 40 Mg Tab 40 Mg PO HS Potassium Chloride ER (Potassium Chloride) 20 Meq Tab 20 Meq PO DAILY Lantus Inj (Insulin Glargine) 1,000 Unit/10 Ml Vial 15 Units SQ HS Tamsulosin (Tamsulosin HCl) 0.4 Mg Cap 0.4 Mg PO HS Symbicort Inh (Budesonide/Formoterol Fumarate) 80-4.5 Mcg/Act Aero 1 Puff INH Q12HR Novolog Inj (Insulin Aspart) 1,000 Unit/10 Ml Vial 0 SQ DIRECTED Sliding Scale as directed. Gabapentin 100 Mg Cap 100 Mg PO TID Aspirin 81 (Aspirin) 81 Mg Tabdr 81 Mg PO DAILY Active Ordered Medications Current Medications Medications (Trade) Dose Ordered Sig/Will Route Start Time Stop Time Status Last Admin (NS Flush) 2 ml UNSCH PRN IVF 07/28/17 19:00 (NS Flush) 2 ml UNSCH PRN IV FLUSH 07/28/17 20:30 (NS Flush) 2 ml BID IV FLUSH 07/28/17 21:00 07/29/17 08:57 (Tylenol) 500 mg Q4H PRN PO 07/29/17 07:45 (Zofran Inj) 4 mg Q6H PRN IV PUSH 07/29/17 07:45 (Nitrostat Sl) 0.4 mg Q5M PRN SL 07/29/17 07:45 (Aspirin) 325 mg DAILY PO 07/29/17 09:00 07/29/17 08:57 (Symbicort 80-4.5 Mcg Inh) 1 puff Q12HR INH 07/29/17 09:00 07/29/17 08:56 (Plavix) 75 mg DAILY PO 07/29/17 09:00 07/29/17 08:56 (Prinivil) 2.5 mg DAILY PO 07/29/17 09:00 07/29/17 08:57 (D50w (Vial) Inj) 50 ml UNSCH PRN IV PUSH 07/29/17 08:15 (Glucagon Inj) 1 mg UNSCH PRN OTHER 07/29/17 08:15 (NovoLOG SUPPLEMENTAL SCALE) 1 ACHS SLIDING SCALE SQ 07/29/17 12:00 (Albuterol Neb) 2.5 mg Q2HR NEB PRN NEB 07/29/17 08:15 07/29/17 08:34 (Cepacol Extra Jessika (Sugar Free)) 1 lozenge Q2HR PRN BUCCAL 07/29/17 08:15 (Pill Splitter) 1 ea UNSCH PRN OTHER 07/29/17 08:30 07/29/17 08:57 Family History NOT CURRENTLY SIG Social History TOBACCO ABUSE DISCONTINUED SEVERAL YEARS AGO OCCASIONAL ETOH ONLY NO RECREATIONAL DRUGS Physical Exam Vital Signs Vital Signs Date Time Temp Pulse Resp B/P (MAP) Pulse Ox O2 Delivery O2 Flow Rate FiO2 07/29/17 08:28 95.7 79 20 123/63 (83) 96 07/29/17 08:00 82 07/29/17 04:32 98.8 66 18 118/57 (77) 95 07/29/17 04:00 69 07/28/17 23:58 78 07/28/17 23:02 97.6 80 17 137/64 (88) 95 07/28/17 22:03 79 07/28/17 22:00 95 21 07/28/17 21:43 98.0 78 18 133/63 (86) 94 07/28/17 21:23 07/28/17 20:05 98 Room Air 07/28/17 20:05 83 16 146/67 (93) 98 Room Air 126/60 (82) 07/28/17 18:03 97.9 109 18 153/75 (101) 96 Physical Exam GENERAL: FRAIL, SOB ON MINIMAL EXERTION SKIN: Warm and dry. BRUISING AND SOLAR DAMAGE HEAD: Atraumatic. Normocephalic. BALDING EYES: Pupils equal and round. No scleral icterus. No injection or drainage. BILATERAL IOL EOMI ENT: No nasal bleeding or discharge. Mucous membranes pink and moist. TONGUE GEOGRAPHIC, RED, THROAT INJECTED. (STATES THIS IS HIS NORMAL TONGUE) NECK: Trachea midline. No JVD. CARDIOVASCULAR: Regular rate and rhythm. 1/6 S M, NO G OR RUB RESPIRATORY: HEALED STERNAL SCAR, DECREASED BS BILATERALLY BUT NO R,W,R GASTROINTESTINAL: Abdomen soft, non-tender, nondistended. Hepatic and splenic margins not palpable. MUSCULOSKELETAL: Extremities without clubbing, cyanosis, or edema. No obvious deformities. PULSES SIG DIMINISHED R FOOT WITH DRESSED WOUND NEUROLOGICAL: Awake and alert. No obvious cranial nerve deficits. Motor grossly within normal limits. Five out of 5 muscle strength in the arms and legs. Normal speech. MEMORY IMPAIRED PSYCHIATRIC: Appropriate mood and affect; insight and judgment normal. Laboratory Laboratory Tests Test 07/28/17 18:55 07/28/17 20:48 07/28/17 23:20 White Blood Count 9.1 Red Blood Count 4.31 Hemoglobin 13.1 Hematocrit 38.7 Mean Corpuscular Volume 89.6 Mean Corpuscular Hemoglobin 30.4 Mean Corpuscular Hemoglobin Concent 33.9 Red Cell Distribution Width 15.2 Platelet Count 236 Mean Platelet Volume 8.6 Neutrophils (%) (Auto) 68.5 Lymphocytes (%) (Auto) 10.9 Monocytes (%) (Auto) 6.5 Eosinophils (%) (Auto) 13.3 Basophils (%) (Auto) 0.8 Neutrophils # (Auto) 6.2 Lymphocytes # (Auto) 1.0 Monocytes # (Auto) 0.6 Eosinophils # (Auto) 1.2 Basophils # (Auto) 0.1 CBC Comment DIFF FINAL Differential Comment Prothrombin Time 10.7 Prothromb Time International Ratio 1.1 Activated Partial Thromboplast Time 26.8 Blood Urea Nitrogen 29 Creatinine 1.45 Random Glucose 147 Calcium Level 8.6 Magnesium Level 1.8 Sodium Level 136 Potassium Level 3.8 Chloride Level 99 Carbon Dioxide Level 27.6 Anion Gap 9 Estimat Glomerular Filtration Rate 46 Total Creatine Kinase 50 40 44 Troponin I LESS THAN 0.02 LESS THAN 0.02 LESS THAN 0.02 Result Diagram: 07/28/17185407/28/171854 Mery VTE Risk Assessment Mery VTE Risk Assessment: Mod/High Risk (score >= 2) Caprini Risk Assessment Model Point Value = 1 Point Value = 2 Point Value = 3 Point Value = 5 Age 41-60 Minor surgery BMI > 25 kg/m2 Swollen legs Varicose veins or History of unexplained or recurrent spontaneous Oral contraceptives or hormone replacement Sepsis (< 1 month) Serious lung disease, including pneumonia (< 1 month) Abnormal pulmonary function Acute myocardial infarction Congestive heart failure (< 1 month) History of inflammatory bowel disease Medical patient at bed rest Age 61-74 Arthroscopic surgery Major open surgery (> 45 min) Laparoscopic surgery (> 45 min) Malignancy Confined to bed (> 72 hours) Immobilizing plaster cast Central venous access Age >= 75 History of VTE Family history of VTE Factor V Leiden Prothrombin [id number] Lupus anticoagulant Anticardiolipin antibodies Elevated serum homocysteine Heparin-induced thrombocytopenia Other congenital or acquired thrombophilia Stroke (< 1 month) Elective arthroplasty Hip, pelvis, or leg fracture Acute spinal cord injury (< 1 month) Prophylaxis Regimen Total Risk Factor Score Risk Level Prophylaxis Regimen 0-1 Low Early ambulation 2 Moderate Order ONE of the following: *Sequential Compression Device (SCD) *Heparin 5000 units SQ BID 3-4 Higher Order ONE of the following medications: *Heparin 5000 units SQ TID *Enoxaparin/Lovenox 40 mg SQ daily (WT < 150 kg, CrCl > 30 mL/min) *Enoxaparin/Lovenox 30 mg SQ daily (WT < 150 kg, CrCl > 10-29 mL/min) *Enoxaparin/Lovenox 30 mg SQ BID (WT < 150 kg, CrCl > 30 mL/min) AND/OR *Sequential Compression Device (SCD) 5 or more Highest Order ONE of the following medications: *Heparin 5000 units SQ TID (Preferred with Epidurals) *Enoxaparin/Lovenox 40 mg SQ daily (WT < 150 kg, CrCl > 30 mL/min) *Enoxaparin/Lovenox 30 mg SQ daily (WT < 150 kg, CrCl > 10-29 mL/min) *Enoxaparin/Lovenox 30 mg SQ BID (WT < 150 kg, CrCl > 30 mL/min) AND *Sequential Compression Device (SCD) Assessment and Plan Problem List: (1) Pulmonary aspergillosis ICD Codes: B44.1 - Other pulmonary aspergillosis Status: Resolved Plan: FOLLOW WITH DR TALAVERA (2) Coronary artery disease ICD Codes: I25.10 - Atherosclerotic heart disease of [place] coronary artery without angina pectoris Status: Chronic Plan: FOLLOW UP WITH HIS PRIVATE HEATER FURNACE SCHEDULED (3) Neuropathy ICD Codes: G62.9 - Polyneuropathy, unspecified Status: Chronic (4) Renal insufficiency ICD Codes: N28.9 - Disorder of kidney and ureter, unspecified Status: Chronic (5) Diabetes 1.5, managed as type 2 ICD Codes: E10.9 - Type 1 diabetes mellitus without complications Status: Chronic Plan: WILL TREAT HIS CURRENT GLUCOSE LEVELS TILL STABLE AND DISCH TO FU WITH HIS PCP DR DAMIAN (6) Chronic ulcer of right foot ICD Codes: L97.519 - Non-pressure chronic ulcer of other part of right foot with unspecified severity Status: Chronic Plan: FOLLOW WITH COMMUNITY ENGAGEMENT SPECIALIST SCHEDULED (7) COPD (chronic obstructive pulmonary disease) ICD Codes: J44.9 - Chronic obstructive pulmonary disease, unspecified Status: Chronic Plan: SCHEDULED TO SEE DR TALAVERA NEXT WEEK (8) Medication side effect ICD Codes: T88.7XXA - Unspecified adverse effect of drug or medicament, initial encounter Status: Acute Plan: RESOLVED ACUTELY BUT TO FU WITH PCP (9) Allergic reaction ICD Codes: T78.40XA - Allergy, unspecified, initial encounter Status: Resolved (10) Atypical chest pain ICD Codes: R07.89 - Other chest pain Plan: CURRENT CHEST DISCOMFORT IS SECONDARY TO SOB ASSOCIATED WITH ALLERGIC REACTION. HOWEVER, HE IS TO FU WITH HIS PRIVATE HEATER FURNACE. AT HIS REQUEST I AM ALSO REFERRING HIM TO JOAN WHO HE HAS SEEN IN THE DISTANT PAST. (11) Hx of coronary artery disease ICD Codes: Z86.79 - Personal history of other diseases of the circulatory system Plan: FOLLOWS WITH DR WILLOUGHBY Problem Qualifiers (1) Allergic reaction: Qualified Codes: T78.40XA - Allergy, unspecified, initial encounter Gio Sears MD Jul 29, 2017 11:54
[2017-07-29] MEDS ORDERED: INSULIN ASPART SUPPLEMENTAL SCALE SQ SCH (12:00)
[2017-07-29 12:02] VITALS: BP 127/59; PULSE 81; RESP 18; TEMP 95.4; O2SAT 93
[2017-07-29] MEDS ORDERED: INSULIN ASPART 1,000 UNITS/10 ML VIAL SQ ONE ×2 (12:15→15:30)
[2017-07-29] MEDS ORDERED: INSULIN DETEMIR 100 UNITS/ML VIAL SQ SCH (12:15)
[2017-07-29 16:33] VITALS: BP 132/60; PULSE 75; RESP 20; TEMP 95.4; O2SAT 98
== END 2017-07-29 17:29 | disposition home or self-care (01) ==
LOC: NEPC 17:56 → NEDA 20:19 → NEPHCDU 21:22
PROVIDERS: ADMIT Internal Medicine Cardiovascular Disease; ATTEND Internal Medicine Cardiovascular Disease
DX: B44.1 Other pulmonary aspergillosis (principal); T78.40XA Allergy, unspecified, initial encounter; I25.10 Atherosclerotic heart disease of native coronary artery without angina pectoris; I11.0 Hypertensive heart disease with heart failure; I50.9 Heart failure, unspecified; I25.2 Old myocardial infarction; I49.1 Atrial premature depolarization; E10.42 Type 1 diabetes mellitus with diabetic polyneuropathy; N28.9 Disorder of kidney and ureter, unspecified; E78.00 Pure hypercholesterolemia, unspecified; J44.9 Chronic obstructive pulmonary disease, unspecified; E10.51 Type 1 diabetes mellitus with diabetic peripheral angiopathy without gangrene; E10.621 Type 1 diabetes mellitus with foot ulcer; L97.519 Non-pressure chronic ulcer of other part of right foot with unspecified severity; R07.89 Other chest pain; Z95.1 Presence of aortocoronary bypass graft; Z85.46 Personal history of malignant neoplasm of prostate; Z79.899 Other long term (current) drug therapy; Z79.82 Long term (current) use of aspirin; Z87.891 Personal history of nicotine dependence
CPT/HCPCS: 71010; 80048; 82550; 82948; 83735; 84484; 85025; 85610; 85730; 93005; 94664; 96372; 99285; G0378; J1815; J7512; J7613

== ENCOUNTER 2017-11-22 12:04 | Emergency (ER) | payer MEDICARE ==
[~2017-11-22 12:04] MED LIST changes: -CLAR500T PO; +IPRAAER INH; +PRED20 PO; -VENTAER INH
[2017-11-22 12:26] VITALS: BP 145/65; PULSE 87; RESP 12; TEMP 98.3; O2SAT 94
[2017-11-22 12:51] VITALS: PULSE 98; RESP 22; O2SAT 96
[2017-11-22] MEDS ORDERED: FUROSEMIDE 40 MG/4 ML VIAL IV PUSH ONE (13:00)
[2017-11-22 13:14] LABS: AUTOMATED NEUTROPHIL # 7.4 TH/MM3 (1.8-7.7); BASOPHIL # 0.1 TH/MM3 (0-0.2); BASOPHIL % 1.1 % (0.0-2.0); EOSINOPHIL % 8.9 % (0.0-4.0); HEMATOCRIT 44.7 % (39.0-51.0); HEMOGLOBIN 15.1 GM/DL (13.0-17.0); LYMPH % 13.7 % (9.0-44.0); LYMPHOCYTE # 1.5 TH/MM3 (1.0-4.8); MEAN CELL VOLUME 89.1 FL (80.0-100.0); MEAN CORPUSCULAR HEMOGLOBIN 30.1 PG (27.0-34.0); MEAN CORPUSCULAR HGB CONC 33.7 % (32.0-36.0); MEAN PLATELET VOLUME 8.7 FL (7.0-11.0); MONO % 9.4 % (0.0-8.0); NEUT % 66.9 % (16.0-70.0); PLATELET COUNT 240 TH/MM3 (150-450); RED BLOOD COUNT 5.01 MIL/MM3 (4.50-5.90); RED CELL DISTRIBUTION WIDTH 14.7 % (11.6-17.2)
--- NOTE | 2017-11-22 13:26 | PD ---
HPI Chief Complaint: Respiratory Symptoms Time Seen by Provider: 12:35 Travel History International Travel<30 days: No Contact w/Intl Traveler<30days: No Traveled to known affect area: No History of Present Illness HPI 82-year-old male who presents to the ED for evaluation of shortness of breath with exertion and possible fluid overload. Per patient he has a chronic history of CHF, COPD, previous ND as well as diabetes and high blood pressure. Per patient she has been having shortness of breath with exertion as well as orthopnea with swelling of the feet bilaterally for the past week. Per patient is progressively getting worse more severe today. Patient went to see his primary care doctor yesterday who recommended that he increase his Lasix to 2 pills a day of 40 mg and he did this yesterday with feeling that he is not paying enough. Per patient he is still feeling very short of breath. Denies any urinary or bowel movement issues. No chest pain. Shortness of breath gets worse with exertion as well as with laying down flat. She states having swelling to both legs. Per patient has been gaining weight. He follows with a support assistant in the area. States that he takes blood thinner. Multiple allergies to different medications. PFSH Past Medical History Hx Anticoagulant Therapy: Yes (PLAVIX ) Arthritis: No Asthma: Yes Atrial Fibrillation: No Blood Disorders: No Heart Rhythm Problems: Yes Cancer: Yes (PROSTATE CANCER ) Cardiac Catheterization: Yes Cardiovascular Problems: Yes High Cholesterol: Yes Chemotherapy: No Chest Pain: Yes Congestive Heart Failure: Yes (pt states he had it here in [facility] May/Jun 2017) COPD: Yes Cerebrovascular Accident: No Coronary Artery Disease: Yes Diabetes: Yes Patient Takes Glucophage: No Diminished Hearing: No Endocrine: Yes Gastrointestinal Disorders: No GERD: No Glaucoma: No Genitourinary: Yes Headaches: Yes Hepatitis: No Hiatal Hernia: No Hypertension: Yes Immune Disorder: No Musculoskeletal: Yes Neurologic: No Psychiatric: No Reproductive: No Respiratory: Yes Integumentary: Yes Immunizations Current: Yes Migraines: No Myocardial Infarction: Yes (X 3-4) Pancreatitis: Yes Pneumonia: Yes (Recent) Radiation Therapy: Yes Seizures: No Sleep Apnea: No Ulcer: Yes Past Surgical History Abdominal Surgery: No AICD: No Appendectomy: No Arteriovenous Shunt: No Cardiac Surgery: Yes (TRIPLE BYPASS) Cholecystectomy: No Coronary Artery Bypass Graft: Yes (x3) Coronary Stent: Yes (X1) Ear Surgery: No Endocrine Surgery: No Eye Surgery: Yes (CATARACT SURGERY) Genitourinary Surgery: No Gynecologic Surgery: No Insulin Pump: No Joint Replacement: No Oral Surgery: No Pacemaker: No Thoracic Surgery: No Tonsillectomy: Yes (CHILD ) Other Surgery: Yes Social History Alcohol Use: No Tobacco Use: No Substance Use: No Allergies-Medications (Allergen,Severity, Reaction): Coded Allergies: Sulfa (Sulfonamide Antibiotics) (Verified Allergy, Severe, 07/28/17) cefepime (Verified Allergy, Severe, 07/11/17) ceftaroline fosamil (Verified Allergy, Severe, 07/11/17) ceftriaxone (Verified Allergy, Severe, 07/11/17) chlorpheniramine (Verified Allergy, Severe, "MAKES ME FEEL SICK, 07/11/17) diatrizoate meglumine (Verified Allergy, Severe, 07/11/17) doxycycline (Verified Allergy, Severe, 07/11/17) gadobenic acid (Verified Allergy, Severe, 07/11/17) gadodiamide (Verified Allergy, Severe, 07/11/17) gadoteridol (Verified Allergy, Severe, 07/11/17) hydroxyzine (Verified Allergy, Severe, 07/11/17) iodixanol (Verified Allergy, Severe, 07/11/17) iohexol (Verified Allergy, Severe, 07/11/17) levofloxacin (Verified Allergy, Severe, 07/11/17) midazolam (Verified Allergy, Severe, HURT ALL OVER, 07/11/17) penicillin G (Verified Allergy, Severe, RASH,FEVER, 07/11/17) Uncoded Allergies: metopro (Allergy, Severe, 03/26/17) Reported Meds & Prescriptions Reported Meds & Active Scripts Active Furosemide 20 Mg Tab 20 Mg PO DAILY 5 Days Plavix (Clopidogrel Bisulfate) 75 Mg Tab 75 Mg PO DAILY Lasix (Furosemide) 40 Mg Tab 40 Mg PO DAILY Reported Combivent Respimat Inh (Ipratropium-Albuterol Inh) 20-100 Skilled Nursing/Act Aero 1 Puff INH DIRECTED PRN Prednisone 20 Mg Tab 40 Mg PO DAILY Guaifenesin ER (Guaifenesin) 600 Mg Tab.er.12h 600 Mg PO DAILY Co Q 10 (Coenzyme Q10 (Ubidecarenone)) 100 Mg-5 Unit Cap 100 Mg PO DAILY Multiple Vitamin 1 Tab 2 Tab PO DAILY Lisinopril 2.5 Mg Tab 2.5 Mg PO DAILY Vitamin C (Ascorbic Acid) 1,000 Mg Tablet.er 1,000 Mg PO DAILY Lantus Inj (Insulin Glargine) 100 Unit/Ml Inj 30 Units SQ DAILY IN THE AM Atorvastatin (Atorvastatin Calcium) 40 Mg Tab 40 Mg PO HS Potassium Chloride ER (Potassium Chloride) 20 Meq Tab 20 Meq PO DAILY Lantus Inj (Insulin Glargine) 1,000 Unit/10 Ml Vial 15 Units SQ HS Tamsulosin (Tamsulosin HCl) 0.4 Mg Cap 0.4 Mg PO HS Symbicort Inh (Budesonide/Formoterol Fumarate) 80-4.5 Mcg/Act Aero 1 Puff INH Q12HR Novolog Inj (Insulin Aspart) 1,000 Unit/10 Ml Vial 0 SQ DIRECTED Sliding Scale as directed. Gabapentin 100 Mg Cap 100 Mg PO TID Aspirin 81 (Aspirin) 81 Mg Tabdr 81 Mg PO DAILY Review of Systems Except as stated in HPI: all other systems reviewed are Neg Physical Exam Narrative GENERAL: SKIN: Warm and dry. HEAD: Atraumatic. Normocephalic. EYES: Pupils equal and round. No scleral icterus. No injection or drainage. ENT: No nasal bleeding or discharge. Mucous membranes pink and moist. Tongue is midline. No uvula deviation. NECK: Trachea midline. No JVD. CARDIOVASCULAR: Regular rate and rhythm. No murmurs, S3, S4. RESPIRATORY: No accessory muscle use. Clear to auscultation, mild rales heard in the lower lung [place]. Breath sounds equal bilaterally. GASTROINTESTINAL: Abdomen soft, non-tender, nondistended. Hepatic and splenic margins not palpable. MUSCULOSKELETAL: Extremities without clubbing, cyanosis, or edema. No obvious deformities. Full range of motion of the upper and lower extremities bilaterally. 2+ pulses bilaterally. Patient does have pitting edema on the feet bilaterally of 1+. NEUROLOGICAL: Awake and alert. No obvious cranial nerve deficits. Motor grossly within normal limits. Five out of 5 muscle strength in the arms and legs. Normal speech. PSYCHIATRIC: Appropriate mood and affect; insight and judgment normal. Data Data Last Documented VS Vital Signs Date Time Temp Pulse Resp B/P (MAP) Pulse Ox O2 Delivery O2 Flow Rate FiO2 11/22/17 17:23 95 22 147/60 (89) 95 Nasal Cannula 3.00 11/22/17 12:26 98.3 Orders Orders Electrocardiogram (11/22/17 12:35) Complete Blood Count With Diff (11/22/17 12:35) Comprehensive Metabolic Panel (11/22/17 12:35) Ckmb (Isoenzyme) Profile (11/22/17 12:35) Troponin I (11/22/17 12:35) B-Type Natriuretic Peptide (11/22/17 12:35) Prothrombin Time / Inr (Pt) (11/22/17 12:35) Act Partial Throm Time (Ptt) (11/22/17 12:35) Magnesium (Mg) (11/22/17 12:35) Chest, Single Ap (11/22/17 12:35) Iv Access Insert/Monitor (11/22/17 12:35) Ecg Monitoring (11/22/17 12:35) Oximetry (11/22/17 12:35) Furosemide Inj (Lasix Inj) (11/22/17 13:00) CKMB (11/22/17 13:01) CKMB% (11/22/17 13:01) Blood Glucose (11/22/17 13:46) Albuterol-Ipratropium Neb (Duoneb Neb) (11/22/17 14:00) Ventilation & Perfusion Scan (11/22/17 ) Ckmb (Isoenzyme) Profile (11/22/17 16:01) Ckmb (Isoenzyme) Profile (11/22/17 19:01) Troponin I (11/22/17 16:01) Troponin I (11/22/17 19:01) Electrocardiogram (11/22/17 16:01) Electrocardiogram (11/22/17 19:01) Ed Discharge Order (11/22/17 17:35) Labs Laboratory Tests Test 11/22/17 13:01 White Blood Count 11.0 TH/MM3 Red Blood Count 5.01 MIL/MM3 Hemoglobin 15.1 GM/DL Hematocrit 44.7 % Mean Corpuscular Volume 89.1 FL Mean Corpuscular Hemoglobin 30.1 PG Mean Corpuscular Hemoglobin Concent 33.7 % Red Cell Distribution Width 14.7 % Platelet Count 240 TH/MM3 Mean Platelet Volume 8.7 FL Neutrophils (%) (Auto) 66.9 % Lymphocytes (%) (Auto) 13.7 % Monocytes (%) (Auto) 9.4 % Eosinophils (%) (Auto) 8.9 % Basophils (%) (Auto) 1.1 % Neutrophils # (Auto) 7.4 TH/MM3 Lymphocytes # (Auto) 1.5 TH/MM3 Monocytes # (Auto) 1.0 TH/MM3 Eosinophils # (Auto) 1.0 TH/MM3 Basophils # (Auto) 0.1 TH/MM3 CBC Comment DIFF FINAL Differential Comment Prothrombin Time 10.0 SEC Prothromb Time International Ratio 1.0 RATIO Activated Partial Thromboplast Time 25.0 SEC Blood Urea Nitrogen 39 MG/DL Creatinine 1.84 MG/DL Random Glucose 61 MG/DL Total Protein 8.2 GM/DL Albumin 3.9 GM/DL Calcium Level 9.6 MG/DL Magnesium Level 2.0 MG/DL Alkaline Phosphatase 87 U/L Aspartate Amino Transf (AST/SGOT) 24 U/L Alanine Aminotransferase (ALT/SGPT) 32 U/L Total Bilirubin 0.4 MG/DL Sodium Level 139 MEQ/L Potassium Level 4.9 MEQ/L Chloride Level 103 MEQ/L Carbon Dioxide Level 26.7 MEQ/L Anion Gap 9 MEQ/L Estimat Glomerular Filtration Rate 35 ML/MIN Total Creatine Kinase 181 U/L Creatine Kinase MB 4.6 NG/ML Troponin I LESS THAN 0.02 NG/ML B-Type Natriuretic Peptide 16 PG/ML MDM Medical Decision Making Medical Screen Exam Complete: Yes Emergency Medical Condition: Yes Medical Record Reviewed: Yes Interpretation(s) CBC & BMP Diagram 11/22/17 13:01 Total Protein 8.2, Albumin 3.9, Calcium Level 9.6, Magnesium Level 2.0, Alkaline Phosphatase 87, Aspartate Amino Transf (AST/SGOT) 24, Alanine Aminotransferase (ALT/SGPT) 32, Total Bilirubin 0.4 Last Impressions Chest X-Ray 11/22/17 1235 Signed Impressions: Service Date/Time: Wednesday, November 22, 2017 13:04 - CONCLUSION: 1. No acute cardiopulmonary abnormality is identified. There is a stable linear scar at the lung bases. 2. Stable findings indicating prior CABG. Ronnell Fernandes MD Lung Scan-V Nuclear Medicine 11/22/17 0000 Signed Impressions: Service Date/Time: Wednesday, November 22, 2017 15:23 - CONCLUSION: Low probability for pulmonary embolism. Aron Mcguire MD troponin and CKMB negative BNP WNL coags WNL Differential Diagnosis CHF versus COPD versus CHF exacerbation versus fluid overload versus kidney failure versus asthma Narrative Course 82-year-old male that presents to the ED for evaluation of possible CHF exacerbation. Labs and imaging were ordered. Labs and imaging showed no sign of acute disease. Unclear telemetry of the symptoms. Possible CHF. I discussed the case with my attending who recommends VQ scan. Patient was concerned so I spoke with the patient's support assistant as well. Patient's support assistant, Dr Montoya states that patient can follow-up outpatient in his office as patient had a recent stress test and recommended that he follows up with him. VQ scan was done and was negative. Patient was reassured. Unclear of the patient's symptoms were likely multifactorial. Patient does appear to have some fluid on his legs but appears to be minimal. At this time I do recommend continuing taking his Lasix but recommended that he does not once a day but add 20 mg at night to help with symptoms. Patient understands that he needs to follow with a support assistant. Family agrees with plan. Patient was told to follow-up with support assistant. See ED worsening symptoms. Diagnosis Primary Impression: CHF exacerbation Qualified Codes: I50.9 - Heart failure, unspecified Patient Instructions: General Instructions Additional Instructions: Take medication as prescribed only at night. Your regular lasix (furosemide) 40 mg take during the morning. F/u with your support assistant. See ED if worst. Med/Other Pt SpecificInfo: Prescription(s) given Scripts Furosemide (Furosemide) 20 Mg Tab 20 MG PO DAILY for 5 Days, #5 TAB 0 Refills Prov: Shade Clemons MD 11/22/17 Disposition: 01 DISCHARGE HOME Condition: Stable Alverto Erazo Nov 22, 2017 13:26
[2017-11-22 13:27] LABS: ALBUMIN 3.9 GM/DL (3.4-5.0); ALT (GPT) 32 U/L (12-78); AST (GOT) 24 U/L (15-37); BICARBONATE 26.7 MEQ/L (21.0-32.0); BLOOD UREA NITROGEN 39 MG/DL (7-18); CALCIUM 9.6 MG/DL (8.5-10.1); CHLORIDE 103 MEQ/L (98-107); CREATININE 1.84 MG/DL (0.60-1.30); GLOMERULAR FILTRATION RATE 35 ML/MIN (>89); GLUCOSE,RANDOM 61 MG/DL (74-106); SODIUM (NA) 139 MEQ/L (136-145)
[2017-11-22 13:31] LABS: ALKALINE PHOSPHATASE 87 U/L (45-117); TOTAL BILIRUBIN ADULT 0.4 MG/DL (0.2-1.0); TOTAL PROTEIN 8.2 GM/DL (6.4-8.2); TROPONIN I LESS THAN 0.02 NG/ML (0.02-0.05)
--- NOTE | 2017-11-22 13:31 | RADRPT ---
EXAM DATE/TIME: 11/22/2017 13:04 [facility] COMPARISON: CHEST SINGLE AP, July 10, 2017, 15:55. CHEST SINGLE AP, July 28, 2017, 19:15. INDICATIONS : Shortness of breath. MEDICAL HISTORY : Congestive heart failure. Cardiovascular disease. SURGICAL HISTORY : CABG. ENCOUNTER: Initial ACUITY: 1 day PAIN SCORE: 3/10 LOCATION: Bilateral chest FINDINGS: Portable AP view of the chest demonstrates a normal-sized cardiac silhouette with calcification of th e aorta. Patient is post CABG and median sternotomy. Linear opacities are present at the lung bases. No pleural effusion, airspace consolidation, or pneumothorax is visualized. The bones and soft tissue s demonstrate no acute finding. CONCLUSION: 1. No acute cardiopulmonary abnormality is identified. There is a stable linear scar at the lung base s. 2. Stable findings indicating prior CABG. Ronnell Fernandes MD on November 22, 2017 at 13:27 Board Certified Radiologist. This report was verified electronically.
[2017-11-22] MEDS ORDERED: RESP: ALBUTEROL 2.5 MG/IPRATROPIUM 0.5 MG NEB (SCH) INH ONE (14:00)
[2017-11-22 15:38] VITALS: BP 138/70; PULSE 107; RESP 18; O2SAT 97
[2017-11-22] MEDS ORDERED: FURO20TA PO (17:13)
[2017-11-22 17:23] VITALS: BP 147/60; PULSE 95; RESP 22; O2SAT 95
--- NOTE | 2017-11-22 17:28 | RADRPT ---
EXAM DATE/TIME: 11/22/2017 15:23 [facility] COMPARISON: CHEST SINGLE AP, November 22, 2017, 13:04. INDICATIONS : Shortness of breath. DOSE: 8.1 mCi Tc99m MAA IV 2.8 mCi Tc99m DTPA aerosol MEDICAL HISTORY : Carcinoma, prostate. Chronic obstructive pulmonary disease. Congestive heart failure. SURGICAL HISTORY : Coronary artery stent. CABG ENCOUNTER: Initial ACUITY: 1 day PAIN SCALE: 2/10 LOCATION: Bilateral chest TECHNIQUE: Following five minutes of tidal breathing of DTPA aerosol, planar images of the lungs were performed in eight projections. The patient was then injected with MAA, and eight-view perfusion scan was perf ormed. FINDINGS: There is a homogeneous pattern of aerosol delivery to the periphery of both lungs. No focal ventilat ory defects are seen. The perfusion lung scan demonstrates a homogenous pattern of uptake in both lungs. No segmental or s ubsegmental defects are seen. CONCLUSION: Low probability for pulmonary embolism. Aron Mcguire MD on November 22, 2017 at 17:25 Board Certified Radiologist. This report was verified electronically.
--- NOTE | 2017-11-23 21:39 | EKG ---
Date Performed: 11/22/2017 Time Performed: 12:54:05 PTAGE: 82 years EKG: Sinus rhythm NORMAL ECG NO PREVIOUS TRACING DOCTOR: Maxwell Hamilton Interpretating Date/Time 11/23/2017 21:37:38
== END 2017-11-22 18:16 | disposition home or self-care (01) ==
LOC: NEPE 12:04
DX: I50.9 Heart failure, unspecified (principal); I11.0 Hypertensive heart disease with heart failure; R06.02 Shortness of breath; M79.89 Other specified soft tissue disorders; J44.9 Chronic obstructive pulmonary disease, unspecified; E11.9 Type 2 diabetes mellitus without complications; I25.10 Atherosclerotic heart disease of native coronary artery without angina pectoris; I25.2 Old myocardial infarction; Z87.19 Personal history of other diseases of the digestive system
CPT/HCPCS: 71045; 78582; 80053; 82550; 82552; 83735; 83880; 84484; 85025; 85610; 85730; 93005; 96374; 99285; A9540; A9567; J1940

== ENCOUNTER → 2018-01-05 | Outpatient (CLI) | payer MEDICARE ==
[~2018-01-05] MED LIST changes: +FURO20TA PO
--- NOTE | 2018-01-06 08:30 | RSPPFT ---
DATE OF PROCEDURE: 01/05/18 COMMENTS: VOLUMES DYNAMIC: FVC normal; FEV1 mildly reduced. STATIC: TLC mildly reduced; FRC and RV normal. FLOWS: FEV1% moderately reduced; FEF 25-75 severely reduced. DIFFUSION: Moderately reduced. FLOW VOLUME LOOP: Pattern of variable intrathoracic airways obstruction. IMPRESSION: Moderate obstructive ventilatory defect with reduction in diffusion and mild co-existent restriction. No improvement post-bronchodilator noted.
== END ==
LOC: HRSP 13:13
PROVIDERS: ATTEND Internal Medicine
DX: J44.9 Chronic obstructive pulmonary disease, unspecified (principal); J45.909 Unspecified asthma, uncomplicated
CPT/HCPCS: 94618

== ENCOUNTER 2018-01-26 14:19 | Emergency (ER) | payer MEDICARE ==
[2018-01-26 14:26] VITALS: BP 144/63; PULSE 91; RESP 24; TEMP 98.4; O2SAT 95
[2018-01-26] MEDS ORDERED: DULE100A INH (15:50)
[2018-01-26] MEDS ORDERED: IPRAAER INH (15:50)
[2018-01-26] MEDS ORDERED: LISI10TA3 PO (15:50)
[2018-01-26] MEDS ORDERED: CARNPOW (15:50)
[2018-01-26 16:15] VITALS: BP 144/67; PULSE 75; RESP 19; O2SAT 97
[2018-01-26 16:15] LABS: AUTOMATED NEUTROPHIL # 6.7 TH/MM3 (1.8-7.7); BASOPHIL # 0.1 TH/MM3 (0-0.2); EOSINOPHIL # 0.9 TH/MM3 (0-0.4); EOSINOPHIL % 9.3 % (0.0-4.0); HEMATOCRIT 36.7 % (39.0-51.0); HEMOGLOBIN 12.9 GM/DL (13.0-17.0); LYMPH % 11.7 % (9.0-44.0); LYMPHOCYTE # 1.1 TH/MM3 (1.0-4.8); MEAN CELL VOLUME 91.2 FL (80.0-100.0); MEAN CORPUSCULAR HEMOGLOBIN 32.1 PG (27.0-34.0); MEAN CORPUSCULAR HGB CONC 35.2 % (32.0-36.0); MEAN PLATELET VOLUME 8.9 FL (7.0-11.0); MONO % 8.7 % (0.0-8.0); MONOCYTE # 0.8 TH/MM3 (0-0.9); NEUT % 69.3 % (16.0-70.0); PLATELET COUNT 221 TH/MM3 (150-450); RED BLOOD COUNT 4.03 MIL/MM3 (4.50-5.90); RED CELL DISTRIBUTION WIDTH 14.3 % (11.6-17.2); WHITE BLOOD COUNT 9.6 TH/MM3 (4.0-11.0)
[2018-01-26 16:25] LABS: PROTHROMBIN TIME - PATIENT 10.2 SEC (9.8-11.6)
[2018-01-26 16:27] LABS: ALBUMIN 3.5 GM/DL (3.4-5.0); ALT (GPT) 39 U/L (12-78); AST (GOT) 32 U/L (15-37); BICARBONATE 23.9 MEQ/L (21.0-32.0); BLOOD UREA NITROGEN 49 MG/DL (7-18); CALCIUM 9.1 MG/DL (8.5-10.1); CHLORIDE 101 MEQ/L (98-107); GLOMERULAR FILTRATION RATE 41 ML/MIN (>89); GLUCOSE,RANDOM 188 MG/DL (74-106); SODIUM (NA) 137 MEQ/L (136-145)
--- NOTE | 2018-01-26 16:27 | RADRPT ---
EXAM DATE: 01/26/2018 4:06 PM EDT AGE/SEX: 82 years / Male INDICATIONS: Short of breath. CLINICAL DATA: This is the patient's initial encounter. Patient reports that signs and symptoms have been present for 1 day and indicates a pain score of 0/10. MEDICAL/SURGICAL HISTORY: Chronic obstructive pulmonary disease. Congestive heart failure. chr onic bronchitis CABG. COMPARISON: [facility], CHEST SINGLE AP, 11/22/2017. . FINDINGS: A single AP view of the chest demonstrates the lungs to be symmetrically aerated without evidence of mass, infiltrate or effusion. The cardiomediastinal contours are unremarkable. The patient is post m edian sternotomy. Osseous structures are intact. CONCLUSION: No acute cardiopulmonary findings. Stable compared to previous Electronically signed by: Mirza Aburto MD 01/26/2018 4:26 PM EDT
[2018-01-26 16:36] LABS: ALKALINE PHOSPHATASE 76 U/L (45-117); TOTAL BILIRUBIN ADULT 0.3 MG/DL (0.2-1.0); TOTAL PROTEIN 7.3 GM/DL (6.4-8.2); TROPONIN I LESS THAN 0.02 NG/ML (0.02-0.05)
--- NOTE | 2018-01-26 17:30 | PD ---
HPI Chief Complaint: Respiratory Distress Time Seen by Provider: 15:21 Travel History International Travel<30 days: No Contact w/Intl Traveler<30days: No Traveled to known affect area: No History of Present Illness HPI 82-year-old male complains of shortness of breath. Patient has history of COPD and CHF. Patient has been seen by personal physician and recovery operator helper. Patient states that he took a nebulizer treatment today. Patient also takes Lasix on a as needed basis for shortness of breath and lower extremity swelling. Patient took Lasix 80 mg 3 days ago and again yesterday. Patient states that he gained weight without Lasix and lost weight with Lasix. Patient also has home O2 as needed for shortness of breath. Patient has history of hypertension, diabetes, hyperlipidemia, prostate cancer, and skin cancer. Patient has history of CAD status post CABG and stent placement. Patient is on Plavix. PFSH Past Medical History Hx Anticoagulant Therapy: Yes Arthritis: No Asthma: Yes Atrial Fibrillation: No Blood Disorders: No Heart Rhythm Problems: Yes Cancer: Yes (PROSTATE CANCER, SKIN CA R CHEEK ) Cardiac Catheterization: Yes Cardiovascular Problems: Yes High Cholesterol: Yes Chemotherapy: No Chest Pain: Yes Congestive Heart Failure: Yes (pt states he had it here in [facility] May/Jun 2017) COPD: Yes Cerebrovascular Accident: No Coronary Artery Disease: Yes Diabetes: Yes Patient Takes Glucophage: No Diminished Hearing: No Endocrine: Yes Gastrointestinal Disorders: No GERD: No Glaucoma: No Genitourinary: Yes Headaches: Yes Hepatitis: No Hiatal Hernia: No Hypertension: Yes Immune Disorder: No Musculoskeletal: Yes Neurologic: No Psychiatric: No Reproductive: No Respiratory: Yes Integumentary: Yes Immunizations Current: Yes Migraines: No Myocardial Infarction: Yes (X 3-4) Pancreatitis: Yes Pneumonia: Yes (Recent) Radiation Therapy: Yes Seizures: No Sleep Apnea: No Ulcer: Yes Tetanus Vaccination: < 5 Years Influenza Vaccination: Yes Past Surgical History Abdominal Surgery: No AICD: No Appendectomy: No Arteriovenous Shunt: No Cardiac Surgery: Yes (TRIPLE BYPASS) Cholecystectomy: No Coronary Artery Bypass Graft: Yes (x3) Coronary Stent: Yes (X1) Ear Surgery: No Endocrine Surgery: No Eye Surgery: Yes (CATARACT SURGERY) Genitourinary Surgery: No Gynecologic Surgery: No Insulin Pump: No Joint Replacement: No Oral Surgery: No Pacemaker: No Thoracic Surgery: No Tonsillectomy: Yes Other Surgery: Yes (SKIN CA R CHEEK ) Social History Alcohol Use: No Tobacco Use: No Substance Use: No Allergies-Medications (Allergen,Severity, Reaction): Coded Allergies: Sulfa (Sulfonamide Antibiotics) (Verified Allergy, Severe, 01/26/18) cefepime (Verified Allergy, Severe, 01/26/18) ceftaroline fosamil (Verified Allergy, Severe, 01/26/18) ceftriaxone (Verified Allergy, Severe, 01/26/18) chlorpheniramine (Verified Allergy, Severe, "MAKES ME FEEL SICK, 01/26/18) diatrizoate meglumine (Verified Allergy, Severe, 01/26/18) doxycycline (Verified Allergy, Severe, 01/26/18) gadobenic acid (Verified Allergy, Severe, 01/26/18) gadodiamide (Verified Allergy, Severe, 01/26/18) gadoteridol (Verified Allergy, Severe, 01/26/18) hydroxyzine (Verified Allergy, Severe, 01/26/18) iodixanol (Verified Allergy, Severe, 01/26/18) iohexol (Verified Allergy, Severe, 01/26/18) levofloxacin (Verified Allergy, Severe, 01/26/18) midazolam (Verified Allergy, Severe, HURT ALL OVER, 01/26/18) penicillin G (Verified Allergy, Severe, RASH,FEVER, 01/26/18) Uncoded Allergies: metopro (Allergy, Severe, 03/26/17) Reported Meds & Prescriptions Reported Meds & Active Scripts Active Plavix (Clopidogrel Bisulfate) 75 Mg Tab 75 Mg PO DAILY Lasix (Furosemide) 40 Mg Tab 40 Mg PO DAILY Reported Dulera 120 Act Inh (Mometasone-Formoterol 120 Act Inh) 100-5 Mcg/Act Inh 2 Puff INH BID Combivent Respimat Inh (Ipratropium-Albuterol Inh) 20-100 Senior Care/Act Aero 1 Puff INH QID Carnitine (l) (Levocarnitine (Bulk)) 1 Pow Pow Lisinopril 10 Mg Tab 10 Mg PO DAILY Combivent Respimat Inh (Ipratropium-Albuterol Inh) 20-100 Senior Care/Act Aero 1 Puff INH DIRECTED PRN Prednisone 20 Mg Tab 40 Mg PO DAILY Guaifenesin ER (Guaifenesin) 600 Mg Tab.er.12h 600 Mg PO DAILY Co Q 10 (Coenzyme Q10 (Ubidecarenone)) 100 Mg-5 Unit Cap 100 Mg PO DAILY Multiple Vitamin 1 Tab 2 Tab PO DAILY Vitamin C (Ascorbic Acid) 1,000 Mg Tablet.er 1,000 Mg PO DAILY Lantus Inj (Insulin Glargine) 100 Unit/Ml Inj 30 Units SQ DAILY IN THE AM Atorvastatin (Atorvastatin Calcium) 40 Mg Tab 40 Mg PO HS Potassium Chloride ER (Potassium Chloride) 20 Meq Tab 20 Meq PO DAILY Lantus Inj (Insulin Glargine) 1,000 Unit/10 Ml Vial 15 Units SQ HS Tamsulosin (Tamsulosin HCl) 0.4 Mg Cap 0.4 Mg PO HS Symbicort Inh (Budesonide/Formoterol Fumarate) 80-4.5 Mcg/Act Aero 1 Puff INH Q12HR Novolog Inj (Insulin Aspart) 1,000 Unit/10 Ml Vial 0 SQ DIRECTED Sliding Scale as directed. Gabapentin 100 Mg Cap 100 Mg PO TID Aspirin 81 (Aspirin) 81 Mg Tabdr 81 Mg PO DAILY Review of Systems General / Constitutional: No: Fever Eyes: No: Visual changes HENT: No: Headaches Cardiovascular: No: Chest Pain or Discomfort Respiratory: Positive: Shortness of Breath Gastrointestinal: No: Abdominal Pain Genitourinary: No: Dysuria Musculoskeletal: No: Pain Skin: No Rash Neurologic: No: Weakness Psychiatric: No: Depression Endocrine: No: Polydipsia Hematologic/Lymphatic: No: Easy Bruising Physical Exam Narrative GENERAL: Well-nourished, well-developed patient. SKIN: Focused skin assessment warm/dry. HEAD: Normocephalic. EYES: No scleral icterus. No injection or drainage. NECK: Supple, trachea midline. No JVD or lymphadenopathy. CARDIOVASCULAR: Regular rate and rhythm without murmurs, gallops, or rubs. RESPIRATORY: Breath sounds equal bilaterally. No accessory muscle use. GASTROINTESTINAL: Abdomen soft, non-tender, nondistended. MUSCULOSKELETAL: No cyanosis, or edema. BACK: Nontender without obvious deformity. No CVA tenderness. Neurologic exam normal. Data Data Last Documented VS Vital Signs Date Time Temp Pulse Resp B/P (MAP) Pulse Ox O2 Delivery O2 Flow Rate FiO2 01/26/18 16:15 75 19 144/67 (92) 97 Room Air 01/26/18 14:55 2.00 01/26/18 14:26 98.4 Orders Orders Electrocardiogram (01/26/18 ) Electrocardiogram (01/26/18 15:31) Complete Blood Count With Diff (01/26/18 15:31) Comprehensive Metabolic Panel (01/26/18 15:31) Creatine Kinase (Cpk) (01/26/18 15:31) Troponin I (01/26/18 15:31) B-Type Natriuretic Peptide (01/26/18 15:31) Prothrombin Time / Inr (Pt) (01/26/18 15:31) Act Partial Throm Time (Ptt) (01/26/18 15:31) Thyroid Stimulating Hormone (01/26/18 15:31) Chest, Single Ap (01/26/18 15:31) Iv Access Insert/Monitor (01/26/18 15:31) Ecg Monitoring (01/26/18 15:31) Oximetry (01/26/18 15:31) CKMB (01/26/18 15:45) CKMB% (01/26/18 15:45) Ed Discharge Order (01/26/18 18:29) Labs Laboratory Tests Test 01/26/18 15:45 White Blood Count 9.6 TH/MM3 Red Blood Count 4.03 MIL/MM3 Hemoglobin 12.9 GM/DL Hematocrit 36.7 % Mean Corpuscular Volume 91.2 FL Mean Corpuscular Hemoglobin 32.1 PG Mean Corpuscular Hemoglobin Concent 35.2 % Red Cell Distribution Width 14.3 % Platelet Count 221 TH/MM3 Mean Platelet Volume 8.9 FL Neutrophils (%) (Auto) 69.3 % Lymphocytes (%) (Auto) 11.7 % Monocytes (%) (Auto) 8.7 % Eosinophils (%) (Auto) 9.3 % Basophils (%) (Auto) 1.0 % Neutrophils # (Auto) 6.7 TH/MM3 Lymphocytes # (Auto) 1.1 TH/MM3 Monocytes # (Auto) 0.8 TH/MM3 Eosinophils # (Auto) 0.9 TH/MM3 Basophils # (Auto) 0.1 TH/MM3 CBC Comment DIFF FINAL Differential Comment Prothrombin Time 10.2 SEC Prothromb Time International Ratio 1.0 RATIO Activated Partial Thromboplast Time 25.1 SEC Blood Urea Nitrogen 49 MG/DL Creatinine 1.60 MG/DL Random Glucose 188 MG/DL Total Protein 7.3 GM/DL Albumin 3.5 GM/DL Calcium Level 9.1 MG/DL Alkaline Phosphatase 76 U/L Aspartate Amino Transf (AST/SGOT) 32 U/L Alanine Aminotransferase (ALT/SGPT) 39 U/L Total Bilirubin 0.3 MG/DL Sodium Level 137 MEQ/L Potassium Level 4.5 MEQ/L Chloride Level 101 MEQ/L Carbon Dioxide Level 23.9 MEQ/L Anion Gap 12 MEQ/L Estimat Glomerular Filtration Rate 41 ML/MIN Total Creatine Kinase 418 U/L Creatine Kinase MB 4.1 NG/ML Creatine Kinase MB % 1.0 % Troponin I LESS THAN 0.02 NG/ML B-Type Natriuretic Peptide 37 PG/ML Thyroid Stimulating Hormone 3rd Gen 5.590 uIU/ML MDM Medical Decision Making Medical Screen Exam Complete: Yes Emergency Medical Condition: Yes Interpretation(s) Last Impressions Chest X-Ray 01/26/18 1531 Signed Impressions: CONCLUSION: No acute cardiopulmonary findings. Stable compared to previous Differential Diagnosis Differential diagnosis including exacerbation of COPD, acute exacerbation CHF, electrolyte abnormality, bronchitis, pneumonia, PE, pneumothorax. Narrative Course 82-year-old male with shortness of breath. History of COPD and CHF. Diagnosis Primary Impression: Dyspnea Qualified Codes: R06.00 - Dyspnea, unspecified Additional Impressions: History of COPD History of chronic CHF Patient Instructions: General Instructions Additional Instructions: Continue with nebulizer treatment and Lasix as directed. Follow-up with personal physician. Return if worse. Med/Other Pt SpecificInfo: No Change to Meds Disposition: 01 DISCHARGE HOME Condition: Stable Braulio Fowler MD Jan 26, 2018 17:29
[2018-01-26 18:43] VITALS: BP 138/60; PULSE 80; RESP 22; O2SAT 94
--- NOTE | 2018-01-26 20:54 | EKG ---
Date Performed: 01/26/2018 Time Performed: 15:00:25 PTAGE: 82 years EKG: Sinus rhythm NORMAL ECG PREVIOUS TRACING : 11/22/2017 12.54 No significant change from previous tracing noted. DOCTOR: Joshua Raza Interpretating Date/Time 01/26/2018 20:53:12
== END 2018-01-26 18:43 | disposition home or self-care (01) ==
LOC: NEPC 14:19
DX: R06.00 Dyspnea, unspecified (principal); J44.9 Chronic obstructive pulmonary disease, unspecified; I50.9 Heart failure, unspecified; I11.0 Hypertensive heart disease with heart failure; E78.00 Pure hypercholesterolemia, unspecified; I25.10 Atherosclerotic heart disease of native coronary artery without angina pectoris; E11.9 Type 2 diabetes mellitus without complications; I25.2 Old myocardial infarction; Z85.46 Personal history of malignant neoplasm of prostate; Z95.1 Presence of aortocoronary bypass graft; Z95.5 Presence of coronary angioplasty implant and graft; Z79.01 Long term (current) use of anticoagulants; Z79.4 Long term (current) use of insulin
CPT/HCPCS: 71045; 80053; 82550; 82552; 83880; 84443; 84484; 85025; 85610; 85730; 93005

== ENCOUNTER 2018-05-03 13:52 | Observation (INO) ==
[2018-05-03 15:29] LABS: Baso % (Auto) 0.2 % (0.0-2.0); Eos # (Auto) 0.2 th/mm3 (0.0-0.4); Hematocrit 42.7 % (39.0-51.0); Hemoglobin 14.7 gm/dL (13.0-17.0); Lymph # (Auto) 0.7 th/mm3 (1.0-4.8); Lymph % (Auto) 4.7 % (9.0-44.0); Mean Corpuscular HGB Conc 34.4 % (32.0-36.0); Mean Corpuscular Hemoglobin 31.9 pg (27.0-34.0); Mean Corpuscular Volume 92.6 fL (80.0-100.0); Mean Platelet Volume 9.8 fL (7.0-11.0); Mono # (Auto) 0.6 th/mm3 (0.0-0.9); Neut # (Auto) 13.1 th/mm3 (1.8-7.7); Neut % (Auto) 90.1 % (16.0-70.0); Platelet Count 176 th/mm3 (150-450); Red Blood Count 4.61 mil/mm3 (4.50-5.90); Red Cell Distribution Width 15.1 % (11.6-17.2); White Blood Count 14.5 th/mm3 (4.0-11.0)
[2018-05-03 15:43] LABS: Activated Partial Thrombo Time 21.2 sec (24.3-30.1); INR 0.9 Ratio; Prothrombin Time 9.5 sec (9.8-11.6)
[2018-05-03 16:04] LABS: Alanine Aminotransferase 54 U/L (12-78); Albumin 3.6 g/dL (3.4-5.0); Alkaline Phosphatase 60 U/L (45-117); Anion Gap 8 meq/L (5-15); Aspartate Aminotransferase 34 U/L (15-37); Blood Urea Nitrogen 31 mg/dL (7-18); Calcium 9.3 mg/dL (8.5-10.1); Carbon Dioxide 29.3 meq/L (21.0-32.0); Chloride 106 meq/L (98-107); Creatine Kinase 124 U/L (39-308); Glomerular Filtration Rate 49 mL/min (>89); Glucose,Random 160 mg/dL (74-106); Lipase 256 U/L (73-393); Magnesium 2.1 mg/dL (1.5-2.5); Potassium 4.7 meq/L (3.5-5.1); Sodium 143 meq/L (136-145)
--- NOTE | 2018-05-03 16:06 | ED ---
HPI General Chief Complaint: Chest Pain Stated Complaint: Chest Complaint Time Seen by Provider: 05/03/18 15:47 Source: patient Mode of arrival: EMS Limitations: no limitations History of Present Illness HPI narrative: The patient is an 83-year-old man with history of CAD, CHF, hypercholesterolemia, COPD, previous MIs, diabetes mellitus and prostate cancer presented with multiple complaints. He stated for the past 2 weeks he has been having problems with constipation and diarrhea and has been seen at medical billing coordinator for this. He is also have been having increased blood pressure and was advised by his primary to measure his blood pressure on a daily basis which he has been having. On arrival here his blood pressure was 170 systolic.He also reported this morning having a small episode of chest tightness and discomfort fell a sharp pain and that he had palpitations. MD complaint: chest pain Duration: intermittent Onset: during rest Pain location: left chest Severity: similar to previous episodes Severity scale (1-10): 9 Quality: tightness Relieving factors: rest Exacerbating factors: nothing Related Data Home Medications Medication Instructions Recorded Confirmed albuterol sulfate 2 puff INHALATION Q6H PRN 03/05/18 05/03/18 ascorbic acid (vitamin C) [Vitamin 1,000 mg PO DAILY 03/05/18 05/03/18 C] atorvastatin [Lipitor] 40 mg PO DAILY 03/05/18 05/03/18 budesonide-formoterol [Symbicort] 2 puff INHALATION BID 03/05/18 05/03/18 clopidogrel [Plavix] 75 mg PO DAILY 03/05/18 05/03/18 coenzyme Q10 [CoQ-10] 100 mg PO DAILY 03/05/18 05/03/18 furosemide 40 mg PO DAILY 03/05/18 05/03/18 guaifenesin [Mucinex] 600 mg PO DAILY 03/05/18 05/03/18 insulin aspart U-100 [Novolog 1 sliding scale dose SUB-Q UD 03/05/18 05/03/18 U-100 Insulin aspart] insulin glargine [Lantus U-100 15 unit SUB-Q HS 03/05/18 05/03/18 Insulin] insulin glargine [Lantus U-100 30 unit SUB-Q DAILY 03/05/18 05/03/18 Insulin] levocarnitine [L-Carnitine] 500 mg PO DAILY 03/05/18 05/03/18 mometasone-formoterol [Dulera] 2 puff INHALATION BID 03/05/18 05/03/18 multivitamin 1 tab PO DAILY 03/05/18 05/03/18 potassium chloride 20 meq PO DAILY 03/05/18 05/03/18 tamsulosin 0.4 mg PO DAILY 03/05/18 05/03/18 atorvastatin [Lipitor] 40 mg PO DAILY 05/03/18 05/03/18 guaifenesin [Mucinex] 600 mg PO Q12H 05/03/18 05/03/18 lisinopril 10 mg PO DAILY 05/03/18 05/03/18 prednisone 5 mg PO DAILY 05/03/18 05/03/18 Previous Rx's Medication Instructions Recorded ondansetron HCl [Zofran] 4 mg PO Q6-8H PRN #10 tab 04/22/18 Allergies Allergy/AdvReac Type Severity Reaction Status Date / Time cefepime Allergy Severe Rash Verified 03/05/18 20:57 ceftaroline fosamil Allergy Severe Rash Verified 03/05/18 20:57 ceftriaxone Allergy Severe Rash Verified 03/05/18 20:57 chlorpheniramine Allergy Severe "MAKES ME Verified 01/26/18 14:30 FEEL SICK diatrizoate meglumine Allergy Severe Rash Verified 03/05/18 20:57 doxycycline Allergy Severe Rash Verified 03/05/18 20:57 gadobenic acid Allergy Severe Rash Verified 03/05/18 20:57 gadodiamide Allergy Severe Rash Verified 03/05/18 20:57 gadoteridol Allergy Severe Rash Verified 03/05/18 20:57 hydroxyzine Allergy Severe Rash Verified 03/05/18 20:57 iodixanol Allergy Severe Rash Verified 03/05/18 20:57 iohexol Allergy Severe Rash Verified 03/05/18 20:57 levofloxacin Allergy Severe Rash Verified 03/05/18 20:57 midazolam Allergy Severe HURT ALL Verified 01/26/18 14:30 OVER penicillin G Allergy Severe RASH,FEVER Verified 01/26/18 14:30 Sulfa (Sulfonamide Allergy Severe Rash Verified 03/05/18 20:57 Antibiotics) metopro Allergy Severe Rash Uncoded 03/05/18 20:57 Review of Systems ROS: all other systems reviewed are negative [facility] Medical History Medical History COPD (chronic obstructive pulmonary disease) (Acute) Congestive heart failure (Acute) Coronary artery disease (Acute) Diabetes mellitus (Acute) Fungal infection of lung (Acute) Hypercholesterolemia (Acute) Myocardial infarction (Acute) Prostate cancer (Acute) Surgical History Surgical History H/O foot surgery (Acute) Hx of CABG (Acute) Hx of cataract surgery (Acute) Hx of heart artery stent (Acute) S/P tonsillectomy and adenoidectomy (Acute) Social History Social History Substance History: No History of Abuse Second Hand Smoke Exposure: No Smoking Status: Former smoker Tobacco Type: Cigarettes How Often Do You Have a Drink Containing Alcohol: Never Recent Travel in [facility] within the Last 8 Weeks: No Recent Out of Country Travel within the Last 8 Weeks: No Immunization History Tetanus Immunization: Unsure Exam Narrative Exam Narrative: GENERAL: Alert and oriented in no distress SKIN: Focused skin assessment warm/dry. HEAD: Atraumatic. Normocephalic. EYES: Pupils equal and round. No scleral icterus. No injection or drainage. ENT: No nasal bleeding or discharge. Mucous membranes pink and moist. NECK: Trachea midline. No JVD. CARDIOVASCULAR: Regular rate and rhythm. No murmur appreciated. RESPIRATORY: No accessory muscle use. Clear to auscultation. Breath sounds equal bilaterally. GASTROINTESTINAL: Abdomen soft, non-tender, nondistended. Hepatic and splenic margins not palpable. MUSCULOSKELETAL: No obvious deformities. No clubbing. No cyanosis. No edema. NEUROLOGICAL: Awake and alert. No obvious cranial nerve deficits. Motor grossly within normal limits. Normal speech. PSYCHIATRIC: Appropriate mood and affect; insight and judgment normal. Course Hospital Course: he had an initial cardiac cardiac workup was given nitroglycerin with improvement in his blood pressure. No chest pain in the emergency department. He was given aspirin p.o. but he refused to take it. he did have a leukocytosis with a negative UA for infectious process and chest x-ray that was unremarkable. Afebrile. Reevaluation(s) Reevaluation #1: Patient resting comfortably no distress. Notified that that his initial cardiac workup has been negative. Time: 18:00 Initial Documented Vital Signs Temperature 98.8 F 05/03/18 14:14 Pulse Rate 83 05/03/18 14:14 Respiratory Rate 20 05/03/18 14:14 Blood Pressure 189/78 H 05/03/18 14:14 Pulse Oximetry 96 05/03/18 14:14 Last Documented Vital Signs Temperature 97.6 F 05/04/18 03:51 Pulse Rate 72 05/04/18 05:43 Respiratory Rate 19 05/04/18 03:51 Blood Pressure 124/60 05/04/18 03:51 Pulse Oximetry 97 05/04/18 03:51 Medical Decision Making MDM Narrative Medical decision making narrative: Patient with atypical chest pain. Initial cardiac workup has been negative. Will admit for serial cardiac enzymes. Medical Screen Exam Complete: Yes Emergency Medical Condition: Yes Medical Records Medical records reviewed: Yes I reviewed the patient's medical records. Lab Data Lab results reviewed: Yes I reviewed the patient's lab results. Result diagrams: 05/03/18 14:55 05/03/18 14:55 Lab Results 05/03/18 05/03/18 05/03/18 Range/Units 14:55 14:55 14:55 WBC 14.5 H (4.0-11.0) th/mm3 RBC 4.61 (4.50-5.90) mil/mm3 Hgb 14.7 (13.0-17.0) gm/dL Hct 42.7 (39.0-51.0) % MCV 92.6 (80.0-100.0) fL MCH 31.9 (27.0-34.0) pg MCHC 34.4 (32.0-36.0) % RDW 15.1 (11.6-17.2) % Plt Count 176 (150-450) th/mm3 MPV 9.8 (7.0-11.0) fL Neut % (Auto) 90.1 H (16.0-70.0) % Lymph % (Auto) 4.7 L (9.0-44.0) % [place] % (Auto) 4.0 (0.0-8.0) % Eos % (Auto) 1.0 (0.0-4.0) % Baso % (Auto) 0.2 (0.0-2.0) % Neut # (Auto) 13.1 H (1.8-7.7) th/mm3 Lymph # (Auto) 0.7 L (1.0-4.8) th/mm3 [place] # (Auto) 0.6 (0.0-0.9) th/mm3 Eos # (Auto) 0.2 (0.0-0.4) th/mm3 Baso # (Auto) 0.0 (0.0-0.2) th/mm3 WBC Differential . Differential Comment Auto diff final PT 9.5 L (9.8-11.6) sec INR 0.9 Ratio APTT 21.2 L (24.3-30.1) sec Sodium 143 (136-145) meq/L Potassium 4.7 (3.5-5.1) meq/L Chloride 106 (98-107) meq/L Carbon Dioxide 29.3 (21.0-32.0) meq/L Anion Gap 8 (5-15) meq/L BUN 31 H (7-18) mg/dL Creatinine 1.38 H (0.60-1.30) mg/dL Estimated GFR 49 L (>89) mL/min POC Glucose (68-110) mg/dl Random Glucose 160 H (74-106) mg/dL Calcium 9.3 (8.5-10.1) mg/dL Magnesium 2.1 (1.5-2.5) mg/dL Total Bilirubin 0.5 (0.2-1.0) mg/dL AST 34 (15-37) U/L ALT 54 (12-78) U/L Alkaline Phosphatase 60 (45-117) U/L Total Creatine Kinase 124 (39-308) U/L CK-MB (CK-2) 5.2 H (0.5-3.6) ng/mL Troponin I Less than 0.02 L (0.02-0.05) ng/mL Total Protein 7.0 (6.4-8.2) g/dL Albumin 3.6 (3.4-5.0) g/dL Lipase 256 (73-393) U/L Urine Color (Yellw/Straw) Urine Clarity (Clear) Urine pH (5.0-8.5) Ur Specific [place] (1.002-1.035) Urine Protein (Neg-Trace) mg/dL Urine Glucose (UA) (Negative) mg/dL Urine Ketones (Negative) mg/dL Urine Occult Blood (Negative) Urine Nitrate (Negative) Urine Bilirubin (Negative) Urine Urobilinogen (Less than 2) mg/dL Ur Leukocyte Esterase (Negative) Urine RBC (0-3) /hpf Urine WBC (0-5) /hpf Micro UA Comment Ur Microscopic Review Urine Culture Comments 05/03/18 05/03/18 05/03/18 Range/Units 18:20 19:35 21:40 WBC (4.0-11.0) th/mm3 RBC (4.50-5.90) mil/mm3 Hgb (13.0-17.0) gm/dL Hct (39.0-51.0) % MCV (80.0-100.0) fL MCH (27.0-34.0) pg MCHC (32.0-36.0) % RDW (11.6-17.2) % Plt Count (150-450) th/mm3 MPV (7.0-11.0) fL Neut % (Auto) (16.0-70.0) % Lymph % (Auto) (9.0-44.0) % [place] % (Auto) (0.0-8.0) % Eos % (Auto) (0.0-4.0) % Baso % (Auto) (0.0-2.0) % Neut # (Auto) (1.8-7.7) th/mm3 Lymph # (Auto) (1.0-4.8) th/mm3 [place] # (Auto) (0.0-0.9) th/mm3 Eos # (Auto) (0.0-0.4) th/mm3 Baso # (Auto) (0.0-0.2) th/mm3 WBC Differential Differential Comment PT (9.8-11.6) sec INR Ratio APTT (24.3-30.1) sec Sodium (136-145) meq/L Potassium (3.5-5.1) meq/L Chloride (98-107) meq/L Carbon Dioxide (21.0-32.0) meq/L Anion Gap (5-15) meq/L BUN (7-18) mg/dL Creatinine (0.60-1.30) mg/dL Estimated GFR (>89) mL/min POC Glucose 151 H (68-110) mg/dl Random Glucose (74-106) mg/dL Calcium (8.5-10.1) mg/dL Magnesium (1.5-2.5) mg/dL Total Bilirubin (0.2-1.0) mg/dL AST (15-37) U/L ALT (12-78) U/L Alkaline Phosphatase (45-117) U/L Total Creatine Kinase 106 (39-308) U/L CK-MB (CK-2) (0.5-3.6) ng/mL Troponin I Less than 0.02 L (0.02-0.05) ng/mL Total Protein (6.4-8.2) g/dL Albumin (3.4-5.0) g/dL Lipase (73-393) U/L Urine Color Yellow (Yellw/Straw) Urine Clarity Clear (Clear) Urine pH 7.0 (5.0-8.5) Ur Specific [place] 1.005 (1.002-1.035) Urine Protein Negative (Neg-Trace) mg/dL Urine Glucose (UA) Negative (Negative) mg/dL Urine Ketones Negative (Negative) mg/dL Urine Occult Blood Small H (Negative) Urine Nitrate Negative (Negative) Urine Bilirubin Negative (Negative) Urine Urobilinogen Less than 2 (Less than 2) mg/dL Ur Leukocyte Esterase Negative (Negative) Urine RBC Less than 1 (0-3) /hpf Urine WBC Less than 1 (0-5) /hpf Micro UA Comment Culture not ind Ur Microscopic Review Not Reportable Urine Culture Comments Culture not ind 05/03/18 Range/Units 22:40 WBC (4.0-11.0) th/mm3 RBC (4.50-5.90) mil/mm3 Hgb (13.0-17.0) gm/dL Hct (39.0-51.0) % MCV (80.0-100.0) fL MCH (27.0-34.0) pg MCHC (32.0-36.0) % RDW (11.6-17.2) % Plt Count (150-450) th/mm3 MPV (7.0-11.0) fL Neut % (Auto) (16.0-70.0) % Lymph % (Auto) (9.0-44.0) % [place] % (Auto) (0.0-8.0) % Eos % (Auto) (0.0-4.0) % Baso % (Auto) (0.0-2.0) % Neut # (Auto) (1.8-7.7) th/mm3 Lymph # (Auto) (1.0-4.8) th/mm3 [place] # (Auto) (0.0-0.9) th/mm3 Eos # (Auto) (0.0-0.4) th/mm3 Baso # (Auto) (0.0-0.2) th/mm3 WBC Differential Differential Comment PT (9.8-11.6) sec INR Ratio APTT (24.3-30.1) sec Sodium (136-145) meq/L Potassium (3.5-5.1) meq/L Chloride (98-107) meq/L Carbon Dioxide (21.0-32.0) meq/L Anion Gap (5-15) meq/L BUN (7-18) mg/dL Creatinine (0.60-1.30) mg/dL Estimated GFR (>89) mL/min POC Glucose (68-110) mg/dl Random Glucose (74-106) mg/dL Calcium (8.5-10.1) mg/dL Magnesium (1.5-2.5) mg/dL Total Bilirubin (0.2-1.0) mg/dL AST (15-37) U/L ALT (12-78) U/L Alkaline Phosphatase (45-117) U/L Total Creatine Kinase 97 (39-308) U/L CK-MB (CK-2) (0.5-3.6) ng/mL Troponin I Less than 0.02 L (0.02-0.05) ng/mL Total Protein (6.4-8.2) g/dL Albumin (3.4-5.0) g/dL Lipase (73-393) U/L Urine Color (Yellw/Straw) Urine Clarity (Clear) Urine pH (5.0-8.5) Ur Specific [place] (1.002-1.035) Urine Protein (Neg-Trace) mg/dL Urine Glucose (UA) (Negative) mg/dL Urine Ketones (Negative) mg/dL Urine Occult Blood (Negative) Urine Nitrate (Negative) Urine Bilirubin (Negative) Urine Urobilinogen (Less than 2) mg/dL Ur Leukocyte Esterase (Negative) Urine RBC (0-3) /hpf Urine WBC (0-5) /hpf Micro UA Comment Ur Microscopic Review Urine Culture Comments Imaging Data Radiologist's impression: Chest X-Ray 05/03/18 14:32 CONCLUSION: Sternal wires and clips suggesting CABG. Lungs are clear. ECG Data Attestation: I personally reviewed and interpreted this ECG as follows: Interpretation: Normal sinus rhythm with occasional premature ventricular complexes. 78 bpm QTc 381 ms NH interval 144 ms. Normal axis. Nonspecific ST- T wave abnormalities. Peak T waves in V3. Discharge Plan Discharge Disposition Patient Disposition: 30 Still Patient Discharge Condition Condition: Good Discharge Details Diagnosis: Chest pain, Leukocytosis Physicians Team ED Provider: Adalid Reaves Primary Care Provider: Dane Monzon Attending Provider: Nils Dominguez Status ED Status: Left Department Discharge Information Discharge Date/Time: 05/03/18 20:48
[2018-05-03 16:16] LABS: Creatine Kinase MB 5.2 ng/mL (0.5-3.6)
[2018-05-03 18:46] LABS: Bilirubin,Urine Negative (Negative); Clarity,Urine Clear (Clear); Color,Urine Yellow (Yellw/Straw); Glucose,Urine (UA) Negative (Negative); Leukocyte Esterase,Urine Negative (Negative); Nitrite,Urine Negative (Negative); Specific Gravity,Urine 1.005 (1.002-1.035)
[2018-05-03 20:26] LABS: Creatine Kinase 106 U/L (39-308)
[2018-05-03 23:57] LABS: Creatine Kinase 97 U/L (39-308)
[2018-05-04] MEDS ORDERED: Aspirin 325 MG Tablet PO SCH (09:00)
[2018-05-04] MEDS ORDERED: Furosemide 40 MG Tablet PO SCH (10:00)
[2018-05-04] MEDS ORDERED: Regadenoson Inj 0.4 MG/5 ML Syringe IV.PUSH ONE (10:37)
[2018-05-04] MEDS ORDERED: Insulin NovoLIN Regular Correctional Sugar Inj SQ SCH (12:00)
[2018-05-04] MEDS: Lisinopril 10 MG Tablet PO SCH ×2 (12:09→13:06)
--- NOTE | 2018-05-04 14:10 | ECG ---
Date Performed: 05/03/2018 Time Performed: 22:31:32 PTAGE: 83 years EKG: Sinus rhythm WITH OCCASIONAL SUPRAVENTRICULAR PREMATURE COMPLEXES BORDERLINE ECG PREVIOUS TRACING : 05/03/2018 19.32 Since previous tracing, no significant change noted DOCTOR: Nils Dominguez Interpretating Date/Time 05/04/2018 14:09:14
--- NOTE | 2018-05-04 14:10 | ECG ---
Date Performed: 05/03/2018 Time Performed: 19:32:23 PTAGE: 83 years EKG: Sinus rhythm WITH OCCASIONAL SUPRAVENTRICULAR PREMATURE COMPLEXES BORDERLINE ECG PREVIOUS TRACING : 05/03/2018 13.58 Since previous tracing, no significant change noted DOCTOR: Nils Dominguez Interpretating Date/Time 05/04/2018 14:09:44
--- NOTE | 2018-05-04 14:11 | ECG ---
Date Performed: 05/03/2018 Time Performed: 13:58:31 PTAGE: 83 years EKG: Sinus rhythm WITH OCCASIONAL VENTRICULAR PREMATURE COMPLEXES WITH OCCASIONAL SUPRAVENTRICULAR PREMATURE COMPLEXES BORDERLINE ECG INTERPRETATION BASED ON A DEFAULT AGE OF 40 YEARS PREVIOUS TRACING : 01/26/2018 15.00 Since previous tracing, no significant change noted DOCTOR: Nils Dominguez Interpretating Date/Time 05/04/2018 14:10:18
== END 2018-05-04 13:24 | disposition home or self-care (01) ==
LOC: NEPC 13:52 → NEDA 13:52 → NEPFCDU 20:48
PROVIDERS: ADMIT Internal Medicine Cardiovascular Disease; ATTEND Internal Medicine Cardiovascular Disease